=== PATIENT | female | born 1950 | race Hispanic/Latino ===

== ENCOUNTER 2021-07-26 10:44 | Emergency (ER) | payer MEDICARE, OTHER ==
[~2021-07-26] VITALS: Ht 160 cm; Wt 67.1 kg
[2021-07-26 10:46] VITALS: BP 129/72
[2021-07-26 13:15] VITALS: BP 121/65
== END 2021-07-26 13:16 | disposition home or self-care (01) ==
LOC: EDH 10:44
DX: S92.332A Displaced fracture of third metatarsal bone, left foot, initial encounter for closed fracture (principal); E11.9 Type 2 diabetes mellitus without complications; E78.00 Pure hypercholesterolemia, unspecified; I10 Essential (primary) hypertension; W23.0XXA Caught, crushed, jammed, or pinched between moving objects, initial encounter; Y93.89 Activity, other specified; Y92.89 Other specified places as the place of occurrence of the external cause; Y99.8 Other external cause status
CPT/HCPCS: 73630

== ENCOUNTER → 2021-11-10 | Outpatient (CLI) | payer OTHER ==
[~2021-11-10] MED LIST: ACET-2247 PO; CALC-1009 PO; CLOP75TA32 PO; INSU100I15 SQ; INSU100V37 SQ; LISI10TA24 PO; METF-444 PO; OMEP20CA12 PO; OXYB10TA30 PO; PRAV40TA3 PO
== END | disposition home or self-care (01) ==
LOC: SHCH 13:59
PROVIDERS: ATTEND Internal Medicine Cardiovascular Disease
DX: I73.9 Peripheral vascular disease, unspecified (principal); I83.93 Asymptomatic varicose veins of bilateral lower extremities; E11.59 Type 2 diabetes mellitus with other circulatory complications; R53.83 Other fatigue; R60.0 Localized edema
CPT/HCPCS: 93925; 93970

== ENCOUNTER 2021-12-28 06:45 | Observation (INO) | payer OTHER ==
[2021-12-23 14:31] LABS: BASOPHILS % (AUTO) 0.5 % (0.0-5.0); EOSINOPHILS % (AUTO) 1.2 % (0.0-8.0); HEMATOCRIT 35.4 % (36-48); LYMPHOCYTES % (AUTO) 24.3 % (21.0-51.0); MEAN CORPUSCULAR HEMOGLOBIN 26.7 pg (27.0-33.0); MEAN CORPUSCULAR HGB CONC 31.9 g/dL (32.0-36.0); MEAN CORPUSCULAR VOLUME 83.5 fL (79-99); MONOCYTES % (AUTO) 6.5 % (3.0-13.0); NEUTROPHILS % (AUTO) 67.1 % (40.0-77.0); PLATELET COUNT (AUTO) 345 K/uL (130-400); RED BLOOD CELL COUNT(AUTO) 4.24 MIL/uL (4.00-5.50); RED CELL DISTRIBUTION WIDTH 13.6 % (11.0-15.5); WHITE BLOOD COUNT (AUTO) 8.4 K/uL (4.8-10.8)
[2021-12-23 14:42] LABS: CREATININE 0.6 mg/dL (0.5-1.5); POTASSIUM 3.9 mmol/L (3.5-5.1)
[2021-12-23 14:45] LABS: PROTHROMBIN TIME 10.9 SEC (9.6-11.6)
[2021-12-23 14:46] LABS: PARTIAL THROMBOPLASTIN TIME 25.9 SEC (26.3-35.5)
[2021-12-27 11:54] VITALS: BP 159/78
[2021-12-28] VITALS (24 sets, daily range): BP systolic 115–193; BP diastolic 56–86
[~2021-12-28] VITALS: Ht 160 cm; Wt 64.1 kg
[~2021-12-28 06:45] MED LIST changes: -ACET-2247 PO; +CEFAZOLIN SODIUM 1 GM VIAL IVP ONE
[2021-12-28] MEDS ORDERED: 0.9%NACL 1000ML 1,000 ML IV ONE (07:46)
[2021-12-28] MEDS ORDERED: CEFAZOLIN SODIUM 1 GM VIAL ONE (07:46)
[2021-12-28] MEDS ORDERED: LACTATED RINGERS 1000ML 1,000 ML IV SCH (08:00)
[2021-12-28] MEDS ORDERED: SUCCINYLCHOLINE CHLORIDE 20 MG/ML 10 ML VIAL ONE (08:43)
[2021-12-28] MEDS ORDERED: LIDOCAINE PF 100MG/5ML (2%) SYRINGE 5ML ONE (08:43)
[2021-12-28] MEDS ORDERED: FENTANYL CITRATE PF 50 MCG/1 ML 2ML VIAL ONE (08:44)
[2021-12-28] MEDS ORDERED: ROCURONIUM 10MG/1ML SYR 10 MG/ML ML ONE ×2 (08:44→11:18)
[2021-12-28] MEDS ORDERED: PROPOFOL 10 MG/ML 20ML VIAL IV ONE (08:44)
[2021-12-28] MEDS ORDERED: ROPIVACAINE 0.5% 5MG/ML 30ML IJ ONE (08:48)
[2021-12-28] MEDS ORDERED: MIDAZOLAM HCL 1 MG/ML 2ML VIAL ONE (09:37)
[2021-12-28] MEDS ORDERED: 0.9%NACL 10ML VIAL ONE (10:08)
[2021-12-28] MEDS ORDERED: PHENYLEPHRINE HCL 10 MG/ML 1ML VIAL IV ONE (10:08)
[2021-12-28] MEDS ORDERED: TRANEXAMIC ACID 1000MG/10ML ONE (10:20)
[2021-12-28] MEDS: 0.9%NACL 1000ML 1,000 ML IV SCH ×2 (10:30→22:49)
[2021-12-28] MEDS ORDERED: ONDANSETRON 4MG INJ IVP PRN (10:30)
[2021-12-28] MEDS: ACETAMINOPHEN 500 MG TABLET PO SCH ×2 (10:30→17:56)
[2021-12-28] MEDS ORDERED: MORPHINE 4 MG SYG IVP PRN (10:30)
[2021-12-28] MEDS ORDERED: HYDROCODONE/ACETAMINOPHEN 5/325 MG TAB PO PRN (10:30)
[2021-12-28] MEDS ORDERED: HYDROCODONE/ACETAMINOPHEN 10/325 MG TAB PO PRN (10:30)
[2021-12-28] MEDS ORDERED: EPHEDRINE SULFATE 50 MG/ML AMPULE ONE (11:16)
[2021-12-28] MEDS: INSULIN HUMULIN R 100 UNIT/ML 3ML SQ SCH ×3 (11:30→22:00)
[2021-12-28] MEDS ORDERED: GLYCOPYRROLATE 1 MG/5 ML SYRINGE ONE (11:58)
[2021-12-28] MEDS ORDERED: NEOSTIGMINE 5MG/5ML SYR IV ONE (11:58)
[2021-12-28] MEDS ORDERED: KETOROLAC 30MG VIAL (30MG/ML) ONE (11:59)
[2021-12-28] MEDS: TRAMADOL HCL 50 MG TABLET PO SCH ×2 (12:00→17:56)
[2021-12-28] MEDS ORDERED: ESMOLOL HCL 10 MG/ML 10 ML VIAL ONE (12:01)
[2021-12-28] MEDS: INSULIN LISPRO 100 UNIT/ML 3ML SQ SCH (12:32)
[2021-12-28] MEDS: CEFAZOLIN SODIUM 1 GM VIAL IVP SCH ×2 (15:46→22:49)
[2021-12-28] MEDS ORDERED: OXYBUTYNIN 5 MG TAB.SR.24H PO SCH (21:00)
[2021-12-28] MEDS: METFORMIN HCL 500 MG TABLET PO SCH (21:47)
[2021-12-28] MEDS: FAMOTIDINE 20MG TAB PO SCH (21:47)
[2021-12-28] MEDS: ASPIRIN 81 MG EC TAB PO SCH (21:47)
[2021-12-29] MEDS: TRAMADOL HCL 50 MG TABLET PO SCH ×3 (01:06→13:43)
[2021-12-29] MEDS: ACETAMINOPHEN 500 MG TABLET PO SCH ×2 (03:51→13:43)
[2021-12-29 04:31] VITALS: BP 144/83
[2021-12-29] MEDS: INSULIN HUMULIN R 100 UNIT/ML 3ML SQ SCH ×2 (05:43→11:30)
[2021-12-29 05:56] LABS: HEMATOCRIT 31.8 % (36-48); MEAN CORPUSCULAR HEMOGLOBIN 26.1 pg (27.0-33.0); MEAN CORPUSCULAR HGB CONC 31.1 g/dL (32.0-36.0); MEAN CORPUSCULAR VOLUME 83.7 fL (79-99); RED BLOOD CELL COUNT(AUTO) 3.8 MIL/uL (4.00-5.50); RED CELL DISTRIBUTION WIDTH 13.6 % (11.0-15.5); WHITE BLOOD COUNT (AUTO) 10.8 K/uL (4.8-10.8)
[2021-12-29 06:13] LABS: CREATININE 0.4 mg/dL (0.5-1.5); POTASSIUM 3.5 mmol/L (3.5-5.1)
[2021-12-29] MEDS: 0.9%NACL 1000ML 1,000 ML IV SCH (06:30)
[2021-12-29 07:58] VITALS: BP 138/69
[2021-12-29] MEDS: INSULIN LISPRO 100 UNIT/ML 3ML SQ SCH (08:27)
[2021-12-29] MEDS: ASPIRIN 81 MG EC TAB PO SCH (08:28)
[2021-12-29] MEDS: METFORMIN HCL 500 MG TABLET PO SCH (08:28)
[2021-12-29] MEDS: FAMOTIDINE 20MG TAB PO SCH (08:28)
[2021-12-29] MEDS ORDERED: INSULIN DEGLUDEC 64 UNIT SQ SCH (09:00)
[2021-12-29] MEDS ORDERED: LISINOPRIL 10 MG TABLET PO SCH (09:00)
[2021-12-29] MEDS ORDERED: POLYETHYLENE GLYCOL 3350 17 GM POWD.PACK PO SCH (09:00)
[2021-12-29 11:12] VITALS: BP 138/72
[2021-12-29 16:02] VITALS: BP 133/71
[2021-12-31] MEDS ORDERED: BISACODYL 10 MG SUPP.RECT RC PRN (10:30)
== END 2021-12-29 18:05 | disposition home or self-care (01) ==
LOC: DAH 06:45 → DAHIP 06:46 → 3AH 06:47
PROVIDERS: ADMIT Orthopaedic Surgery; ATTEND Orthopaedic Surgery
DX: S42.241A 4-part fracture of surgical neck of right humerus, initial encounter for closed fracture (principal); M25.511 Pain in right shoulder; I10 Essential (primary) hypertension; E11.9 Type 2 diabetes mellitus without complications; E78.00 Pure hypercholesterolemia, unspecified; Z79.84 Long term (current) use of oral hypoglycemic drugs; Z85.3 Personal history of malignant neoplasm of breast; Z79.899 Other long term (current) drug therapy; Z98.890 Other specified postprocedural states; W01.0XXA Fall on same level from slipping, tripping and stumbling without subsequent striking against object, initial encounter; Y93.89 Activity, other specified; Y92.89 Other specified places as the place of occurrence of the external cause; Y99.8 Other external cause status
CPT/HCPCS: 23472; 36415 ×2; 64415; 73030 ×2; 76942; 80048 ×2; 82948 ×7; 85025; 85027; 85610; 85730; 87635; 93005; 96372 ×2; 96374; 96375; 96376; 97039 ×2; 97116 ×2; 97161; 97530 ×2; A4215; A4221; A4222; A4223; A4565; A4600; A4649 ×4; A4663; A6212; A6260; C1776; C9803; G0378 ×27; J0330; J0690 ×3; J1815 ×3; J1885; J2001; J2250; J2270; J2370; J2405; J2704; J2710; J2795; J3010; J3490 ×4; J7030 ×3

== ENCOUNTER 2024-11-12 14:27 | Emergency (ER) | payer OTHER ==
[~2024-11-12] VITALS: Ht 162.6 cm; Wt 54.4 kg
[~2024-11-12 14:27] MED LIST changes: -CEFAZOLIN SODIUM 1 GM VIAL IVP ONE
[2024-11-12 15:03] LABS: BASOPHILS # (AUTO) 0.04 K/uL (0.00-0.20); BASOPHILS % (AUTO) 0.4 % (0.0-5.0); EOSINOPHILS # (AUTO) 0.03 K/uL (0.00-0.70); EOSINOPHILS % (AUTO) 0.3 % (0.0-8.0); HEMATOCRIT 38.2 % (36-48); IMMATURE GRANULOCYTE ABSOLUTE 0.05 K/uL (0-1); LYMPHOCYTES # (AUTO) 1.9 K/uL (1.0-4.8); LYMPHOCYTES % (AUTO) 17.3 % (21.0-51.0); MEAN CORPUSCULAR HEMOGLOBIN 26.2 pg (27.0-33.0); MEAN CORPUSCULAR HGB CONC 31.7 g/dL (32.0-36.0); MEAN CORPUSCULAR VOLUME 82.9 fL (79-99); MONOCYTES # (AUTO) 0.8 K/uL (0.1-1.0); MONOCYTES % (AUTO) 6.9 % (3.0-13.0); NEUTROPHILS # (AUTO) 8.1 K/uL (1.8-7.7); NEUTROPHILS % (AUTO) 74.6 % (40.0-77.0); PLATELET COUNT (AUTO) 317 K/uL (130-400); RED BLOOD CELL COUNT(AUTO) 4.61 MIL/uL (4.00-5.50); RED CELL DISTRIBUTION WIDTH 14.3 % (11.0-15.5); WHITE BLOOD COUNT (AUTO) 10.8 K/uL (4.8-10.8)
[2024-11-12 15:17] LABS: CREATININE 0.6 mg/dL (0.5-1.0); POTASSIUM 3.2 mmol/L (3.5-5.1)
[2024-11-12 15:24] LABS: B-TYPE NATRIURETIC PEPTIDE 29 pg/mL (0-100)
--- NOTE | 2024-11-12 15:45 | HMCIMG ---
CHEST 1VW HISTORY: Chest pain COMPARISON: None FINDINGS: A frontal projection of the chest was obtained. Prominent interstitial markings are seen with possible superimposed infiltrates. Right shoulder replacement changes are seen. The heart is borderline enlarged. Degenerative changes are seen. No evidence of aortic calcification is seen. IMPRESSION: 1. Prominent interstitial markings are seen with possible superimposed infiltrates.
--- NOTE | 2024-11-12 17:19 | ERN ---
General Chief Complaint: Mechanical Fall Stated Complaint: FALL YESTERDAY, CHEST AND BACK PAIN Time Seen by MD: 14:54 Time Seen by Midlevel: 14:54 Source: patient History of Present Illness Initial Comments 74-year-old female presents to the ED for evaluation post fall onset 1 day ago. Patient reports chest and back pain, but denies any LOC, head injury or any other associated symptoms at this time. Allergies: Coded Allergies: No Known Allergies (Unverified Allergy, Unknown, 07/26/21) Home Meds Reported Medications Lisinopril (Lisinopril) 10 Mg Tablet, 10 MG PO DAILY, TAB 12/27/21 Oxybutynin Chloride (Oxybutynin Chloride ER) 10 Mg Tab.er.24, 10 MG PO DAILY 12/27/21 Calcium Carb & Cit/Vitamin D3 (Calcium + D3 ER Tablet) 1 Each Tablet.er, 2 EACH PO DAILY, TAB 12/27/21 Clopidogrel Bisulfate (Clopidogrel) 75 Mg Tablet, 75 MG PO DAILY, TAB 12/27/21 Omeprazole (Omeprazole) 20 Mg Capsule.dr, 20 MG PO DAILY, CAP 12/27/21 Pravastatin Sodium (Pravastatin Sodium) 40 Mg Tablet, 40 MG PO HS, TAB 12/27/21 Metformin HCl (Metformin HCl) 500 Mg Tablet, 1000 MG PO BID, TAB 12/27/21 Insulin Lispro (Humalog) 100 Unit/1 Ml Insuln.pen, 6 UNITS SQ DAILY, SYRINGE 12/27/21 Insulin Degludec (Tresiba) 100 Unit/1 Ml Vial, 64 UNIT SQ DAILY, VIAL 12/27/21 Past Medical History Past Medical History: Diabetes-Type II Medical History Other: BREAT CANCER Past Surgical History: Other Surgical History Other: RIGHT LEG ROS Dictation Constitutional: Positive for fall Negative for fever,chills, and weight loss Eyes: Negative for injury, pain,redness, and discharge ENT: Negative for injury,pain or swelling Cardiovascular: Positive for its history negative for palpitations, and edema Respiratory: Negative for shortness of breath, cough, and wheezing, Abdomen/GI: Negative for abdominal pain, nausea, vomiting, diarrhea, and constipation Back: Positive for back pain : Negative for injury, bleeding and discharge MS/Extremity: Negative for injury and deformity Skin: Negative for rash, and discoloration Neuro: Negative for weakness, numbness, tingling, and seizure Psych: Negative for suicide ideation, homicidal ideation, and hallucinations Physical Exam Physical Exam Dictation General: awake, alert, NAD Head/Face: Normocephalic, atraumatic Eyes: PERRL, EOMI, vision at baseline ENT: oral cavity clear, TMs clear, no signs of infection Neck: Trachea midline, supple, no nuchal rigidity Cardiovascular: RRR, normal S1/S2, No MRGs, no JVD Respiratory: CTAB, no respiratory distress, No rales or wheezes Abdomen: Soft, non-tender, non-distended, normal bowel sounds, no guarding or rebound. Skin: Warm, dry, normal turgor, no rash MS/Extremity: Pulses equal, no cyanosis, neurovascular intact, FROM Neuro: COAx4, GCS 15, strength 5/5, CN 2-12 intact, normal cerebellar exam, normal gait, Psych: Normal behavior, mood, and affect normal Results Laboratory and Microbiology Lab and Micro Result Laboratory Tests Test 11/12/24 14:48 White Blood Count 10.8 K/uL (4.8-10.8) Red Blood Count 4.61 MIL/uL (4.00-5.50) Hemoglobin 12.1 g/dL (12.0-16.0) Hematocrit 38.2 % (36-48) Mean Corpuscular Volume 82.9 fL (79-99) Mean Corpuscular Hemoglobin 26.2 pg (27.0-33.0) L Mean Corpuscular Hemoglobin Concent 31.7 g/dL (32.0-36.0) L Red Cell Distribution Width 14.3 % (11.0-15.5) Platelet Count 317 K/uL (130-400) Mean Platelet Volume 11.2 fL (7.5-10.5) H Immature Granulocyte % (Auto) 0.5 % (0-1) Neutrophils (%) (Auto) 74.6 % (40.0-77.0) Lymphocytes (%) (Auto) 17.3 % (21.0-51.0) L Monocytes (%) (Auto) 6.9 % (3.0-13.0) Eosinophils (%) (Auto) 0.3 % (0.0-8.0) Basophils (%) (Auto) 0.4 % (0.0-5.0) Neutrophils # (Auto) 8.1 K/uL (1.8-7.7) H Lymphocytes # (Auto) 1.9 K/uL (1.0-4.8) Monocytes # (Auto) 0.8 K/uL (0.1-1.0) Eosinophils # (Auto) 0.03 K/uL (0.00-0.70) Basophils # (Auto) 0.04 K/uL (0.00-0.20) Absolute Immature Granulocyte (auto 0.05 K/uL (0-1) Nucleated Red Blood Cells 0.0 % (0.0-0.19) Sodium Level 140 mmol/L (136-145) Potassium Level 3.2 mmol/L (3.5-5.1) L Chloride Level 101 mmol/L (101-111) Carbon Dioxide Level 32 mmol/L (21-32) Blood Urea Nitrogen 11 mg/dL (7-18) Creatinine 0.6 mg/dL (0.5-1.0) Glomerular Filtration Rate Calc 93 mL/min (>90) Random Glucose 208 mg/dL (70-105) H Total Calcium 9.4 mg/dL (8.5-10.1) Total Creatine Kinase 228 U/L (21-232) B-Type Natriuretic Peptide 29 pg/mL (0-100) Labs Reviewed?: Yes MDM MDM: Differential diagnosis: Fall, chest pain, back pain Previous outside records reviewed: Old ER visits. Need for hospitalization: Patient does not meet criteria for hospitalization. Need for emergency major/minor surgery: No Patient's prior external medical records from other ER visits were reviewed by me as indicated. Prior testing and results from previous visits were reviewed. Prior tests were taken into account with medical decision making and resource utilization, independent historian/historians were used to obtain complete medical history. I independently interpreted the test that were performed, results were reviewed by me and considered findings on radiology if ordered. Medical management and examination interpretation discussions were had by me with other qualified healthcare professionals as indicated for the patient's care. ED Course Orders Procedure Category Date Status Time Vital Signs Per CPOE 11/12/24 Transmitted Routine 14:32 B-Type Natriuretic LAB 11/12/24 Complete Peptide 14:32 Chest 1vw RAD 11/12/24 Resulted 14:32 12 Lead Ekg Tracing- EKG 11/12/24 Logged Technical 14:32 Oxygen By Nc/Pulse Ox CPOE 11/12/24 Transmitted 14:32 Maintain Iv CPOE 11/12/24 Transmitted 14:32 Iv Insertion CPOE 11/12/24 Transmitted 14:32 Cardiac Monitoring CPOE 11/12/24 Transmitted 14:32 Pulse Oximetry With CPOE 11/12/24 Transmitted Vs And Prn 14:32 Cbc With Differential LAB 11/12/24 Complete 14:32 Activity: Br W/Brp CPOE 11/12/24 Transmitted With Assist 14:32 Creatine Kinase, Total LAB 11/12/24 Complete 14:32 Urinalysis Profile LAB 11/12/24 Logged 14:32 Troponin Poc Order LAB 11/12/24 Complete Only 14:32 Bedside Troponin-I LAB.ER 11/12/24 In Process (Poc) 14:32 Basic Metabolic Panel LAB 11/12/24 Complete 14:32 Ct Chest W/O Contrast CT 11/12/24 Resulted 17:04 Vital Signs Date Time Temp Pulse Resp B/P (MAP) Pulse Ox O2 Delivery O2 Flow Rate FiO2 11/12/24 14:27 98.8 88 20 189/107 98 Room Air [address] [address] IMAGING REPORT Signed PATIENT: KERWIN MORRISSEY MR#: [id number] : 1950 SEX: F AGE: 74 LOCATION: [facility] ORDER 06 STATUS: REG ER REPORT#: [id number] SERVICE 03 REASON: pain over thoracic vertebraes/ribs s/p fall ORDERING PHYSICIAN: POOJA CHAMBERS PROCEDURE: CHEST WO - CT CHEST W/O CONTRAST CT NONCONTRAST CHEST Comparison Study: none History: pain over thoracic vertebraes/ribs s/p fall Technique: Helical CT of the chest without IV contrast at 5 mm collimation. Coronal and sagittal reformations also done. CT Dose Index (CTDI): 2.38 mGy Dose Length Product (DLP): 94.8 total mGy-cm Findings: The airway is intact. The trachea and major bronchi are unremarkable. The chest exam shows no pulmonary nodules or masses. No significant pulmonary parenchymal abnormalities are noted. No pulmonary infiltrates or mass lesions are seen. No pleural effusions are identified. There is no pneumothorax. There is no evidence of pneumomediastinum. The nonenhanced exam of the [place] and mediastinum is unremarkable. No evidence of hilar enlargement is seen. The aorta shows no aneurysmal dilatation or significant atheromatous calcification. No significant brachiocephalic vascular abnormalities are seen. The heart is unremarkable. It is not enlarged. No significant coronary arterial calcifications are seen. There is no pericardial effusion. The rib cage appears unremarkable. The soft tissues of the chest wall are unremarkable. The dorsal spine shows no significant abnormalities. Moderate to large hiatal hernia. IMPRESSION: NORMAL CT OF THE CHEST WITHOUT CONTRAST. This study was performed using dose reduction techniques to include automated exposure control and/or adjustment of the mA and/or kV according to patient size. DICTATED BY: JOAQUIN FRANCOIS MD DATE: 11/12/241733 ELECTRONICALLY SIGNED BY: JOAQUIN FRANCOIS MD DATE: 11/12/241736 [place] [id number] IMAGING REPORT Signed PATIENT: KERWIN MORRISSEY MR#: [id number] : 1950 SEX: F AGE: 74 LOCATION: [facility] ORDER 32 STATUS: [facility] REPORT#: [id number] SERVICE 143 REASON: CHEST PAIN ORDERING PHYSICIAN: MONICA CARTAGENA MD PROCEDURE: CXR1VW - CHEST 1VW CHEST 1VW HISTORY: Chest pain COMPARISON: None FINDINGS: A frontal projection of the chest was obtained. Prominent interstitial markings are seen with possible superimposed infiltrates. Right shoulder replacement changes are seen. The heart is borderline enlarged. Degenerative changes are seen. No evidence of aortic calcification is seen. IMPRESSION: 1. Prominent interstitial markings are seen with possible superimposed infiltrates. DICTATED BY: ZEV JOHNSON MD DATE: 11/12/241542 ELECTRONICALLY SIGNED BY: ZEV JOHNSON MD DATE: 11/12/241544 DX & DISP Disposition: Discharge Departure Impression: Primary Impression: Chest wall contusion Additional Impression: Muscle strain of upper back Condition: Stable Additional Instructions: Your chest x-ray and CT scan of the chest are negative for any acute fracture or injury. Your blood work today is stable. You will need to follow up with your primary care doctor in 2-3 days for repeat evaluation. You may take Tylenol and Motrin for pain. Referrals: FILIPE SUERO MD (PCP) I have reviewed, & agreed with my scribe's, documentation. (Entered by Harvey Henson, acting as a scribe for TYE Chambers) I have reviewed the case, and I agree with, Diagnosis and Plan I performed the substantive portion of the visit. I have reviewed and pers onally made and approve the management plan that is documented in the note by myself or the JOE. I acknowledge for responsibility for the patient's management plan. I personally scribed for POOJA CHAMBERS ([facility]) on 11/12/24 at 17:19. Electronically submitted by Harvey Henson ([email or web address]). POOJA CHAMBERS Nov 12, 2024 17:19
--- NOTE | 2024-11-12 17:37 | HMCIMG ---
CT NONCONTRAST CHEST Comparison Study: none History: pain over thoracic vertebraes/ribs s/p fall Technique: Helical CT of the chest without IV contrast at 5 mm collimation. Coronal and sagittal reformations also done. CT Dose Index (CTDI): 2.38 mGy Dose Length Product (DLP): 94.8 total mGy-cm Findings: The airway is intact. The trachea and major bronchi are unremarkable. The chest exam shows no pulmonary nodules or masses. No significant pulmonary parenchymal abnormalities are noted. No pulmonary infiltrates or mass lesions are seen. No pleural effusions are identified. There is no pneumothorax. There is no evidence of pneumomediastinum. The nonenhanced exam of the [place] and mediastinum is unremarkable. No evidence of hilar enlargement is seen. The aorta shows no aneurysmal dilatation or significant atheromatous calcification. No significant brachiocephalic vascular abnormalities are seen. The heart is unremarkable. It is not enlarged. No significant coronary arterial calcifications are seen. There is no pericardial effusion. The rib cage appears unremarkable. The soft tissues of the chest wall are unremarkable. The dorsal spine shows no significant abnormalities. Moderate to large hiatal hernia. IMPRESSION: NORMAL CT OF THE CHEST WITHOUT CONTRAST. This study was performed using dose reduction techniques to include automated exposure control and/or adjustment of the mA and/or kV according to patient size.
--- NOTE | 2024-11-12 17:55 | NUR ---
ASSUMED CARE AT THIS TIME. PT MOVED INTO INTERNAL WAITING AREA FOR ASSESSMENT AND DISCHARGE INSTRUCTIONS.
[2024-11-12 17:56] VITALS: BP 144/87; PULSE 85; RESP 20; TEMP 96.6; O2SAT 97
--- NOTE | 2024-11-13 08:22 | EKG ---
[facility] Test Date: 2024-11-12 Test Time: 14:25:14 Pat Name: KERWIN MORRISSEY Department: [facility] Room: Gender: F Environmental Education Specialist: [id number] : 1950 Requested By: MONICA CARTAGENA Order Number: [id number] Reading MD: Corby Allen Measurements Intervals [place] Rate: 86 P: 88 HI: 151 QRS: 79 QRSD: 82 T: 83 QT: 386 QTc: 463 Interpretive Statements Sinus rhythm Consider left ventricular hypertrophy ST elevation, consider inferior injury Compared to ECG 12/23/2021 15:22:21 ST (T wave) deviation now present Myocardial infarct finding now present Electronically Signed On 11-13-2024 17:02:08 STAFF TOXICOLOGIST by Corby Allen Please click the below link to view image of tracing.
== END 2024-11-12 18:00 | disposition home or self-care (01) ==
LOC: EDH 14:27
DX: S29.012A Strain of muscle and tendon of back wall of thorax, initial encounter (principal); S20.219A Contusion of unspecified front wall of thorax, initial encounter; E11.9 Type 2 diabetes mellitus without complications; Z79.02 Long term (current) use of antithrombotics/antiplatelets; Z79.4 Long term (current) use of insulin; Z79.84 Long term (current) use of oral hypoglycemic drugs; Z79.899 Other long term (current) drug therapy; W18.39XA Other fall on same level, initial encounter; Y93.89 Activity, other specified; Y92.89 Other specified places as the place of occurrence of the external cause; Y99.8 Other external cause status
CPT/HCPCS: 36415; 71045; 71250; 80048; 82550; 83880; 84484; 85025; 93005; 99285

== ENCOUNTER 2024-11-19 05:27 | Emergency (ER) | payer OTHER ==
[~2024-11-19] VITALS: Ht 162.6 cm; Wt 53.5 kg
[2024-11-19] MEDS: diazePAM 2 MG TAB PO ONE (06:41)
[2024-11-19] MEDS: LIDOCAINE 5% TOPICAL PATCH TP ONE (06:42)
[2024-11-19] MEDS: morPHINE 2 MG SYG IM ONE (06:42)
--- NOTE | 2024-11-19 06:43 | ERN ---
ED Note History of Present Illness Stated Complaint: BACK PAIN Chief Complaint: Back Pain or Injury Time Seen by MD: 05:33 Dictation: This 74-year-old female presents in the emergency department by EMS complaining of pain in the upper back since a fall a couple of weeks ago. The patient was seen here November 12 after the fall and had a CT scan of the chest which was read as normal. At that time she had some blood work which showed mild hypokalemia. A chest x-ray was normal. She was discharged home and advised to take Tylenol which she has been doing without relief. She describes the pain as constant. It is exacerbated by movements in interfering with her ability to sleep. The patient denies any distal weakness, numbness or tingling. She has had no ENT symptoms nausea, vomiting or diarrhea, constipation or or GI symptoms. There has been no fever or cough and no shortness of breath. She describes the pain as in the upper back located in the whole of the back radiating from [id number] in the area of the scapula and trapezius. The patient has a history of breast cancer cared for in the remote past by , she has not followed up in a long time for this problem. She has had surgery of the right leg and has a history of diabetes. The patient does not smoke, drink use recreational drugs. She lives alone Allergies: Coded Allergies: No Known Allergies (Unverified Allergy, Unknown, 07/26/21) Home Meds Reported Medications Lisinopril (Lisinopril) 10 Mg Tablet, 10 MG PO DAILY, TAB 12/27/21 Oxybutynin Chloride (Oxybutynin Chloride ER) 10 Mg Tab.er.24, 10 MG PO DAILY 12/27/21 Calcium Carb & Cit/Vitamin D3 (Calcium + D3 ER Tablet) 1 Each Tablet.er, 2 EACH PO DAILY, TAB 12/27/21 Clopidogrel Bisulfate (Clopidogrel) 75 Mg Tablet, 75 MG PO DAILY, TAB 12/27/21 Omeprazole (Omeprazole) 20 Mg Capsule.dr, 20 MG PO DAILY, CAP 12/27/21 Pravastatin Sodium (Pravastatin Sodium) 40 Mg Tablet, 40 MG PO HS, TAB 12/27/21 Metformin HCl (Metformin HCl) 500 Mg Tablet, 1000 MG PO BID, TAB 12/27/21 Insulin Lispro (Humalog) 100 Unit/1 Ml Insuln.pen, 6 UNITS SQ DAILY, SYRINGE 12/27/21 Insulin Degludec (Tresiba) 100 Unit/1 Ml Vial, 64 UNIT SQ DAILY, VIAL 12/27/21 Past Medical History Past Medical History: Diabetes-Type II Additional Past Medical Hx: BREAT CANCER Surgical History: Other Surgical History Other: RIGHT LEG History: Not Applicable RN Note Reviewed/Agreed w/PFSH: Yes Review of System Dictation All pertinent systems reviewed, negative except as documented in the HPI The ROS is obtained from patient GENERAL/CONSTITUTIONAL: Negative except as documented in HPI. ENT: Negative except as documented in HPI. CARDIOVASCULAR: Negative except as documented in HPI. RESPIRATORY: Negative except as documented in HPI. GASTROINTESTINAL: Negative except as documented in HPI. GENITOURINARY: Negative except as documented in HPI. MUSCULOSKELETAL: Negative except as documented in HPI. SKIN: Negative except as documented in HPI. NEUROLOGIC: Negative except as documented in HPI. Initial Vital Sign VS Vital Signs Date Time Temp Pulse Resp B/P (MAP) Pulse Ox O2 Delivery O2 Flow Rate FiO2 11/19/24 05:31 98.4 80 16 181/77 99 Room Air 0 11/19/24 06:15 21 Physical Exam Dictation VITAL SIGNS: note is made of triage vital signs CONSTITUTIONAL: This is a nontoxic patient who is awake, alert, and appropriately interactive. She is noted to be very uncomfortable when she tries to sit up or turn from [id number]. HEAD: Normocephalic, Atraumatic. EYES: Periorbital areas with no swelling, redness, or edema. Lids and lashes are normal. Conjunctival injection is absent. Sclera anicteric. Pupils equal, round, reactive to light. ENT: No nasal discharge noted. Posterior pharynx is without exudate, redness, swelling, masses, or evidence of obstruction. Uvula midline. Mucous membranes moist. NECK: Trachea midline, no masses palpated, and no cervical lymphadenopathy. No swelling. Supple, full range of motion without nuchal rigidity. No vertebral point tenderness. No meningismus. CHEST/AXILLA: Normal chest wall appearance and motion. No tenderness. No crepitus. CV: Normal rate, regular rhythm. No murmur. No edema. RESPIRATORY:Respiratory rate is normal. Bilateral equal breath sounds with good airflow. Normal breath sounds are noted. No rales, rhonchi or wheezes noted. No increased work of breathing, no retractions. ABDOMEN: Inspection normal. No distention is appreciated. Bowel sounds are normal. No mass or organomegaly is appreciated. There is no tenderness. No rebound. No rigidity. No voluntary or involuntary guarding. BACK: Inspection is normal. Upper back midline tenderness is appreciated. The patient appears uncomfortable when moving. : No CVA tenderness or bladder tenderness. SKIN: Warm, dry, with normal turgor. Capillary refill less than 3 seconds. Normal color.No rash. No cellulitis or abscess. No evidence of acute injury. MS/Extremity: There is no calf tenderness. Baseline range of motion is noted in all 4 extremities. There are no deformities. NEURO: Awake and alert, lucid. Facies symmetric and speech is clear. Motor strength 5/5 in all extremities. Sensory grossly intact. PSYCH: Patient is appropriately attentive and cooperative without evidence of hallucination. Results (Laboratory/Radiology) Laboratory/Radiology Laboratory Tests Test 11/19/24 06:32 White Blood Count 8.6 K/uL (4.8-10.8) Red Blood Count 4.43 MIL/uL (4.00-5.50) Hemoglobin 11.5 g/dL (12.0-16.0) L Hematocrit 36.6 % (36-48) Mean Corpuscular Volume 82.6 fL (79-99) Mean Corpuscular Hemoglobin 26.0 pg (27.0-33.0) L Mean Corpuscular Hemoglobin Concent 31.4 g/dL (32.0-36.0) L Red Cell Distribution Width 14.8 % (11.0-15.5) Platelet Count 316 K/uL (130-400) Mean Platelet Volume 10.6 fL (7.5-10.5) H Immature Granulocyte % (Auto) 0.3 % (0-1) Neutrophils (%) (Auto) 61.9 % (40.0-77.0) Lymphocytes (%) (Auto) 28.8 % (21.0-51.0) Monocytes (%) (Auto) 7.5 % (3.0-13.0) Eosinophils (%) (Auto) 0.9 % (0.0-8.0) Basophils (%) (Auto) 0.6 % (0.0-5.0) Neutrophils # (Auto) 5.3 K/uL (1.8-7.7) Lymphocytes # (Auto) 2.5 K/uL (1.0-4.8) Monocytes # (Auto) 0.6 K/uL (0.1-1.0) Eosinophils # (Auto) 0.08 K/uL (0.00-0.70) Basophils # (Auto) 0.05 K/uL (0.00-0.20) Absolute Immature Granulocyte (auto 0.03 K/uL (0-1) Nucleated Red Blood Cells 0.0 % (0.0-0.19) Erythrocyte Sedimentation Rate 20 MM/HR (0-30) Sodium Level 141 mmol/L (136-145) Potassium Level 3.6 mmol/L (3.5-5.1) Chloride Level 102 mmol/L (101-111) Carbon Dioxide Level 35 mmol/L (21-32) H Blood Urea Nitrogen 10 mg/dL (7-18) Creatinine 0.4 mg/dL (0.5-1.0) L Glomerular Filtration Rate Calc 103 mL/min (>90) Random Glucose 146 mg/dL (70-105) H Total Calcium 9.1 mg/dL (8.5-10.1) C-Reactive Protein, Quantitative 9.00 mg/L (0.5-3.0) H Labs Reviewed?: Yes EKG Comment: Time reviewed: 6:50 a.m. EKG number; 1 Rate and rhythm: Sinus rhythm at 75 beats per minute [place]:normal Morphology: Left ventricular hypertrophy NV interval: normal QT interval: normal ST/Twaves: normal Impression: normal sinus rhythm without STEMI or ectopy Comparison EKG: none EKG INTERPRETATION by Dr. Sia Khanna ED Course ED Course Orders Procedure Category Date Status Time Diazepam 2 Mg Tab PHA 11/19/24 Complete (Valium 2 Mg Tab) 06:30 Morphine 2mg Syg PHA 11/19/24 Complete (Morphine 2mg Syg) 06:30 Lidocaine (Lidoderm PHA 11/19/24 Complete Patch 5%) 06:30 12 Lead Ekg Tracing- EKG 11/19/24 Complete Technical 06:19 Cbc With Differential LAB 11/19/24 Complete 06:19 Basic Metabolic Panel LAB 11/19/24 Complete 06:19 Crp Quantitative LAB 11/19/24 Complete 06:19 Erythrocyte LAB 11/19/24 Complete Sedimentation Rate 06:19 Current Medications Medications (Trade) Dose Ordered Sig/Jessica Route PRN Reason Start Time Stop Time Status Last Admin Dose Admin Diazepam (VALium 2 mg Tab) 2 mg ONCE ONCE PO 11/19/24 06:30 11/19/24 06:38 DC 11/19/24 06:41 Lidocaine (Lidoderm Patch 5%) 1 patch ONCE ONCE TP 11/19/24 06:30 11/19/24 06:38 DC 11/19/24 06:42 Morphine Sulfate (morPHINE 2MG SYG) 2 mg ONCE ONCE IM 11/19/24 06:30 11/19/24 06:38 DC 11/19/24 06:42 Vital Signs Date Time Temp Pulse Resp B/P (MAP) Pulse Ox O2 Delivery O2 Flow Rate FiO2 11/19/24 06:15 98.4 82 18 157/87 99 Room Air* 0 21 11/19/24 05:31 98.4 80 16 181/77 99 Room Air 0 Medical Decision Making MDM INITIAL IMPRESSION Initial history and physical concerning for bony injury versus acute exacerbation of arthritic disease Contributing medical problems: Previous history of breast cancer raises the possibility of malignant spinal disease or bony disease I have reviewed the triage nursing notes and vital signs. The patient is afebrile with acceptable oxygen saturation, heart rate and blood pressure. Initial plan: I will be reviewing her previous studies and repeating some lab works and she was hypokalemic on last visit DATA REVIEW I have reviewed additional NN, repeat VS, and monitoring where indicated. Heart rate, blood pressure, and O2 saturation are acceptable. [place] diagnostic results: CBC is notable for mild anemia. Chemistries show a glucose of 146. Calcium is 9.1. CRP is nine but an ESR is 20 Other independent historian: none Review of external data: The patient's CT of the chest was read as unremarkable including bony structures. However on my review there was an upper thoracic vertebral body, possibly T3 with compression findings I will be confirming this with Radiology over-read during the patient's stay Call was placed to the on-call radiologist for today at 7:35 a.m.. At 8:25 a.m. we continue to await his call back I was able to reach the on-call radiologist approximately 9:05 a.m.. He reviewed the film and acknowledged the presence of the compression fracture but felt that it had no characteristics of metastatic disease and no evidence of significant compression to the cord or other ominous finding. ED COURSE Interventions: The patient initially received something for muscle relaxation, Valium and some pain medication morphine but states that now the pain has moved over more to the right flank area. Reassessment: She continues to complain of pain but appears well and nontoxic without evidence of malignant or infectious disease. Plan is to treat with a dose of steroids and nonsteroidals here and prescribe a small amount of Tylenol codeine to be used at home until she can see her PCP this week DISPOSITION Final diagnostic impression: Back pain without evidence of neurologic compromise, malignant finding on recent CT, or signs of infection I discussed my findings, clinical impression and treatment recommendations with the patient. I have reviewed the social factors contributing to the patient's presentation and disposition planning. My final plan for disposition was made based upon clinical findings, response to treatment and discussion with the patient regarding management options. I consulted with the radiologist regarding a finding on the CT scan done on the 12 of November Hospitalization is not indicated due to low risk of short term progression, complication, morbidity or mortality related to the current diagnosis At the time of discharge, the vital signs are within acceptable limits. Repeat examination: Alert and comfortable the patient is able to move around more freely and is interactive Repeat exam does not show any new ominous findings Patient has been able to take oral liquids. The discharge treatment plan includes pain medication and close follow up with the PCP I reviewed the use of the pain medication and its side effects Incidental findings discussed: I discussed the finding on the CT scan with her Questions were invited and answered in layman's terms. I have emphasized my follow-up recommendations and reviewed ED return precautions. I have answered any questions in layman's terms. The patient understands that they will have to arrange for out-patient follow-up for recheck of today's condition. The patient is stable and appropriate for discharge from the ED. This dictation was prepared using e-Tag voice recognition software. Occasional voice recognition errors may occur. When identified, these errors have been corrected. While every attempt is made to correct errors during dictation, errors may still exist. DX & DISP Disposition: Discharge Decision to Admit Date: Nov 19, 2024 Decision to Admit Time: 09:18 Departure Impression: Primary Impression: Thoracic back pain Additional Impression: Subacute compression Fracture of the upper thoracic spine Condition: Stable Scripts Acetaminophen with Codeine (Acetaminophen-Cod #3 Tablet) 300 Mg-30 Mg Tablet 1 TAB PO Q6H PRN for PAIN LEVEL 2 TO 5, #20 TAB 0 Refills Prov: SIA KHANNA MD 11/19/24 Additional Instructions: Use the Tylenol codeine one tablet every 6 hours as needed for severe pain. You may combine it with one regular strength Tylenol. It is sedating. Do not mix with alcohol or other sedating drugs. Do not drive or operate heavy machinery for 6 hours after taking this medication. Use ugup-bgt-oohaxhz creams such as icy hot or Yrn-Pisano for discomfort. Follow up with your family physician in the next 2-3 days. Return to the emergency department for fever or difficulty breathing. For immediate assistance at home dial 911 Referrals: DAMARIS PIZARRO MD (PCP) Time of Disposition: 09:48 SIA KHANNA MD Nov 19, 2024 06:43
[2024-11-19 06:46] LABS: BASOPHILS # (AUTO) 0.05 K/uL (0.00-0.20); BASOPHILS % (AUTO) 0.6 % (0.0-5.0); EOSINOPHILS # (AUTO) 0.08 K/uL (0.00-0.70); EOSINOPHILS % (AUTO) 0.9 % (0.0-8.0); HEMATOCRIT 36.6 % (36-48); IMMATURE GRANULOCYTE ABSOLUTE 0.03 K/uL (0-1); LYMPHOCYTES # (AUTO) 2.5 K/uL (1.0-4.8); LYMPHOCYTES % (AUTO) 28.8 % (21.0-51.0); MEAN CORPUSCULAR HGB CONC 31.4 g/dL (32.0-36.0); MEAN CORPUSCULAR VOLUME 82.6 fL (79-99); MONOCYTES # (AUTO) 0.6 K/uL (0.1-1.0); MONOCYTES % (AUTO) 7.5 % (3.0-13.0); NEUTROPHILS # (AUTO) 5.3 K/uL (1.8-7.7); NEUTROPHILS % (AUTO) 61.9 % (40.0-77.0); PLATELET COUNT (AUTO) 316 K/uL (130-400); RED BLOOD CELL COUNT(AUTO) 4.43 MIL/uL (4.00-5.50); RED CELL DISTRIBUTION WIDTH 14.8 % (11.0-15.5); WHITE BLOOD COUNT (AUTO) 8.6 K/uL (4.8-10.8)
--- NOTE | 2024-11-19 06:48 | EKG ---
[facility] Test Date: 2024-11-19 Test Time: 06:45:58 Pat Name: KERWIN MORRISSEY Department: ED[facility] Room: Gender: F Radiology Specialist: [id number] : 1950 Requested By: SIA KHANNA Order Number: [id number] Reading MD: bA Nam Measurements Intervals [place] Rate: 75 P: 37 AK: 153 QRS: 32 QRSD: 88 T: 57 QT: 388 QTc: 435 Interpretive Statements Sinus rhythm Consider left ventricular hypertrophy Compared to ECG 11/12/2024 14:25:14 ST (T wave) deviation no longer present Myocardial infarct finding no longer present Electronically Signed On 11-19-2024 17:25:49 [employer] by Ab Nam Please click the below link to view image of tracing.
[2024-11-19 06:56] LABS: CREATININE 0.4 mg/dL (0.5-1.0); POTASSIUM 3.6 mmol/L (3.5-5.1)
--- NOTE | 2024-11-19 07:00 | NUR ---
REPORT RECEIVED FROM JOJO CARTER
--- NOTE | 2024-11-19 07:20 | NUR ---
ASSESSMENT: PT AWAKE AND ALERT. WHEN ASKED HOW SHE WAS DOING, SHE STATED THAT SHE STILL HAD SOEM BACK PAIN. I DID INFORM PT THAT THE ED MD WOULD HAVE THE RADIOLOGIST TAKE ANOTHER LOOK AT THE CT SCAN SHE HAD DONE LAST WEEK WHEN SHE INITIALLY HAD HER FALL D/T AN ABNORMAL FINDING BY THE ED MD. PT OTHERWISE DOES NOT APPEART TO BE IN ANY ACUTE DISTRESS AT THIS TIME. PT IS ABLE TO MOVE ALL HER EXTREMITIES AND DENIES DECREASED SENSATION. +CMS DISTALLY. HER DISCOMFORT IS UP HIGH IN HER BACK.
[2024-11-19 08:01] LABS: ERYTHROCYTE SEDIMENTATION RATE 20 MM/HR (0-30)
--- NOTE | 2024-11-19 08:59 | NUR ---
PENDING DISPOSITION BY ED MD
--- NOTE | 2024-11-19 09:09 | NUR ---
ED MADE AWARE OF PT THOUGHTS ON HER DISPOSITION
[2024-11-19] MEDS ORDERED: ACET-2079 PO (09:21)
[2024-11-19] MEDS: dexaMETHasone SOD PHOSPHATE 4 MG/ML 1ML VIAL IM ONE (09:27)
[2024-11-19] MEDS: ketOROlac 30MG VIAL (30MG/ML) IM ONE (09:27)
[2024-11-19 09:34] VITALS: BP 177/84; PULSE 69; RESP 17; TEMP 97.9; O2SAT 100
== END 2024-11-19 10:00 | disposition home or self-care (01) ==
LOC: EDH 05:27
DX: M54.6 Pain in thoracic spine (principal); M48.54XA Collapsed vertebra, not elsewhere classified, thoracic region, initial encounter for fracture; E11.9 Type 2 diabetes mellitus without complications; Z79.02 Long term (current) use of antithrombotics/antiplatelets; Z79.4 Long term (current) use of insulin; Z79.84 Long term (current) use of oral hypoglycemic drugs; Z79.899 Other long term (current) drug therapy
CPT/HCPCS: 99284; 80048; 85025; 85651; 86140; 36415; 96372 ×3; 93005; J1100; J2270; J1885

== ENCOUNTER 2024-11-30 21:24 | Emergency (ER) | payer MEDICARE, OTHER ==
[~2024-11-30] VITALS: Ht 162.6 cm; Wt 53.5 kg
[~2024-11-30 21:24] MED LIST changes: +ACET-2079 PO
[2024-11-30 21:25] VITALS: O2SAT 97
[2024-11-30 21:26] VITALS: BP 184/81; PULSE 91; RESP 16; TEMP 99
--- NOTE | 2024-11-30 22:01 | HMCIMG ---
RIGHT WRIST RADIOGRAPHS - 3 VIEWS INDICATION: Pain COMPARISON: None FINDINGS: AP, lateral, and oblique views. No evidence for acute fracture or subluxation. Scaphoid bone is intact. Ulnar variance is within normal limits. Carpal alignment is well maintained. Arterial wall calcific plaque. IMPRESSION: No evidence for fracture or dislocation.
--- NOTE | 2024-11-30 22:13 | ERN ---
General Chief Complaint: Wrist Pain/Injury Stated Complaint: R WRIST PAIN Time Seen by MD: 21:26 Time Seen by Midlevel: 21:26 Source: patient, EMS History of Present Illness Initial Comments Patient is a 74-year-old female being brought in by EMS following a mechanical ground level fall that occurred prior to arrival. Patient states she accidentally fell and landed with her right hand out stress. She reports pain to her right wrist but denies any other injury at this time. Denies loss of consciousness or head injury. Denies being on any blood thinners. Patient has no other concerns on arrival. Allergies: Coded Allergies: No Known Allergies (Unverified Allergy, Unknown, 07/26/21) Home Meds Active Scripts Acetaminophen with Codeine (Acetaminophen-Cod #3 Tablet) 300 Mg-30 Mg Tablet, 1 TAB PO Q6H PRN for PAIN LEVEL 2 TO 5, #20 TAB 0 Refills Prov:SIA KHANNA MD 11/19/24 Reported Medications Lisinopril (Lisinopril) 10 Mg Tablet, 10 MG PO DAILY, TAB 12/27/21 Oxybutynin Chloride (Oxybutynin Chloride ER) 10 Mg Tab.er.24, 10 MG PO DAILY 12/27/21 Calcium Carb & Cit/Vitamin D3 (Calcium + D3 ER Tablet) 1 Each Tablet.er, 2 EACH PO DAILY, TAB 12/27/21 Clopidogrel Bisulfate (Clopidogrel) 75 Mg Tablet, 75 MG PO DAILY, TAB 12/27/21 Omeprazole (Omeprazole) 20 Mg Capsule.dr, 20 MG PO DAILY, CAP 12/27/21 Pravastatin Sodium (Pravastatin Sodium) 40 Mg Tablet, 40 MG PO HS, TAB 12/27/21 Metformin HCl (Metformin HCl) 500 Mg Tablet, 1000 MG PO BID, TAB 12/27/21 Insulin Lispro (Humalog) 100 Unit/1 Ml Insuln.pen, 6 UNITS SQ DAILY, SYRINGE 12/27/21 Insulin Degludec (Tresiba) 100 Unit/1 Ml Vial, 64 UNIT SQ DAILY, VIAL 12/27/21 Past Medical History Past Medical History: Diabetes-Type II Medical History Other: BREAST CANCER Past Surgical History: Other Surgical History Other: RIGHT LEG Female( History) History: Not Applicable ROS Dictation CONSTITUTIONAL: Negative except for HPI HEAD/FACE: Negative except for HPI EENT: Negative except for HPI RESPIRATORY: Negative except for HPI GASTROINTESTINAL/ABDOMINAL: Negative except for HPI GENITOURINARY: Negative except for HPI MUSCULOSKELETAL: Negative except for HPI INTEGUMENTARY: Negative except for HPI NEUROLOGICAL/PSYCH: Negative except for HPI HEMATOLOGIC/LYMPHATIC: Negative except for HPI All Systems Negative, Except as noted above. 13 point review of systems assessed and all negative except for above. Physical Exam Physical Exam Dictation PHYSICAL EXAM: GENERAL: alert,, awake oriented x 3 HEENT: EOMI, Sclera non icteric, moist mucosa NECK: Supple, no JVD, trachea midline LUNGS: Clear breath sounds bilaterally. No wheezes HEART: Regular rate and rhythm. Normal S1 and S2, without murmurs ABD: Abdomen soft, nontender. Bowel sounds present EXT: Tenderness over the distal ulnar aspect of the right wrist, no swelling, radial pulses intact, full range motion of all five digits of the right hand, sensation intact, normal capillary refill NEURO: Alert and oriented to person, follows commands MDM MDM: Differential diagnosis: Fracture, contusion, dislocation There are no social concerns with this patient. Prescription drug management Prescriptions will include: Tylenol or Motrin Medical management and examination interpretation discussions were had by me with other qualified healthcare professionals as indicated for the patient's care. ED Course Orders Procedure Category Date Status Time Wrist Comp 3+Vws Rt RAD 11/30/24 Resulted 21:27 Vital Signs Date Time Temp Pulse Resp B/P (MAP) Pulse Ox O2 Delivery O2 Flow Rate FiO2 11/30/24 21:26 99.0 91 16 184/81 97 Room Air 0 11/30/24 21:25 99.0 91 16 184/81 97 Room Air* [address] [address] IMAGING REPORT Signed PATIENT: KERWIN MORRISSEY MR#: [id number] : 1950 SEX: F AGE: 74 LOCATION: [facility] ORDER 29 STATUS: REG ER REPORT#: [id number] SERVICE 26 REASON: FALL ORDERING PHYSICIAN: POOJA CARNEY PROCEDURE: WRST 3V RT - WRIST COMP 3+VWS RT RIGHT WRIST RADIOGRAPHS - 3 VIEWS INDICATION: Pain COMPARISON: None FINDINGS: AP, lateral, and oblique views. No evidence for acute fracture or subluxation. Scaphoid bone is intact. Ulnar variance is within normal limits. Carpal alignment is well maintained. Arterial wall calcific plaque. IMPRESSION: No evidence for fracture or dislocation. DICTATED BY: ANATOLY RUBY MD DATE: 11/30/242155 ELECTRONICALLY SIGNED BY: ANATOLY RUBY MD DATE: 11/30/242200 DX & DISP Disposition: Discharge Departure Impression: Primary Impression: Contusion of right wrist Additional Impression: Fall Condition: Stable Additional Instructions: YOUR RIGHT WRIST X-RAY DOES NOT SHOW ANY EVIDENCE OF A FRACTURE OR DISLOCATION. YOU MAY TAKE TYLENOL AND MOTRIN FOR PAIN. FOLLOW UP WITH YOUR DOCTOR IN 2-3 DAYS FOR REPEAT EVALUATION. Referrals: DAMARIS PIZARRO MD (PCP) Time of Disposition: 22:13 I have reviewed the case, and I agree with, Diagnosis and Plan I PERFORMED THE SUBSTANTIVE PORTION OF THE VISIT. I HAVE REVIEWED AND PE RSONALLY MADE AND APPROVE THE MANAGEMENT PLAN THAT IS DOCUMENTED IN THE NOTE BY MYSELF OR THE JOE. I ACKNOWLEDGE FOR RESPONSIBILITY FOR THE PATIENT'S MANAGEMENT PLAN. POOJA CARNEY Nov 30, 2024 22:13
== END 2024-11-30 22:14 | disposition home or self-care (01) ==
LOC: EDH 21:24
DX: S60.211A Contusion of right wrist, initial encounter (principal); E11.9 Type 2 diabetes mellitus without complications; Z79.02 Long term (current) use of antithrombotics/antiplatelets; Z79.4 Long term (current) use of insulin; Z79.84 Long term (current) use of oral hypoglycemic drugs; Z79.899 Other long term (current) drug therapy; Z98.890 Other specified postprocedural states; W18.39XA Other fall on same level, initial encounter; Y93.89 Activity, other specified; Y92.89 Other specified places as the place of occurrence of the external cause; Y99.8 Other external cause status
CPT/HCPCS: 73110; 99283

== ENCOUNTER 2024-12-15 16:49 | Emergency (ER) | payer MEDICARE ==
[~2024-12-15] VITALS: Ht 157.5 cm; Wt 61.2 kg
[~2024-12-15 16:49] MED LIST changes: +CEFD300C3 PO; +LIDO-112 TP
--- NOTE | 2024-12-15 17:35 | HMCIMG ---
Exam: NONCONTRAST CT BRAIN REASON: fall/ hematoma. COMPARISON: None. TECHNIQUE: Images are obtained from vertex to the skull base. The exam was performed without IV contrast. FINDINGS: There are generous ventricles and sulci. There is decreased attenuation in the deep central white matter. These findings are consistent with atrophy. There are no acute appearing focal parenchymal lesions. There is no evidence of mass, intracranial hemorrhage or acute stroke. Posterior fossa and brainstem structures appear unremarkable. There are no abnormal fluid collections. There is a scalp contusion in the right frontal region. There is no evidence of underlying fracture. IMPRESSION: 1. Atrophy, no acute intracranial finding. 2. Right frontal scalp contusion without evidence of fracture. CT was performed with one or more following dose reduction techniques: automated exposure control, adjustment of the mA and kv according to patient's size, or use of a iterative reconstruction technique.
--- NOTE | 2024-12-15 18:32 | ERN ---
ED Note History of Present Illness Stated Complaint: FACIAL INJURY POST TRIP/FALL Chief Complaint: Head, Face, Neck Trauma Time Seen by MD: 16:54 Time Seen by Midlevel: 17:00 Dictation: 74-year-old female with a history of cholesterol, hypertension, diabetes coming in with complaints of a trip and fall hitting her head on the concrete. Patient denies any LOC and denies any blood thinners. Allergies: Coded Allergies: No Known Allergies (Unverified Allergy, Unknown, 07/26/21) Home Meds Active Scripts Lidocaine (Pain Relief Patch) 4 % Adh..patch, 1 EACH TP DAILY for 10 Days, #10 A DH.PATCH 2 Refills Prov:LENKA CLARK MD 12/11/24 Cefdinir (Cefdinir) 300 Mg Capsule, 1 CAP PO BID for 5 Days, #10 CAP 0 Refills Prov:LENKA CLARK MD 12/11/24 Acetaminophen with Codeine (Acetaminophen-Cod #3 Tablet) 300 Mg-30 Mg Tablet, 1 TAB PO Q6H PRN for PAIN LEVEL 2 TO 5, #20 TAB 0 Refills Prov:SIA KHANNA MD 11/19/24 Reported Medications Lisinopril (Lisinopril) 10 Mg Tablet, 10 MG PO DAILY, TAB 12/27/21 Oxybutynin Chloride (Oxybutynin Chloride ER) 10 Mg Tab.er.24, 10 MG PO DAILY 12/27/21 Calcium Carb & Cit/Vitamin D3 (Calcium + D3 ER Tablet) 1 Each Tablet.er, 2 EACH PO DAILY, TAB 12/27/21 Clopidogrel Bisulfate (Clopidogrel) 75 Mg Tablet, 75 MG PO DAILY, TAB 12/27/21 Omeprazole (Omeprazole) 20 Mg Capsule.dr, 20 MG PO DAILY, CAP 12/27/21 Pravastatin Sodium (Pravastatin Sodium) 40 Mg Tablet, 40 MG PO HS, TAB 12/27/21 Metformin HCl (Metformin HCl) 500 Mg Tablet, 1000 MG PO BID, TAB 12/27/21 Insulin Lispro (Humalog) 100 Unit/1 Ml Insuln.pen, 6 UNITS SQ DAILY, SYRINGE 12/27/21 Insulin Degludec (Tresiba) 100 Unit/1 Ml Vial, 64 UNIT SQ DAILY, VIAL 12/27/21 Past Medical History Past Medical History: Diabetes-Type II, Hypertension, Other Additional Past Medical Hx: FALLS, PENDING NH PLACEMENT 12.16.2024 Surgical History: Unknown Surgical History Other: RIGHT LEG Family History: Negative Social History: Negative History: Not Applicable Review of System Dictation Constitutional: Negative for fever,chills, and weight loss Eyes: Negative for injury, pain,redness, and discharge ENT: Negative for injury,pain or swelling Cardiovascular: Negative for chest pain, palpitations, and edema Respiratory: Negative for shortness of breath, cough, and wheezing, Abdomen/GI: Negative for abdominal pain, nausea, vomiting, diarrhea, and constipation Back: Negative for injury and pain : Negative for injury, bleeding and discharge MS/Extremity: Negative for injury and deformity Skin: Negative for rash, and discoloration Neuro: Negative for headache, weakness, numbness, tingling, and seizure Psych: Negative for suicide ideation, homicidal ideation, and hallucinations Review of Systems: was completed Initial Vital Sign VS Vital Signs Date Time Temp Pulse Resp B/P (MAP) Pulse Ox O2 Delivery O2 Flow Rate FiO2 12/15/24 16:52 98.1 93 16 167/93 96 Room Air 0 12/15/24 17:19 21 Physical Exam Dictation General: awake, alert, NAD Head/Face: Normocephalic, atraumatic Eyes: PERRL, EOMI, vision at baseline ENT: oral cavity clear, TMs clear, no signs of infection Neck: Trachea midline, supple, no nuchal rigidity Cardiovascular: RRR, normal S1/S2, No MRGs, no JVD Respiratory: CTAB, no respiratory distress, No rales or wheezes Abdomen: Soft, non-tender, non-distended, normal bowel sounds, no guarding or rebound. Skin: Warm, dry, normal turgor, no rash MS/Extremity: Pulses equal, no cyanosis, neurovascular intact, FROM Neuro: COAx4, GCS 15, strength 5/5, CN 2-12 intact, normal cerebellar exam, normal gait, Psych: Normal behavior, mood, and affect normal Results (Laboratory/Radiology) CT Scan Comment: [address] [place] [id number] IMAGING REPORT Signed PATIENT: KERWIN MORRISSEY MR#: [id number] : 1950 SEX: F AGE: 74 LOCATION: [facility] ORDER 58 STATUS: REG ER REPORT#: [id number] SERVICE 58 REASON: fall/ hematoma ORDERING PHYSICIAN: MARYBETH BEE NP PROCEDURE: HEAD WO - CT HEAD/BRAIN W/O CONTRAST Exam: NONCONTRAST CT BRAIN REASON: fall/ hematoma. COMPARISON: None. TECHNIQUE: Images are obtained from vertex to the skull base. The exam was performed without IV contrast. FINDINGS: There are generous ventricles and sulci. There is decreased attenuation in the deep central white matter. These findings are consistent with atrophy. There are no acute appearing focal parenchymal lesions. There is no evidence of mass, intracranial hemorrhage or acute stroke. Posterior fossa and brainstem structures appear unremarkable. There are no abnormal fluid collections. There is a scalp contusion in the right frontal region. There is no evidence of underlying fracture. IMPRESSION: 1. Atrophy, no acute intracranial finding. 2. Right frontal scalp contusion without evidence of fracture. CT was performed with one or more following dose reduction techniques: automated exposure control, adjustment of the mA and kv according to patient's size, or use of a iterative reconstruction technique. DICTATED BY: FLORIDALMA GUERRA MD DATE: 12/15/241731 ELECTRONICALLY SIGNED BY: FLORIDALMA GUERRA MD DATE: 12/15/241734 ED Course ED Course Orders Procedure Category Date Status Time Ct Head/Brain W/O CT 12/15/24 Resulted Contrast 16:59 Vital Signs Date Time Temp Pulse Resp B/P (MAP) Pulse Ox O2 Delivery O2 Flow Rate FiO2 12/15/24 17:19 98.1 93 16 167/93 96 Room Air* 0 21 12/15/24 16:52 98.1 93 16 167/93 96 Room Air 0 Medical Decision Making MDM MDM: 74-year-old female with a history of cholesterol, hypertension, diabetes coming in with complaints of a trip and fall hitting her head on the concrete. Patient denies any LOC and denies any blood thinners. As per family member at bedside patient has been having altered mental status for the last couple of months, they think it is Alzheimer's but there has not been diagnosed. Patient has an appointment tomorrow at two for placement at a long term. CT scan of the head shows no acute findings. Family will take patient home. Discussed with family symptoms to follow up back in the ER like altered mentation, nausea, vomiting and severe headache. Differential diagnosis: ICH, right scalp hematoma, Rationale: Tests considered and ordered secondary to shared decision making include: Previous outside records reviewed: Old ER visits. Risk of complication and/or morbidity or mortality of patient management: None Medications-Per medication reconciliation Need for hospitalization: Patient does not meet criteria for hospitalization. Need for emergency major/minor surgery: No There are no social concerns with this patient. Prescription drug management Prescriptions will include symptomatic care Patient's prior external medical records from other ER visits were reviewed by me as indicated. Prior testing and results from previous visits were reviewed. Prior tests were taken into account with medical decision making and resource utilization, independent historian/historians were used to obtain complete medical history. I independently interpreted the test that were performed, results were reviewed by me and considered findings on radiology if ordered. Medical management and examination interpretation discussions were had by me with other qualified healthcare professionals as indicated for the patient's care. DX & DISP Disposition: Discharge Departure Impression: Primary Impression: Fall Additional Impression: Hematoma of scalp Condition: Stable Additional Instructions: Please keep your appointment for tomorrow to find placement and long term, report to the ER if the patient develops any severe headaches, nausea, vomiting. Follow up with her PCP as scheduled on . Referrals: DAMARIS PIZARRO MD (PCP) Time of Disposition: 19:05 I have reviewed the case, and I agree with, Diagnosis and Plan MARYBETH BEE NP Dec 15, 2024 18:32
[2024-12-15 19:14] VITALS: BP 142/78; PULSE 88; RESP 16; TEMP 98.1; O2SAT 96
== END 2024-12-15 19:16 | disposition home or self-care (01) ==
LOC: EDH 16:49
DX: S00.03XA Contusion of scalp, initial encounter (principal); E11.9 Type 2 diabetes mellitus without complications; I10 Essential (primary) hypertension; Z79.02 Long term (current) use of antithrombotics/antiplatelets; Z79.4 Long term (current) use of insulin; Z79.84 Long term (current) use of oral hypoglycemic drugs; Z79.899 Other long term (current) drug therapy; W01.0XXA Fall on same level from slipping, tripping and stumbling without subsequent striking against object, initial encounter; Y93.89 Activity, other specified; Y92.89 Other specified places as the place of occurrence of the external cause; Y99.8 Other external cause status
CPT/HCPCS: 70450; 99284

== ENCOUNTER 2024-12-16 12:21 | Inpatient (IN) | payer MEDICARE ==
[~2024-12-16] VITALS: Ht 162.6 cm; Wt 54.0 kg
[2024-12-16 13:34] LABS: APPEARANCE,URINE CLEAR (CLEAR); BILIRUBIN,URINE NEGATIVE (NEGATIVE); COLOR,URINE YELLOW (YELLOW); GLUCOSE, URINE (UA) 200 mg/dL (NEGATIVE); KETONES,URINE 20 mg/dL (NEGATIVE); LEUKOCYTE ESTERASE ,URINE NEGATIVE Leu/uL (NEGATIVE); NITRATE,URINE NEGATIVE (NEGATIVE); OCCULT BLOOD,URINE NEGATIVE (NEGATIVE); PH,URINE 6.5 (5.0-8.0); PROTEIN,URINE 30 mg/dL (NEGATIVE)
[2024-12-16 13:44] LABS: ADD UA MICROSCOPIC YES
[2024-12-16 13:49] LABS: MUCUS,URINE RARE LPF (None Seen); RBC,URINE 0-1 /HPF (0-1); SQUAMOUS EPITHELIAL CELL,UR RARE /HPF (0-2); WBC,URINE 0-1 /HPF (0-1)
[2024-12-16 14:00] LABS: BASOPHILS # (AUTO) 0.04 K/uL (0.00-0.20); BASOPHILS % (AUTO) 0.3 % (0.0-5.0); EOSINOPHILS # (AUTO) 0.01 K/uL (0.00-0.70); EOSINOPHILS % (AUTO) 0.1 % (0.0-8.0); HEMATOCRIT 38.6 % (36-48); IMMATURE GRANULOCYTE ABSOLUTE 0.08 K/uL (0-1); LYMPHOCYTES # (AUTO) 1.7 K/uL (1.0-4.8); LYMPHOCYTES % (AUTO) 11.1 % (21.0-51.0); MEAN CORPUSCULAR HEMOGLOBIN 25.9 pg (27.0-33.0); MEAN CORPUSCULAR HGB CONC 31.3 g/dL (32.0-36.0); MEAN CORPUSCULAR VOLUME 82.5 fL (79-99); MONOCYTES # (AUTO) 1.2 K/uL (0.1-1.0); MONOCYTES % (AUTO) 7.7 % (3.0-13.0); NEUTROPHILS # (AUTO) 12.3 K/uL (1.8-7.7); NEUTROPHILS % (AUTO) 80.3 % (40.0-77.0); PLATELET COUNT (AUTO) 338 K/uL (130-400); RED BLOOD CELL COUNT(AUTO) 4.68 MIL/uL (4.00-5.50); RED CELL DISTRIBUTION WIDTH 14.9 % (11.0-15.5); WHITE BLOOD COUNT (AUTO) 15.3 K/uL (4.8-10.8)
--- NOTE | 2024-12-16 14:02 | HMCIMG ---
CT HEAD/BRAIN W/O CONTRAST HISTORY: Status post fall COMPARISON: None TECHNIQUE: Multiple sequential axial images of the head were obtained from the base of the skull through vertex. Patient was not given contrast through intravenous route. FINDINGS: The ventricles and extraventricular CSF spaces are dilated consistent with cerebral atrophy. Nonspecific white matter changes seen. Right frontal scalp soft tissue swelling/hematoma is seen. There is no midline shift, mass effect or herniation. No acute intracranial bleed is seen. Visualized portion of the paranasal sinuses are grossly within normal limits. There is atherosclerosis. IMPRESSION: 1. No acute intracranial bleed is seen. 2. Atrophy with white matter changes. CT was performed with one or more following dose reduction techniques: automated exposure control, adjustment of the mA and kv according to patient's size, or use of a iterative reconstruction technique.
[2024-12-16 14:13] LABS: CREATININE 0.5 mg/dL (0.5-1.0); POTASSIUM 3.4 mmol/L (3.5-5.1)
--- NOTE | 2024-12-16 14:40 | HMCIMG ---
CHEST 1VW HISTORY: Dizziness COMPARISON: 12/26/2024 FINDINGS: A frontal projection of the chest was obtained. No acute pulmonary infiltrates is seen. The heart is borderline enlarged. Postop changes are seen of right shoulder. No evidence of aortic calcification is seen. Degenerative changes are seen. IMPRESSION: 1. No acute pulmonary infiltrate is seen.
--- NOTE | 2024-12-16 15:04 | NUR ---
TROP 107 ERMD MADE AWARE
--- NOTE | 2024-12-16 15:14 | EKG ---
[facility] Test Date: 2024-12-16 Test Time: 12:45:55 Pat Name: KERWIN MORRISSEY Department: ED Room: 421 Gender: F [employer]: [id number] : 1950 Requested By: MARYBETH BEE Order Number: [id number] Reading MD: Ab Nam Measurements Intervals [place] Rate: 77 P: 52 ID: [id number] QRS: 55 QRSD: 92 T: 58 QT: 421 QTc: 477 Interpretive Statements Sinus rhythm Borderline ST elevation, anterior leads Compared to ECG 12/09/2024 04:46:27 ST (T wave) deviation now present Ventricular premature complex(es) no longer present Electronically Signed On 12-17-2024 17:06:52 DIRECTOR BUILDING by Ab Nam Please click the below link to view image of tracing.
--- NOTE | 2024-12-16 15:32 | HMCIMG ---
CT CERVICAL SPINE W/O CONTRAST HISTORY: Status post fall COMPARISON: None TECHNIQUE: Multiple sequential axial images of the cervical spine were obtained including post processing sagittal and coronal reconstruction images. Patient was not given contrast through intravenous route. FINDINGS: There are degenerative changes with cervical spine spondylosis. There is atherosclerosis. There is straightening of normal lordotic cervical curvature which may be related to muscle spasm or positioning. There is no loss of vertebral height. Evaluation for disc and cord pathology is limited with CT study. No evidence of fracture or dislocation is seen. IMPRESSION: 1. No fracture is seen. DJD. CT was performed with one or more following dose reduction techniques: automated exposure control, adjustment of the mA and kv according to patient's size, or use of a iterative reconstruction technique.
--- NOTE | 2024-12-16 15:33 | HMCIMG ---
CT MAXILLOFACIAL W/O CONTRAST HISTORY: Status post fall COMPARISON: None TECHNIQUE: Multiple sequential high-resolution axial images of the paranasal sinuses were obtained. Postprocessing sagittal and coronal reconstruction images were also obtained. Patient was not given contrast through intravenous route. FINDINGS: Nasal septum is grossly midline. There is no evidence of mucoperiosteal thickening involving the paranasal sinuses. The infundibula are patent bilaterally. No acute displaced fracture is seen. There is no evidence of air-fluid level in the paranasal sinuses. Parapharyngeal fat planes are preserved bilaterally. With dilatation is noted. IMPRESSION: 1. No acute displaced fracture is seen. CT was performed with one or more following dose reduction techniques: automated exposure control, adjustment of the mA and kv according to patient's size, or use of a iterative reconstruction technique.
--- NOTE | 2024-12-16 16:10 | HMCIMG ---
PELVIS 1-2VWS HISTORY: Status post fall COMPARISON: None TECHNIQUE: Frontal projection of the pelvis was obtained. FINDINGS: Bilateral hip joint space is seen. There is no acute displaced fracture or dislocation. Degenerative changes are seen. IMPRESSION: 1. Findings as described above.
--- NOTE | 2024-12-16 16:29 | ERN ---
ED Note History of Present Illness Stated Complaint: MECHANICAL FALL,MULTIPLE COMPLAINTS Chief Complaint: Mechanical Fall Time Seen by MD: 12:28 Time Seen by Midlevel: 12:33 Dictation: 74-year-old female brought in by family member for fall, patient is lives by herself in his morning when they went to go check on her she was on the ground. Patient was also seen yesterday for another fall. According to family members as patient has had multiple falls throughout the last couple of weeks. They are concerned because the patient lives by herself. According to the family member patient was supposed to have an appointment today to see if she qualified for penitentiary but states she found her on the ground decided to bring her in for re-evaluation. Allergies: Coded Allergies: No Known Allergies (Unverified Allergy, Unknown, 07/26/21) Home Meds Active Scripts Levofloxacin (Levaquin 750Mg Tabs) 750 Mg Tablet, 750 MG PO Q24H, #10 TAB Prov:NAKUL CHENG [employer] 12/21/24 Hydralazine HCl (Apresoline) 25 Mg Tab, 25 MG PO BID, #60 TAB Prov:NAKUL CHENG [employer] 12/21/24 Reported Medications Lisinopril (Lisinopril) 10 Mg Tablet, 10 MG PO DAILY, TAB 12/27/21 Oxybutynin Chloride (Oxybutynin Chloride ER) 10 Mg Tab.er.24, 10 MG PO DAILY 12/27/21 Calcium Carb & Cit/Vitamin D3 (Calcium + D3 ER Tablet) 1 Each Tablet.er, 2 EACH PO DAILY, TAB 12/27/21 Clopidogrel Bisulfate (Clopidogrel) 75 Mg Tablet, 75 MG PO DAILY, TAB 12/27/21 Omeprazole (Omeprazole) 20 Mg Capsule.dr, 20 MG PO DAILY, CAP 12/27/21 Pravastatin Sodium (Pravastatin Sodium) 40 Mg Tablet, 40 MG PO HS, TAB 12/27/21 Metformin HCl (Metformin HCl) 500 Mg Tablet, 1000 MG PO BID, TAB 12/27/21 Insulin Lispro (Humalog) 100 Unit/1 Ml Insuln.pen, 6 UNITS SQ DAILY, SYRINGE 12/27/21 Insulin Degludec (Tresiba) 100 Unit/1 Ml Vial, 64 UNIT SQ DAILY, VIAL 12/27/21 Discontinued Scripts Lidocaine (Pain Relief Patch) 4 % Adh..patch, 1 EACH TP DAILY for 10 Days, #10 ADH.PATCH 2 Refills Prov:LENKA CLARK MD 12/11/24 Cefdinir (Cefdinir) 300 Mg Capsule, 1 CAP PO BID for 5 Days, #10 CAP 0 Refills Prov:LENKA CLARK MD 12/11/24 Acetaminophen with Codeine (Acetaminophen-Cod #3 Tablet) 300 Mg-30 Mg Tablet, 1 TAB PO Q6H PRN for PAIN LEVEL 2 TO 5, #20 TAB 0 Refills Prov:SIA KHANNA MD 11/19/24 Past Medical History Past Medical History: Cancer, Hypertension Additional Past Medical Hx: FALLS, PENDING NH PLACEMENT 12.16.2024 Surgical History: Cholecystectomy, Other Surgical History Other: R MASECTOMY, SPINAL SURGERY Family History: Negative Social History: Negative History: Not Applicable Review of System Dictation Constitutional: Negative for fever,chills, and weight loss Eyes: Negative for injury, pain,redness, and discharge ENT: Negative for injury,pain or swelling Cardiovascular: Negative for chest pain, palpitations, and edema Respiratory: Negative for shortness of breath, cough, and wheezing, Abdomen/GI: Negative for abdominal pain, nausea, vomiting, diarrhea, and constipation Back: Negative for injury and pain : Negative for injury, bleeding and discharge MS/Extremity: Negative for injury and deformity Skin: Negative for rash, and discoloration Neuro: Positive for headache, no weakness, no numbness, no tingling, and no seizure Psych: Negative for suicide ideation, homicidal ideation, and hallucinations Review of Systems: was completed Initial Vital Sign VS Vital Signs Date Time Temp Pulse Resp B/P (MAP) Pulse Ox O2 Delivery O2 Flow Rate FiO2 12/16/24 12:32 98.1 74 16 146/68 99 Room Air 0 12/16/24 12:52 21 Physical Exam Dictation General: awake, alert, NAD Head/Face: Normocephalic, patient has hematoma to the right scalp, bruising noted extending from her right upper lid to her right upper forehead Eyes: PERRL, EOMI, vision at baseline ENT: oral cavity clear, TMs clear, no signs of infection Neck: Trachea midline, supple, no nuchal rigidity Cardiovascular: RRR, normal S1/S2, No MRGs, no JVD Respiratory: CTAB, no respiratory distress, No rales or wheezes Abdomen: Soft, non-tender, non-distended, normal bowel sounds, no guarding or rebound. Skin: Warm, dry, normal turgor, no rash MS/Extremity: Pulses equal, no cyanosis, neurovascular intact, FROM Neuro: COAx4, GCS 15, strength 5/5, CN 2-12 intact, normal cerebellar exam, normal gait, Psych: Normal behavior, mood, and affect normal Results (Laboratory/Radiology) Laboratory/Radiology Laboratory Tests Test 12/19/24 16:36 12/19/24 19:23 12/20/24 05:03 12/20/24 06:14 Whole Blood Glucose 217 MG/DL (70-110) H 193 MG/DL (70-110) H 117 MG/DL (70-110) H Bedside Glucose Comment Notified Nurse White Blood Count 7.9 K/uL (4.8-10.8) Red Blood Count 4.01 MIL/uL (4.00-5.50) Hemoglobin 10.3 g/dL (12.0-16.0) L Hematocrit 33.7 % (36-48) L Mean Corpuscular Volume 84.0 fL (79-99) Mean Corpuscular Hemoglobin 25.7 pg (27.0-33.0) L Mean Corpuscular Hemoglobin Concent 30.6 g/dL (32.0-36.0) L Red Cell Distribution Width 15.1 % (11.0-15.5) Platelet Count 324 K/uL (130-400) Mean Platelet Volume 11.0 fL (7.5-10.5) H Immature Granulocyte % (Auto) 0.4 % (0-1) Neutrophils (%) (Auto) 63.7 % (40.0-77.0) Lymphocytes (%) (Auto) 28.0 % (21.0-51.0) Monocytes (%) (Auto) 6.0 % (3.0-13.0) Eosinophils (%) (Auto) 1.3 % (0.0-8.0) Basophils (%) (Auto) 0.6 % (0.0-5.0) Neutrophils # (Auto) 5.0 K/uL (1.8-7.7) Lymphocytes # (Auto) 2.2 K/uL (1.0-4.8) Monocytes # (Auto) 0.5 K/uL (0.1-1.0) Eosinophils # (Auto) 0.10 K/uL (0.00-0.70) Basophils # (Auto) 0.05 K/uL (0.00-0.20) Absolute Immature Granulocyte (auto 0.03 K/uL (0-1) Nucleated Red Blood Cells 0.0 % (0.0-0.19) Sodium Level 142 mmol/L (136-145) Potassium Level 4.2 mmol/L (3.5-5.1) Chloride Level 106 mmol/L (101-111) Carbon Dioxide Level 29 mmol/L (21-32) Blood Urea Nitrogen 8 mg/dL (7-18) Creatinine 0.4 mg/dL (0.5-1.0) L Glomerular Filtration Rate Calc 103 mL/min (>90) Random Glucose 118 mg/dL (70-105) H Total Calcium 8.5 mg/dL (8.5-10.1) Magnesium Level 1.80 mg/dL (1.80-2.40) Total Bilirubin 0.3 mg/dL (0.2-1.0) Aspartate Amino Transf (AST/SGOT) 39 U/L (10-37) H Alanine Aminotransferase (ALT/SGPT) 31 U/L (12-78) Alkaline Phosphatase 180 U/L (50-136) H Total Creatine Kinase 463 U/L (21-232) #*H Total Protein 5.9 g/dL (6.0-8.3) L Albumin 2.6 g/dL (3.5-5.0) L Test 12/20/24 11:08 12/20/24 15:12 12/20/24 19:27 12/21/24 06:35 Whole Blood Glucose 168 MG/DL (70-110) H 207 MG/DL (70-110) H 75 MG/DL (70-110) # 100 MG/DL (70-110) Bedside Glucose Comment Notified Nurse Notified Nurse Test 12/21/24 11:20 12/21/24 15:21 Whole Blood Glucose 166 MG/DL (70-110) #H 103 MG/DL (70-110) Labs Reviewed?: Yes X-RAY Comment: [facility] [id number] [id number] IMAGING REPORT Signed PATIENT: KERWIN MORRISSEY MR#: [id number] : 1950 SEX: F AGE: 74 LOCATION: [facility] ORDER 1432 STATUS: REG ER HOSPITAL REPORT#: [id number] SERVICE 1431 REASON: fall ORDERING PHYSICIAN: MARYBETH BEE NP PROCEDURE: PELVIS - PELVIS 1-2VWS PELVIS 1-2VWS HISTORY: Status post fall COMPARISON: None TECHNIQUE: Frontal projection of the pelvis was obtained. FINDINGS: Bilateral hip joint space is seen. There is no acute displaced fracture or dislocation. Degenerative changes are seen. IMPRESSION: 1. Findings as described above. DICTATED BY: ZEV JOHNSON MD DATE: 12/16/24 1606 ELECTRONICALLY SIGNED BY: ZEV JOHNSON MD DATE: 12/16/[address] [id number] IMAGING REPORT Signed PATIENT: KERWIN MORRISSEY MR#: [id number] : 1950 SEX: F AGE: 74 LOCATION: ED ORDER 1240 STATUS: REG ER HOSPITAL REPORT#: [id number] SERVICE 1239 REASON: dizzines ORDERING PHYSICIAN: MARYBETH BEE NP PROCEDURE: CXR1VW - CHEST 1VW CHEST 1VW HISTORY: Dizziness COMPARISON: 12/26/2024 FINDINGS: A frontal projection of the chest was obtained. No acute pulmonary infiltrates is seen. The heart is borderline enlarged. Postop changes are seen of right shoulder. No evidence of aortic calcification is seen. Degenerative changes are seen. IMPRESSION: 1. No acute pulmonary infiltrate is seen. DICTATED BY: ZEV JOHNSON MD DATE: 12/16/24 1425 ELECTRONICALLY SIGNED BY: ZEV JOHNSON MD DATE: 12/16/[address] Scan Comment: [address] [id number] IMAGING REPORT Signed PATIENT: KERWIN MORRISSEY MR#: [id number] : 1950 SEX: F AGE: 74 LOCATION: [facility] ORDER 31 STATUS: REG ER REPORT#: [id number] SERVICE 143 REASON: fall, hematoma ORDERING PHYSICIAN: MARYBETH BEE NP PROCEDURE: MAXFACI WO - CT MAXILLOFACIAL W/O CONTRAST CT MAXILLOFACIAL W/O CONTRAST HISTORY: Status post fall COMPARISON: None TECHNIQUE: Multiple sequential high-resolution axial images of the paranasal sinuses were obtained. Postprocessing sagittal and coronal reconstruction images were also obtained. Patient was not given contrast through intravenous route. FINDINGS: Nasal septum is grossly midline. There is no evidence of mucoperiosteal thickening involving the paranasal sinuses. The infundibula are patent bilaterally. No acute displaced fracture is seen. There is no evidence of air-fluid level in the paranasal sinuses. Parapharyngeal fat planes are preserved bilaterally. With dilatation is noted. IMPRESSION: 1. No acute displaced fracture is seen. CT was performed with one or more following dose reduction techniques: automated exposure control, adjustment of the mA and kv according to patient's size, or use of a iterative reconstruction technique. DICTATED BY: ZEV JOHNSON MD DATE: 12/16/241529 ELECTRONICALLY SIGNED BY: ZEV JOHNSON MD DATE: 12/16/[address] [address] IMAGING REPORT Signed PATIENT: KERWIN MORRISSEY MR#: [id number] : 1950 SEX: F AGE: 74 LOCATION: ED ORDER 31 STATUS: REG ER [facility] REPORT#: [id number] SERVICE 30 REASON: fall, hematoma ORDERING PHYSICIAN: MARYBETH BEE NP PROCEDURE: C SPIN WO - CT CERVICAL SPINE W/O CONTRAST CT CERVICAL SPINE W/O CONTRAST HISTORY: Status post fall COMPARISON: None TECHNIQUE: Multiple sequential axial images of the cervical spine were obtained including post processing sagittal and coronal reconstruction images. Patient was not given contrast through intravenous route. FINDINGS: There are degenerative changes with cervical spine spondylosis. There is atherosclerosis. There is straightening of normal lordotic cervical curvature which may be related to muscle spasm or positioning. There is no loss of vertebral height. Evaluation for disc and cord pathology is limited with CT study. No evidence of fracture or dislocation is seen. IMPRESSION: 1. No fracture is seen. DJD. CT was performed with one or more following dose reduction techniques: automated exposure control, adjustment of the mA and kv according to patient's size, or use of a iterative reconstruction technique. DICTATED BY: ZEV JOHNSON MD DATE: 12/16/24 1514 ELECTRONICALLY SIGNED BY: ZEV JOHNSON MD DATE: 12/16/[address] [address] IMAGING REPORT Signed PATIENT: KERWIN MORRISSEY MR#: [id number] : 1950 SEX: F AGE: 74 LOCATION: [facility] ORDER 1240 STATUS: REG REPORT#: [id number] SERVICE 1239 REASON: fall/dizziness ORDERING PHYSICIAN: MARYBETH BEE NP PROCEDURE: HEAD WO - CT HEAD/BRAIN W/O CONTRAST CT HEAD/BRAIN W/O CONTRAST HISTORY: Status post fall COMPARISON: None TECHNIQUE: Multiple sequential axial images of the head were obtained from the base of the skull through vertex. Patient was not given contrast through intravenous route. FINDINGS: The ventricles and extraventricular CSF spaces are dilated consistent with cerebral atrophy. Nonspecific white matter changes seen. Right frontal scalp soft tissue swelling/hematoma is seen. There is no midline shift, mass effect or herniation. No acute intracranial bleed is seen. Visualized portion of the paranasal sinuses are grossly within normal limits. There is atherosclerosis. IMPRESSION: 1. No acute intracranial bleed is seen. 2. Atrophy with white matter changes. CT was performed with one or more following dose reduction techniques: automated exposure control, adjustment of the mA and kv according to patient's size, or use of a iterative reconstruction technique. DICTATED BY: ZEV JOHNSON MD DATE: 12/16/24 1357 ELECTRONICALLY SIGNED BY: ZEV JOHNSON MD DATE: 12/16/24 1402 ED Course ED Course Orders Procedure Category Date Status Time Case Management CM 12/19/24 Transmitted Evaluation 13:42 Cbc With Differential LAB 12/20/24 Complete 04:00 Comprehensive LAB 12/20/24 Complete Metabolic Panel 04:00 *Nursing CPOE 12/19/24 Transmitted Communication: 14:48 Hydralazine 25mg Tab PHA 12/19/24 Complete ([id number] Tab 21:00 Creatine Kinase, Total LAB 12/20/24 Complete 04:00 Melatonin (Melatonin) PHA 12/20/24 Complete 00:00 Melatonin (Melatonin) PHA 12/19/24 Complete 23:50 Magnesium LAB 12/20/24 Complete 04:00 Linagliptin PHA 12/20/24 Complete (Tradjenta) 09:00 Levofloxacin 750 PHA 12/20/24 Complete Mg/D5w 150 Ml 09:00 Levofloxacin 750mg PHA 12/20/24 Complete Tab (Levaquin 750mg T 09:00 *General Dc DS 12/20/24 Transmitted Instructions 12:19 *General Dc DS 12/21/24 Transmitted Instructions 15:36 Vital Signs Date Time Temp Pulse Resp B/P (MAP) Pulse Ox O2 Delivery O2 Flow Rate FiO2 12/21/24 16:00 98.1 88 19 134/74 97 Room Air 12/21/24 12:10 99 Room Air* 0 12/21/24 12:00 99.5 100 19 109/58 97 Room Air 12/21/24 08:00 98.2 74 19 146/67 97 Room Air 12/21/24 04:06 98.1 82 18 143/73 97 Room Air 12/20/24 20:28 97.9 88 17 133/70 98 Room Air 12/20/24 19:57 97.9 88 17 133/70 98 Room Air 12/20/24 15:31 98.2 103 20 123/63 99 Room Air 12/20/24 11:04 97.9 85 18 132/76 97 Room Air 12/20/24 08:00 99 Room Air* 0 12/20/24 07:27 98.1 75 18 136/86 98 Room Air 12/20/24 03:21 98.1 72 17 134/68 99 Room Air 12/19/24 20:00 99 Room Air* 0 21 12/19/24 19:44 98.8 85 18 128/63 98 Room Air 12/19/24 15:41 98.6 80 15 139/65 99 Room Air 0.0 12/19/24 13:23 99 Room Air* 0 21 Medical Decision Making MDM MDM: 74-year-old female brought in by family member for fall, patient is lives by herself in his morning when they went to go check on her she was on the ground. Patient was also seen yesterday for another fall. According to family members as patient has had multiple falls throughout the last couple of weeks. They are concerned because the patient lives by herself. According to the family member patient was supposed to have an appointment today to see if she qualified for penitentiary but states she found her on the ground decided to bring her in for re-evaluation.CBC shows leukocytosis of 15, no anemia, no thrombocytopenia. Chemistry shows mild hyponatremia at 1:35 a.m., no kidney injury, mild hyperglycemia at 151. CK is 4233, fluids initiated in the ER, troponin is 107, EKGs did not show any ST elevations or dysrhythmias. Patient was not complaining of any chest pain or chest discomfort. Repeated the CT scan of the head and added a C-spine of the cervical spine, maxillofacial and a pelvic x-ray which are all negative. Patient will be admitted for rhabdomyolysis, elevated troponin, dehydration, and have a case management for placement possibly. Spoke to Dr. Elsa talavera to admit patient. Differential diagnosis: ICH, C-spine injury, maxillofacial injury, dehydration, UTI Rationale: Tests considered and ordered secondary to shared decision making include: labs, ECG and radiology Previous outside records reviewed: Old ER visits. Risk of complication and/or morbidity or mortality of patient management: None Medications-Per medication reconciliation Need for hospitalization: Patient does meet criteria for hospitalization. Need for emergency major/minor surgery: No There are no social concerns with this patient. Prescription drug management Prescriptions will include symptomatic care Patient's prior external medical records from other ER visits were reviewed by me as indicated. Prior testing and results from previous visits were reviewed. Prior tests were taken into account with medical decision making and resource utilization, independent historian/historians were used to obtain complete medical history. I independently interpreted the test that were performed, results were reviewed by me and considered findings on radiology if ordered. Medical management and examination interpretation discussions were had by me with other qualified healthcare professionals as indicated for the patient's care. DX & DISP Disposition: Inpatient Decision to Admit Date: Dec 16, 2024 Decision to Admit Time: 16:25 Departure Impression: Primary Impression: Rhabdomyolysis Additional Impressions: Elevated troponin I level, Frequent falls, Dehydration Condition: Stable Scripts Levofloxacin (Levaquin 750Mg Tabs) 750 Mg Tablet 750 MG PO Q24H, #10 TAB Prov: NAKUL CHENG [employer] 12/21/24 Hydralazine HCl (Apresoline) 25 Mg Tab 25 MG PO BID, #60 TAB Prov: NAKUL CHENG [employer] 12/21/24 Referrals: DAMARIS PIZARRO MD (PCP) I have reviewed the case, and I agree with, Diagnosis and Plan I performed the substantive portion of the visit. I have reviewed and personally made and approve the management plan that is documented in the notes by myself or the JOE. I acknowledge full responsibility for the patient's management plan. MARYBETH BEE NP Dec 16, 2024 16:28 MONICA CARTAGENA MD Dec 22, 2024 13:03
[2024-12-16] MEDS ORDERED: PoTASSium chloRIDE 20MEQ ER 20 MEQ ERTAB PO PRN (16:30)
[2024-12-16] MEDS: cefTRIAXone 1G VIAL IVPB SCH (16:49)
[2024-12-16] MEDS: 0.9%NACL 1000ML 1,000 ML IV SCH (16:50)
[2024-12-16] MEDS: 0.9%NACL 1000ML 1,000 ML IV STA (16:50)
--- NOTE | 2024-12-16 17:04 | HP ---
[facility] HISTORY [facility] PHYSICAL Date of Service: Dec 16, 2024 Time of Service: 16:46 HISTORY OF PRESENT ILLNESS: 74-year-old female with past medical history of diabetes mellitus type history of breast cancer , history of PVD, hypertension, hyperlipidemia who presented to the hospital secondary to fall at home. Patient lives by herself and states today while walking outside she she tripped on her fall and fell on her knees. Patient had presented to the ED yesterday for similar complaints. Patient's history is obtained from patient and from her daughter. Patient at the time tripped and fell and hit her head on the concrete. She came to the ED and underwent a CT head which showed no evidence of intracranial bleed. She was noted to have right frontal scalp contusion without evidence of fracture patient was discharged home for outpatient set up for assisted placement. Patient again fell today which was unwitnessed. She tripped on her foot and fell on her knees. She denied losing any consciousness, chest pain, palpitations, fever, chills, abdominal pain, nausea, denied any dysuria, changes in her bowel movement. She was noted to have bruising on the right orbital area. She states she has not been eating well at home. She has a history of breast cancer and sees oncologist and Angelito. She is unable to recall his name. She does not use walker or cane for ambulation. Daughter was concerned since patient has been living alone and was trying to get outpatient follow up with her assisted for rehab. Secondary to recurrent fall she thereafter came to the hospital further evaluation. Additionally daughter states since last year patient has lost around 60 lb. Patient has noticed decreased appetite. She denies any melena, hematochezia, hematemesis On chart review patient was recently and was discharged on 12/11/2024. During hospitalization patient was ruled out for ACS. Patient for her diabetes has only been taking metformin. On her discharge summary she was noted to be on Tresiba 64 units, Humalog 6 units. Per patient she has not been taking insulin for more than a month. Her A1c during hospitalization was noted to be 7.8. She is currently only taking metformin. Labs in the ED were notable for white count of 15.3, hemoglobin was 12.1, platelet count was 338 K, sodium was 135, potassium was 3.4, creatinine was 0.5 Her troponin was 107, total CK was 4233 Patient is temperature on presentation was 98.1, heart rate was 74, blood pressure was 146/88, patient was saturating 99% on room air The patient underwent a CT head which was negative, cervical CT showed no fracture, CT maxillofacial showed no displaced fracture, patient underwent bilateral pelvis x-ray which was negative REVIEW OF SYSTEMS CONSTITUTIONAL: Denies fevers, chills, or night sweats. Positive for weight loss, loss of appetite NEUROLOGICAL: Denies headache, amaurosis fugax, motor weakness, sensory deficit, vertigo/spinning sensation, gait abnormalities, or tremors. ENT: No hearing loss, otalgia, otorrhea, rhinitis, rhinorrhea, hoarseness, or sore throat. CARDIOVASCULAR: Denies any exertional angina, dyspnea on exertion, orthopnea, paroxysmal nocturnal dyspnea, palpitations, life-threatening arrhythmias, claudication. PULMONARY: Denies any shortness of breath, cough, phlegm/sputum, hemoptysis, pleuritic chest pain. GASTROINTESTINAL: Denies any type of dysphagia to either liquids or solids. Denies nausea, vomiting, pyrosis, early satiety, abdominal pain, diarrhea, constipation, or changes in stool consistency or caliber. Denies coffee-ground emesis, hematemesis, hematochezia, or melanotic stools. GENITOURINARY: Denies frequency, urgency, nocturia, hematuria or incontinence (Storage/Irritative symptoms.) Low urinary stream, straining to void, urinary intermittency or hesitancy, splitting of the voiding stream, terminal dribbling. ENDOCRINOLOGIC: Denies polyuria, polydipsia, polyphagia or heat/cold intolerances. HEMATOLOGIC: Denies thrombophilia/previous clots, or coagulopathy/bleeding disorders. ONCOLOGIC: Denies personal history of malignancy. DERMATOLOGIC: Denies rashes or pruritus. PSYCHIATRIC: Denies any suicidal or homicidal ideation. Denies hallucinations. Musculoskeletal: positive for pain in knees bilaterally PAST MEDICAL HISTORY: Diabetes mellitus type 2, history breast cancer, history of PVD, hypertension, hyperlipidemia PAST SURGICAL HISTORY: History of peripheral intervention, right shoulder surgery, spine surgery, cataract surgery, tooth extraction PAST SOCIAL HISTORY: Currently denied any smoking, alcohol, drug use FAMILY HISTORY: Denied any pertinent family history Coded Allergies: No Known Allergies (Unverified Allergy, Unknown, 07/26/21) PHYSICAL EXAM GENERAL APPEARANCE: The patient is awake, alert, and oriented, in no acute cardiopulmonary distress. Patient appears very debilitated NEUROLOGICAL: Cranial nerves II-XII grossly intact. Motor is 5/5 in bilateral upper and lower extremities proximal to distal. No sensory deficits. HEENT: Face is symmetric. Pupils are equal and reactive. Extraocular movements are intact. He has bruising noted in the right orbital area of the face NECK: Supple. No JVD. No thyromegaly. No submental, submandibular, pre- /postauricular, occipital or supraclavicular lymphadenopathy. CHEST: Normal chest expansion. No Telemetry. LUNGS: Absence of any rales, rhonchi or any wheezing. CARDIOVASCULAR: Regular. S1 and S2 normal. No appreciable rubs, murmurs or gallops. ABDOMEN: Soft, nontender, and nondistended. There is no rebound, voluntary guarding, or rigidity. : Deferred. No Choi. EXTREMITIES: Non-edematous and not cyanotic. No clubbing. Good capillary refill. She has bruising noted in the knees bilateral SKIN: No skin breakdown. Vital Sign (Last 24 Hours) 12/16/24 12:52 Temp 98.1 Pulse 74 Resp 16 B/P (MAP) 146/68 Pulse Ox 99 O2 Delivery Room Air* O2 Flow Rate 0 FiO2 21 LABS: Laboratory: Test 12/16/24 13:49 12/16/24 13:19 Range/Units White Blood Count 15.3 H 4.8-10.8 K/uL Red Blood Count 4.68 4.00-5.50 MIL/uL Hemoglobin 12.1 12.0-16.0 g/dL Hematocrit 38.6 36-48 % Mean Corpuscular Volume 82.5 79-99 fL Mean Corpuscular Hemoglobin 25.9 L 27.0-33.0 pg Mean Corpuscular Hemoglobin Concent 31.3 L 32.0-36.0 g/dL Red Cell Distribution Width 14.9 11.0-15.5 % Platelet Count 338 130-400 K/uL Mean Platelet Volume 10.9 H 7.5-10.5 fL Immature Granulocyte % (Auto) 0.5 0-1 % Neutrophils (%) (Auto) 80.3 H 40.0-77.0 % Lymphocytes (%) (Auto) 11.1 L 21.0-51.0 % Monocytes (%) (Auto) 7.7 3.0-13.0 % Eosinophils (%) (Auto) 0.1 0.0-8.0 % Basophils (%) (Auto) 0.3 0.0-5.0 % Neutrophils # (Auto) 12.3 H 1.8-7.7 K/uL Lymphocytes # (Auto) 1.7 1.0-4.8 K/uL Monocytes # (Auto) 1.2 H 0.1-1.0 K/uL Eosinophils # (Auto) 0.01 0.00-0.70 K/uL Basophils # (Auto) 0.04 0.00-0.20 K/uL Absolute Immature Granulocyte (auto 0.08 0-1 K/uL Nucleated Red Blood Cells 0.0 0.0-0.19 % Sodium Level 135 L 136-145 mmol/L Potassium Level 3.4 L 3.5-5.1 mmol/L Chloride Level 95 L 101-111 mmol/L Carbon Dioxide Level 32 21-32 mmol/L Blood Urea Nitrogen 12 7-18 mg/dL Creatinine 0.5 0.5-1.0 mg/dL Glomerular Filtration Rate Calc 97 >90 mL/min Random Glucose 151 H 70-105 mg/dL Total Calcium 9.7 8.5-10.1 mg/dL Total Creatine Kinase 4233 #*H 21-232 U/L Troponin I High Sensitivity 107 *H 4-50 ng/L Urine Color YELLOW YELLOW Urine Appearance CLEAR CLEAR Urine pH 6.5 5.0-8.0 Urine Specific Premium 1.025 1.001-1.031 Urine Protein 30 H NEGATIVE mg/dL Urine Glucose (UA) 200 H NEGATIVE mg/dL Urine Ketones 20 H NEGATIVE mg/dL Urine Occult Blood NEGATIVE NEGATIVE Urine Nitrate NEGATIVE NEGATIVE Urine Bilirubin NEGATIVE NEGATIVE mg/dL Urine Urobilinogen 2.0 H 0.2-1.0 mg/dL Urine Leukocyte Esterase NEGATIVE NEGATIVE Lynnette/uL Urine RBC 0-1 0-1 /HPF Urine WBC 0-1 0-1 /HPF Urine Squamous Epithelial Cells RARE 0-2 /HPF Urine Bacteria None None Seen /HPF Current Medications Medications (Trade) Dose Ordered Sig/Jessica Route PRN Reason Start Time Stop Time Status Last Admin Dose Admin Acetaminophen (TYLenol 500MG TAB) 500 mg Q6H PRN PO MILD PAIN (1-3) 12/16/24 17:00 01/15/25 16:59 Ceftriaxone Sodium (ROCEphine 1G INJ) 1 gm Q24H IVPB 12/16/24 16:30 12/26/24 16:29 Famotidine (Pepcid 20mg Vial) 20 mg BID IV 12/16/24 21:00 01/15/25 20:59 Magnesium Sulfate 50 ml @ 0 mls/hr PROTOCOL PRN IV hypomagnesemia 12/16/24 16:30 01/15/25 16:29 Potassium Chloride 100 ml @ 100 mls/hr AD PRN IV POTASSIUM PROTOCOL 12/16/24 16:30 01/15/25 16:29 Potassium Chloride (K-Dur/Klor-Con 20meq) 20 meq AD PRN PO POTASSIUM PROTOCOL 12/16/24 16:30 01/15/25 16:29 Potassium Chloride (KCl 10% Elixir 20meq/15ml) 20 meq AD PRN PO POTASSIUM PROTOCOL 12/16/24 16:30 01/15/25 16:29 Sodium Chloride 1,000 ml @ 125 mls/hr Q8H IV 12/16/24 16:30 01/15/25 16:29 Sodium Chloride 1,000 ml @ 1,000 mls/hr Q1H STAT IV 12/16/24 15:31 12/16/24 16:30 DC DIAGNOSTICS / RADIOLOGY: [ ] ASSESSMENT: Mechanical fall POA Rhabdomyolysis POA Dehydration Debility Right facial orbital ecchymosis secondary to fall Mild troponin elevation likely in setting of rhabdomyolysis History of diabetes mellitus type 2 Unintentional weight loss Breast cancer Hypertension Hyperlipidemia History of PVD Hypokalemia PLAN: - patient to be admitted to medical-surgical unit with telemetry -in reference to rhabdomyolysis. The patient will be started on NS at 125 cc an hour. We will titrate up fluids based on patient's volume status. Additionally check for COVID and flu. We will request PT evaluation for consideration of rehab -in reference to leukocytosis. This is in setting of dehydration and rhabdomyolysis. We will obtain a blood culture. We will also start patient on Rocephin empirically. Stop antibiotics if cultures remain negative -in reference to troponin elevation. Patient currently denies any chest pain. We will trend troponins q.6 hours. Also obtain an echocardiogram. -check TSH, A1c, procalcitonin, CRP -obtain home medications which will be reconciled once available. Patient is not on insulin at home. We will request patient's home medications to be accurately reconciled. We will check her A1c to assess medication requirement. We closely monitor need for insulin to reduce risk of hypoglycemia since patient has not been eating very well at home and has had associated weight loss -further orders per hospitalization course. Advanced Care Planning Which of the following were discussed: Hospice care: Yes __ No _x_ Therapeutic options: Yes __ No __ Advance directives: Yes __ No __ Other discussions: Discussed with who?: Pt is full code (Patient, family or surrogates) Voluntary nature of this service was explained to the patient? Yes _x_ No __ Amount of time spent: 25 minutes AUDREY Hassan MD, MD Dec 16, 2024 17:03
[2024-12-16 17:14] LABS: HEMOGLOBIN A1C 7.7 % (4.0-6.0)
--- NOTE | 2024-12-16 17:58 | HMCIMG ---
CT ABDOMEN/PELVIS W/O CONTRAST HISTORY: Abdominal pain COMPARISON: 08/29/2012 TECHNIQUE: Multiple sequential axial images of the abdomen and pelvis were obtained from the dome of the diaphragm through symphysis pubis. Patient was not given contrast through intravenous route. Oral contrast was not given. FINDINGS: No pleural effusion is seen bilaterally. There is no evidence of parenchymal disease or pulmonary nodule of the visualized lower lungs. Degenerative changes of the thoracolumbar spine are present. The heart is not enlarged. Moderate size hiatal hernia is seen. Post cholecystectomy changes are seen. The liver, spleen, adrenal glands and pancreas are unremarkable. There is no evidence of hydronephrosis bilaterally. No evidence of renal stone is seen. Fecal material is seen in the colon. There are normal size retroperitoneal and mesenteric lymph nodes. No ascites is seen. Atherosclerotic changes are present. Uterus is enlarged suggestive of fibroid uterus. There is diverticulosis. Pelvic sidewalls are symmetric bilaterally. Bladder is well distended without wall thickening. IMPRESSION: 1. Diverticulosis. Large amount of fecal material is seen in the colon. CT was performed with one or more following dose reduction techniques: automated exposure control, adjustment of the mA and kv according to patient's size, or use of a iterative reconstruction technique.
[2024-12-16 18:11] LABS: INR 1.02 (0.85-1.15); PROTHROMBIN TIME 11.4 SEC (9.6-11.6)
[2024-12-16 18:13] LABS: PARTIAL THROMBOPLASTIN TIME 28.5 SEC (26.3-35.5)
--- NOTE | 2024-12-16 19:14 | HMCIMG ---
KNEE 2VW BILATERAL REASON: Fall, knee bruising, assess for fracture . COMPARISON: None TECHNIQUE: 4 images of bilateral knees were obtained. FINDINGS: Degenerative changes are seen. There is no acute displaced fracture or dislocation. IMPRESSION: Findings as described above.
[2024-12-16 19:38] LABS: THYROID STIMULATING HORMONE 0.53 uIU/mL (0.36-3.74)
[2024-12-16 20:00] VITALS: BP 143/68; PULSE 85; RESP 16; TEMP 98.5
[2024-12-16 20:05] LABS: INFLUENZA TYPE A Negative For Type A (NEGATIVE); INFLUENZA TYPE B Negative For Type B (NEGATIVE); SARS-CoV-2, RNA, NAAT NEGATIVE SARS CoV-2 (NEGATIVE)
[2024-12-16] MEDS: INSULIN humuLIN R 100 UNIT/ML 3ML SQ SCH (20:25)
[2024-12-16] MEDS: FAMOTIDINE 20MG VIAL IV SCH (20:25)
[2024-12-16 21:00] VITALS: O2SAT 100
--- NOTE | 2024-12-16 21:46 | NUR ---
Report given to nurse Dominguez.
[2024-12-16 22:15] VITALS: BP 151/74; PULSE 79; RESP 18; TEMP 98.7
[2024-12-16 23:00] VITALS: O2SAT 99
[2024-12-17] MEDS: acetaMINOPHEN 500 MG TABLET PO PRN (02:50)
[2024-12-17 04:06] VITALS: BP 119/58; PULSE 81; RESP 18; TEMP 98.6
[2024-12-17 05:21] LABS: BASOPHILS # (AUTO) 0.02 K/uL (0.00-0.20); BASOPHILS % (AUTO) 0.2 % (0.0-5.0); EOSINOPHILS # (AUTO) 0.01 K/uL (0.00-0.70); EOSINOPHILS % (AUTO) 0.1 % (0.0-8.0); IMMATURE GRANULOCYTE ABSOLUTE 0.04 K/uL (0-1); LYMPHOCYTES # (AUTO) 1.6 K/uL (1.0-4.8); LYMPHOCYTES % (AUTO) 14.6 % (21.0-51.0); MEAN CORPUSCULAR HGB CONC 31.8 g/dL (32.0-36.0); MEAN CORPUSCULAR VOLUME 81.7 fL (79-99); MONOCYTES # (AUTO) 0.9 K/uL (0.1-1.0); MONOCYTES % (AUTO) 7.6 % (3.0-13.0); NEUTROPHILS # (AUTO) 8.7 K/uL (1.8-7.7); NEUTROPHILS % (AUTO) 77.1 % (40.0-77.0); PLATELET COUNT (AUTO) 324 K/uL (130-400); RED BLOOD CELL COUNT(AUTO) 4.04 MIL/uL (4.00-5.50); RED CELL DISTRIBUTION WIDTH 14.9 % (11.0-15.5); WHITE BLOOD COUNT (AUTO) 11.2 K/uL (4.8-10.8)
[2024-12-17 05:27] LABS: CREATININE 0.6 mg/dL (0.5-1.0); POTASSIUM 3.3 mmol/L (3.5-5.1)
[2024-12-17 05:30] LABS: ALBUMIN 2.9 g/dL (3.5-5.0); BILIRUBIN,TOTAL 0.6 mg/dL (0.2-1.0); TOTAL PROTEIN, SERUM 6.6 g/dL (6.0-8.3)
[2024-12-17 07:31] VITALS: BP 121/62; PULSE 75; RESP 18
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
[2024-12-17] MEDS ORDERED: oxyBUTYnin 5 MG TAB.SR.24H PO SCH (09:00)
[2024-12-17] MEDS: (Calcium Carb & Cit/Vitamin D3 (Calcium + D3 ER Tablet) PO SCH (09:00)
[2024-12-17] MEDS ORDERED: INSULIN GLARgine 100 UNITS/ML 10 ML VIAL SQ SCH (09:00)
[2024-12-17] MEDS ORDERED: INSULIN LISpro 100 UNIT/ML 3ML SQ SCH (09:00)
--- NOTE | 2024-12-17 10:34 | PN ---
[facility] PROGRESS NOTE Date of Service: Dec 17, 2024 Time of Service: 10:[address] Logan SUBJECTIVE: [ 12/16/24 74-year-old female with past medical history of diabetes mellitus type history of breast cancer , history of PVD, hypertension, hyperlipidemia who presented to the hospital secondary to fall at home. Patient lives by herself and states today while walking outside she she tripped on her fall and fell on her knees. Patient had presented to the ED yesterday for similar complaints. Patient's history is obtained from patient and from her daughter. Patient at the time tripped and fell and hit her head on the concrete. She came to the ED and underwent a CT head which showed no evidence of intracranial bleed. She was noted to have right frontal scalp contusion without evidence of fracture patient was discharged home for outpatient set up for mcc placement. Patient again fell today which was unwitnessed. She tripped on her foot and fell on her knees. She denied losing any consciousness, chest pain, palpitations, fever, chills, abdominal pain, nausea, denied any dysuria, changes in her bowel movement. She was noted to have bruising on the right orbital area. She states she has not been eating well at home. She has a history of breast cancer and sees oncologist and [facility]. She is unable to recall his name. She does not use walker or cane for ambulation. Daughter was concerned since patient has been living alone and was trying to get outpatient follow up with her mcc for rehab. Secondary to recurrent fall she thereafter came to the hospital further evaluation. Additionally daughter states since las t year patient has lost around 60 lb. Patient has noticed decreased appetite. She denies any melena, hematochezia, hematemesis On chart review patient was recently and was discharged on 12/11/2024. During hospitalization patient was ruled out for ACS. Patient for her diabetes has only been taking metformin. On her discharge summary she was noted to be on Tresiba 64 units, Humalog 6 units. Per patient she has not been taking insulin for more than a month. Her A1c during hospitalization was noted to be 7.8. She is currently only taking metformin. Labs in the ED were notable for white count of 15.3, hemoglobin was 12.1, platel et count was 338 K, sodium was 135, potassium was 3.4, creatinine was 0.5 Her troponin was 107, total CK was 4233 Patient is temperature on presentation was 98.1, heart rate was 74, blood pressure was 146/88, patient was saturating 99% on room air The patient underwent a CT head which was negative, cervical CT showed no fracture, CT maxillofacial showed no displaced fracture, patient underwent bilateral pelvis x-ray which was negative 12/17/24 patient was seen by nurse practitioner and physician during rounding in room 421 comfortably lying in bed. WBC is trending down today is 11.2. Patient continues to be on Rocephi meantime. CK dropped from 4233 to 2622. Patient continues to be on normal saline at 125 mL/hour troponin is trending down yesterday was88 today 67. Case management was consulted for sniff. 2D echo still pending. We will continue to monitor patient in the meantime. A.m. labs ] REVIEW OF SYSTEMS CONSTITUTIONAL: Denies fevers, chills, or night sweats. Positive for weight loss, loss of appetite NEUROLOGICAL: Denies headache, amaurosis fugax, motor weakness, sensory deficit, vertigo/spinning sensation, gait abnormalities, or tremors. ENT: No hearing loss, otalgia, otorrhea, rhinitis, rhinorrhea, hoarseness, or sore throat. CARDIOVASCULAR: Denies any exertional angina, dyspnea on exertion, orthopnea, paroxysmal nocturnal dyspnea, palpitations, life-threatening arrhythmias, claudication. PULMONARY: Denies any shortness of breath, cough, phlegm/sputum, hemoptysis, pleuritic chest pain. GASTROINTESTINAL: Denies any type of dysphagia to either liquids or solids. Denies nausea, vomiting, pyrosis, early satiety, abdominal pain, diarrhea, constipation, or changes in stool consistency or caliber. Denies coffee-ground emesis, hematemesis, hematochezia, or melanotic stools. GENITOURINARY: Denies frequency, urgency, nocturia, hematuria or incontinence (Storage/Irritative symptoms.) Low urinary stream, straining to void, urinary intermittency or hesitancy, splitting of the voiding stream, terminal dribbling. ENDOCRINOLOGIC: Denies polyuria, polydipsia, polyphagia or heat/cold intolerances. HEMATOLOGIC: Denies thrombophilia/previous clots, or coagulopathy/bleeding disorders. ONCOLOGIC: Denies personal history of malignancy. DERMATOLOGIC: Denies rashes or pruritus. PSYCHIATRIC: Denies any suicidal or homicidal ideation. Denies hallucinations. Musculoskeletal: positive for pain in knees bilaterally PHYSICAL EXAM GENERAL APPEARANCE: The patient is awake, alert, and oriented, in no acute cardiopulmonary distress. Patient appears very debilitated NEUROLOGICAL: Cranial nerves II-XII grossly intact. Motor is 5/5 in bilateral upper and lower extremities proximal to distal. No sensory deficits. HEENT: Face is symmetric. Pupils are equal and reactive. Extraocular movements are intact. He has bruising noted in the right orbital area of the face NECK: Supple. No JVD. No thyromegaly. No submental, submandibular, pre- /postauricular, occipital or supraclavicular lymphadenopathy. CHEST: Normal chest expansion. No Telemetry. LUNGS: Absence of any rales, rhonchi or any wheezing. CARDIOVASCULAR: Regular. S1 and S2 normal. No appreciable rubs, murmurs or gallops. ABDOMEN: Soft, nontender, and nondistended. There is no rebound, voluntary guarding, or rigidity. : Deferred. No Choi. EXTREMITIES: Non-edematous and not cyanotic. No clubbing. Good capillary refill. She has bruising noted in the knees bilateral SKIN: No skin breakdown. Vital Signs (last 8hr) Date Time Temp Pulse Resp B/P (MAP) Pulse Ox O2 Delivery O2 Flow Rate FiO2 12/17/24 07:31 75 18 121/62 98 Room Air 12/17/24 04:06 98.6 81 18 119/58 98 Room Air 21 LABS: Laboratory: Test 12/17/24 05:04 12/17/24 05:02 12/17/24 00:31 12/16/24 18:45 Range/Units White Blood Count 11.2 #H 4.8-10.8 K/uL Red Blood Count 4.04 4.00-5.50 MIL/uL Hemoglobin 10.5 L 12.0-16.0 g/dL Hematocrit 33.0 L 36-48 % Mean Corpuscular Volume 81.7 79-99 fL Mean Corpuscular Hemoglobin 26.0 L 27.0-33.0 pg Mean Corpuscular Hemoglobin Concent 31.8 L 32.0-36.0 g/dL Red Cell Distribution Width 14.9 11.0-15.5 % Platelet Count 324 130-400 K/uL Mean Platelet Volume 11.4 H 7.5-10.5 fL Immature Granulocyte % (Auto) 0.4 0-1 % Neutrophils (%) (Auto) 77.1 H 40.0-77.0 % Lymphocytes (%) (Auto) 14.6 L 21.0-51.0 % Monocytes (%) (Auto) 7.6 3.0-13.0 % Eosinophils (%) (Auto) 0.1 0.0-8.0 % Basophils (%) (Auto) 0.2 0.0-5.0 % Neutrophils # (Auto) 8.7 H 1.8-7.7 K/uL Lymphocytes # (Auto) 1.6 1.0-4.8 K/uL Monocytes # (Auto) 0.9 0.1-1.0 K/uL Eosinophils # (Auto) 0.01 0.00-0.70 K/uL Basophils # (Auto) 0.02 0.00-0.20 K/uL Absolute Immature Granulocyte (auto 0.04 0-1 K/uL Nucleated Red Blood Cells 0.0 0.0-0.19 % Sodium Level 135 L 136-145 mmol/L Potassium Level 3.3 L 3.5-5.1 mmol/L Chloride Level 99 L 101-111 mmol/L Carbon Dioxide Level 28 21-32 mmol/L Blood Urea Nitrogen 13 7-18 mg/dL Creatinine 0.6 0.5-1.0 mg/dL Glomerular Filtration Rate Calc 93 >90 mL/min Random Glucose 161 H 70-105 mg/dL Total Calcium 8.6 8.5-10.1 mg/dL Total Bilirubin 0.6 0.2-1.0 mg/dL Aspartate Amino Transf (AST/SGOT) 91 H 10-37 U/L Alanine Aminotransferase (ALT/SGPT) 31 12-78 U/L Alkaline Phosphatase 180 H 50-136 U/L Total Creatine Kinase 2622 #*H 21-232 U/L Total Protein 6.6 6.0-8.3 g/dL Albumin 2.9 L 3.5-5.0 g/dL Whole Blood Glucose 161 H 70-110 MG/DL Troponin I High Sensitivity 67 *H 4-50 ng/L Influenza Type A Antigen Negative For Type A NEGATIVE Influenza Type B Antigen Negative For Type B NEGATIVE SARS-CoV-2, RNA, NAAT NEGATIVE SARS CoV-2 NEGATIVE Test 12/16/24 17:50 12/16/24 13:49 12/16/24 13:19 Range/Units Prothrombin Time 11.4 9.6-11.6 SEC Prothromb Time International Ratio 1.02 0.85-1.15 Activated Partial Thromboplast Time 28.5 26.3-35.5 SEC Hemoglobin A1c 7.7 H 4.0-6.0 % Estimated Average Glucose (eAG) 174 H 70-126 mg/dL C-Reactive Protein, Quantitative 49.70 H 0.5-3.0 mg/L Procalcitonin 0.73 H 0.05-0.5 ng/mL Thyroid Stimulating Hormone (TSH) 0.53 0.36-3.74 uIU/mL Urine Color YELLOW YELLOW Urine Appearance CLEAR CLEAR Urine pH 6.5 5.0-8.0 Urine Specific [place] 1.025 1.001-1.031 Urine Protein 30 H NEGATIVE mg/dL Urine Glucose (UA) 200 H NEGATIVE mg/dL Urine Ketones 20 H NEGATIVE mg/dL Urine Occult Blood NEGATIVE NEGATIVE Urine Nitrate NEGATIVE NEGATIVE Urine Bilirubin NEGATIVE NEGATIVE mg/dL Urine Urobilinogen 2.0 H 0.2-1.0 mg/dL Urine Leukocyte Esterase NEGATIVE NEGATIVE Lynnette/uL Urine RBC 0-1 0-1 /HPF Urine WBC 0-1 0-1 /HPF Urine Squamous Epithelial Cells RARE 0-2 /HPF Urine Bacteria None None Seen /HPF Current Medications Medications (Trade) Dose Ordered Sig/Jessica Route PRN Reason Start Time Stop Time Status Last Admin Dose Admin Acetaminophen (TYLenol 500MG TAB) 500 mg Q6H PRN PO MILD PAIN (1-3) 12/16/24 17:00 01/15/25 16:59 12/17/24 02:50 500 MG Atorvastatin Calcium (LIPItor 10MG) 10 mg HS PO 12/17/24 21:00 12/17/24 07:54 DC Ceftriaxone Sodium (ROCEphine 1G INJ) 1 gm Q24H IVPB 12/16/24 16:30 12/26/24 16:29 12/16/24 16:49 1 GM Famotidine (Pepcid 20mg Vial) 20 mg BID IV 12/16/24 21:00 12/17/24 06:56 DC 12/16/24 20:25 20 MG Home Med (Home Medication) (Calcium Carb & Cit/ Vitamin... DAILY PO 12/17/24 09:00 01/16/25 08:59 Insulin Glargine (LANtus 100 UNITS/ML 10 ML VIAL) 64 units DAILY SQ 12/17/24 09:00 12/17/24 07:47 DC Insulin Human Lispro (HumaLOG LISpro 100 UNIT/ML 3ML) 6 unit DAILY SQ 12/17/24 09:00 12/17/24 07:47 DC Insulin Human Regular (humuLIN R 100 UNIT/ML 3ML) INSULIN SLIDING SCAL... ACHS SQ 12/16/24 21:00 01/15/25 20:59 Lisinopril (Prinivil 10mg) 10 mg DAILY PO 12/17/24 09:00 01/16/25 08:59 Magnesium Sulfate 50 ml @ 0 mls/hr PROTOCOL PRN IV hypomagnesemia 12/16/24 16:30 01/15/25 16:29 Oxybutynin Chloride (ditROPAN XL) 10 mg DAILY PO 12/17/24 09:00 12/17/24 07:54 DC Pantoprazole Sodium (PROTonix 40MG TAB) 40 mg DAILY PO 12/17/24 09:00 01/16/25 08:59 Potassium Chloride 100 ml @ 100 mls/hr AD PRN IV POTASSIUM PROTOCOL 12/16/24 16:30 01/15/25 16:29 Potassium Chloride (K-Dur/Klor-Con 20meq) 20 meq AD PRN PO POTASSIUM PROTOCOL 12/16/24 16:30 01/15/25 16:29 Potassium Chloride (KCl 10% Elixir 20meq/15ml) 20 meq AD PRN PO POTASSIUM PROTOCOL 12/16/24 16:30 01/15/25 16:29 Sodium Chloride 1,000 ml @ 125 mls/hr Q8H IV 12/16/24 16:30 01/15/25 16:29 12/16/24 16:50 125 MLS/HR Sodium Chloride 1,000 ml @ 1,000 mls/hr Q1H STAT IV 12/16/24 15:31 12/16/24 16:30 DC 12/16/24 16:50 1,000 MLS/HR DIAGNOSTICS / RADIOLOGY: [ ] ASSESSMENT: Mechanical fall POA Rhabdomyolysis POA Acute Dehydration Acute Debility due to above Right facial orbital ecchymosis secondary to fall Mild troponin elevation likely in setting of rhabdomyolysis History of diabetes mellitus type 2 Unintentional weight loss Breast cancer Hypertension Hyperlipidemia History of PVD Hypokalemia PLAN: - patient to be admitted to medical-surgical unit with telemetry -in reference to rhabdomyolysis. The patient will be started on NS at 125 cc an hour. We will titrate up fluids based on patient's volume status. We will request PT evaluation for consideration of rehab -in reference to leukocytosis. This is in setting of dehydration and rhabdomyolysis. We will obtain a blood culture. We will also start patient on Rocephin empirically. Stop antibiotics if cultures remain negative -in reference to troponin elevation. Patient currently denies any chest pain. We will trend troponins q.6 hours. Also obtain an echocardiogram. -check TSH, A1c, procalcitonin, CRP -obtain home medications which will be reconciled once available. Patient is not on insulin at home. We will request patient's home medications to be accurately reconciled. We will check her A1c to assess medication requirement. We closely monitor need for insulin to reduce risk of hypoglycemia since patient has not been eating very well at home and has had associated weight loss -further orders per hospitalization course. ATTESTATION BY PHYSICIAN I have seen and examined the patient. I reviewed the documentation, medical decision making, and treatment plan as noted by the mid-level provider above. I agree with the findings and plan of care. Shyanne Logan MD, [employer] Dec 17, 2024 10:34
[2024-12-17] MEDS: PoTASSium chloRIDE 20MEQ ER 20 MEQ ERTAB PO ONE ×2 (10:44→16:16)
[2024-12-17] MEDS: PANTOPrazole 40 MG TAB DR PO SCH (10:45)
[2024-12-17] MEDS: LISINOPRIL 10 MG TABLET PO SCH (10:45)
[2024-12-17 10:55] VITALS: BP 144/77; PULSE 78; RESP 18; TEMP 97.8
[2024-12-17 15:18] VITALS: BP 127/65; PULSE 83; RESP 18; TEMP 99.1
--- NOTE | 2024-12-17 16:54 | HMCSR ---
APPROVED REPORT EXAM: Two-dimensional and M-mode echocardiogram with Doppler and color Doppler. INDICATION ICD: troponin elevation 2D Dimensions RVDd3.7 cmLVOT diam1.9 (1.8-2.4cm)LVED Vol(simp.)55.2 mL LVES Vol(simp.)16.2 mL LVEF(%, simp.)71 % LA ESV INDEX (4CH)24.00 mL/m2 LA ESV INDEX (2CH)11.30 mL/m2 LA ESV INDEX (BP)19.30 mL/m2 M-Mode Dimensions EPSS0.8 cm LA (MM)3.9 (1.6-4.0cm) Ao Root(MM)3.0 (2.0-3.7cm) Aortic Valve AoV VTI0.2 mAo Mean GR4.0 mmHgLVOT VTI0.26 m PRIMITIVO (VMAX)3.0 cm2AVA (VTI) 3.0 cm2 Mitral Valve MV E Vmax61.6 cm/sDECEL Bxox316 ms MV A Vmax87.3 cm/sP 1/2 T70 ms E/A ratio0.7MVA (PHT)3.1 cm2 TDI E/E' Swgbzd36.6E/E' Lateral8.0 Medial E' Peak V5.80 cm/sLateral E' Peak V7.70 cm/s Left Ventricle Left ventricular cavity size is normal. There is normal LV segmental wall motion. Apical hypertrophy is present. LVEF is >70%. Stage I diastolic dysfunction. Right Ventricle The right ventricle is normal size. The right ventricular systolic function is normal. Atria The left atrium size is normal. The right atrium size is normal. Aortic Valve The aortic valve is mildly thickened but opens well No aortic regurgitation is present. There is no a ortic valvular stenosis. Mitral Valve Mitral valve leaflets open well. There is no mitral valve regurgitation noted. There is no mitral khurram ve stenosis. Tricuspid Valve The tricuspid valve leaflets appear normal. There is no tricuspid valve regurgitation noted. Pulmonic Valve Pulmonic valve is not well visualized. Great Vessels The aortic root is normal in size. The IVC was not visualized. Pericardium No pericardial effusion. Other Information Technically limited study due to AMS, pt uncooperative Conclusion LVEF is >70%. Stage I diastolic dysfunction. There is normal LV segmental wall motion. Apical hypertrophy is present. No pericardial effusion. The aortic root is normal in size.
[2024-12-17 19:18] VITALS: BP 110/51; PULSE 84; RESP 18; TEMP 98.9
[2024-12-17] MEDS ORDERED: atorVAStatin 10 MG TABLET PO SCH (21:00)
[2024-12-17 23:52] VITALS: BP 120/63; PULSE 82; RESP 18; TEMP 98.3
[2024-12-18] VITALS (7 sets, daily range): BP systolic 122–155; BP diastolic 60–81; PULSE 65–89; RESP 18–22; TEMP 97.6–98.8; O2SAT 100
[2024-12-18 05:57] LABS: BASOPHILS # (AUTO) 0.03 K/uL (0.00-0.20); BASOPHILS % (AUTO) 0.4 % (0.0-5.0); EOSINOPHILS # (AUTO) 0.03 K/uL (0.00-0.70); EOSINOPHILS % (AUTO) 0.4 % (0.0-8.0); HEMATOCRIT 26.2 % (36-48); IMMATURE GRANULOCYTE ABSOLUTE 0.04 K/uL (0-1); LYMPHOCYTES % (AUTO) 27.6 % (21.0-51.0); MEAN CORPUSCULAR HEMOGLOBIN 25.6 pg (27.0-33.0); MEAN CORPUSCULAR HGB CONC 30.9 g/dL (32.0-36.0); MEAN CORPUSCULAR VOLUME 82.6 fL (79-99); MONOCYTES # (AUTO) 0.6 K/uL (0.1-1.0); MONOCYTES % (AUTO) 8.8 % (3.0-13.0); NEUTROPHILS # (AUTO) 4.5 K/uL (1.8-7.7); NEUTROPHILS % (AUTO) 62.2 % (40.0-77.0); PLATELET COUNT (AUTO) 245 K/uL (130-400); RED BLOOD CELL COUNT(AUTO) 3.17 MIL/uL (4.00-5.50); RED CELL DISTRIBUTION WIDTH 15.1 % (11.0-15.5); WHITE BLOOD COUNT (AUTO) 7.3 K/uL (4.8-10.8)
[2024-12-18 06:32] LABS: ALBUMIN 2.1 g/dL (3.5-5.0); BILIRUBIN,TOTAL 0.3 mg/dL (0.2-1.0); CREATININE 0.3 mg/dL (0.5-1.0); MAGNESIUM 1.1 mg/dL (1.80-2.40); TOTAL PROTEIN, SERUM 4.7 g/dL (6.0-8.3)
--- NOTE | 2024-12-18 07:00 | NUR ---
MAGNESIUM 1.2. COVERED FOLLOWING MAGNESIUM PROTOCOL.
[2024-12-18] MEDS: PoTASSium chloRIDE 20MEQ ER 20 MEQ ERTAB PO ONE ×3 (07:19→21:48)
[2024-12-18] MEDS: MAGNESIUM 2GM PREMIX 50ML 50 ML IV PRN (07:21)
[2024-12-18] MEDS ORDERED: MAGNESIUM 4GM PREMIX 100ML IV SCH (07:30)
[2024-12-18] MEDS ORDERED: ENOXAPARIN SODIUM 30 MG/0.3 ML SQ SCH (09:00)
--- NOTE | 2024-12-18 09:00 | NUR ---
POTASSIUM 3.0. COVERED IT FOLLOWING POTASSIUM PROTOCOL ESTABLISHED IN PATIENTS E-MAR VIA IV AND ORAL. PATIENT TOLERATED COVERAGE WELL.
[2024-12-18] MEDS: PoTASSium chloRIDE 20MEQ/100ML 100 ML IV PRN (09:36)
--- NOTE | 2024-12-18 11:42 | CONS ---
CONSULT NOTE: endocrinology consult Date of Service: Dec 18, 2024 chief complaint: fall at home reason for consult: DM-2 management HISTORY OF PRESENT ILLNESS: 74-year-old female with past medical history of diabetes mellitus type history of breast cancer , history of PVD, hypertension, hyperlipidemia who presented to the hospital secondary to fall at home. Patient lives by herself and states today while walking outside she she tripped on her fall and fell on her knees. Patient had presented to the ED yesterday for similar complaints. Patient's history is obtained from patient and from her daughter. Patient at the time tripped and fell and hit her head on the concrete. She came to the ED and underwent a CT head which showed no evidence of intracranial bleed. She was noted to have right frontal scalp contusion without evidence of fracture patient was discharged home for outpatient set up for care home placement. Patient again fell which was unwitnessed. She tripped on her foot and fell on her knees. She was noted to have bruising on the right orbital area. She states she has not been eating well at home. She has a history of breast cancer and sees oncologist and Angelito. She is unable to recall his name. She does not use walker or cane for ambulation. Daughter was concerned since patient has been living alone and was trying to get outpatient follow up with her care home for rehab. Secondary to recurrent fall she thereafter came to the hospital further evaluation. patient has lost around 60 lb. Patient has noticed decre ased appetite. She denies any melena, hematochezia, hematemesis Patient for her diabetes has only been taking metformin. Per patient she has not been taking insulin for more than a month. Her A1c during hospitalization was noted to be 7.8. She is currently only taking metformin. Labs in the ED were notable for white count of 15.3, hemoglobin was 12.1, platelet count was 338 K, sodium was 135, potassium was 3.4, creatinine was 0.5 Her troponin was 107, total CK was 4233 Patient is temperature on presentation was 98.1, heart rate was 74, blood pressure was 146/88, patient was saturating 99% on room air The patient underwent a CT head which was negative, cervical CT showed no fracture, CT maxillofacial showed no displaced fracture, patient underwent b ilateral pelvis x-ray which was negative REVIEW OF SYSTEMS CONSTITUTIONAL: Denies fevers, chills, or night sweats. Positive for weight loss, loss of appetite NEUROLOGICAL: Denies headache, amaurosis fugax, motor weakness, sensory deficit, vertigo/spinning sensation, gait abnormalities, or tremors. ENT: No hearing loss, otalgia, otorrhea, rhinitis, rhinorrhea, hoarseness, or sore throat. CARDIOVASCULAR: Denies any exertional angina, dyspnea on exertion, orthopnea, paroxysmal nocturnal dyspnea, palpitations, life-threatening arrhythmias, claudication. PULMONARY: Denies any shortness of breath, cough, phlegm/sputum, hemoptysis, pleuritic chest pain. GASTROINTESTINAL: Denies any type of dysphagia to either liquids or solids. Denies nausea, vomiting, pyrosis, early satiety, abdominal pain, diarrhea, constipation, or changes in stool consistency or caliber. Denies coffee-ground emesis, hematemesis, hematochezia, or melanotic stools. ENDOCRINOLOGIC: Denies polyuria, polydipsia, polyphagia or heat/cold intolerances. HEMATOLOGIC: Denies thrombophilia/previous clots, or coagulopathy/bleeding disorders. ONCOLOGIC: Denies personal history of malignancy. DERMATOLOGIC: Denies rashes or pruritus. PSYCHIATRIC: Denies any suicidal or homicidal ideation. Denies hallucinations. Musculoskeletal: positive for pain in knees bilaterally PAST MEDICAL HISTORY: Diabetes mellitus type 2, history breast cancer, history of PVD, hypertension, hyperlipidemia PAST SURGICAL HISTORY: History of peripheral intervention, right shoulder surgery, spine surgery, cataract surgery, tooth extraction PAST SOCIAL HISTORY: Currently denied any smoking, alcohol, drug use FAMILY HISTORY: Denied any pertinent family history Coded Allergies: No Known Allergies (Unverified Allergy, Unknown, 07/26/21) PHYSICAL EXAM GENERAL APPEARANCE: The patient is awake, alert, and oriented, in no acute cardiopulmonary distress. Patient appears very debilitated NEUROLOGICAL: Cranial nerves II-XII grossly intact. Motor is 5/5 in bilateral upper and lower extremities proximal to distal. No sensory deficits. HEENT: Face is symmetric. Pupils are equal and reactive. Extraocular movements are intact. He has bruising noted in the right orbital area of the face NECK: Supple. No JVD. No thyromegaly. No submental, submandibular, pre-/postauricular, occipital or supraclavicular lymphadenopathy. CHEST: Normal chest expansion. No Telemetry. LUNGS: Absence of any rales, rhonchi or any wheezing. CARDIOVASCULAR: Regular. S1 and S2 normal. No appreciable rubs, murmurs or gallops. ABDOMEN: Soft, nontender, and nondistended. There is no rebound, voluntary guarding, or rigidity. : Deferred. No Choi. EXTREMITIES: Non-edematous and not cyanotic. No clubbing. Good capillary refill. She has bruising noted in the knees bilateral SKIN: No skin breakdown. ASSESSMENT: DM-2, HBA1C 7.7% off insulin for 1 month. off glipizide. she takes metformin. denies any hypoglycemia at home. Mechanical fall POA Rhabdomyolysis POA Dehydration - improved Debility Right facial orbital ecchymosis secondary to fall Mild troponin elevation likely in setting of rhabdomyolysis Unintentional weight loss Breast cancer Hypertension Hyperlipidemia History of PVD Hypokalemia PLAN: decrease ssi to low dose ssi monitor glucose qx6 hourly continue to hold insulin and glipizide at discharge. if hyperglycemia then will add tradjenta 5 mg daily at discharge or as outpatient. thanks for allowing me to participate in patient care and will continue to follow up. Vital Signs 12/17/24 12/18/24 20:50 08:00 Temp 97.5 Pulse 65 Resp 18 B/P (MAP) 131/65 Pulse Ox 100 O2 Delivery Room Air O2 Flow Rate 0 FiO2 21 Hematology Labs: Test 12/18/24 05:38 Range/Units White Blood Count 7.3 4.8-10.8 K/uL Red Blood Count 3.17 L 4.00-5.50 MIL/uL Hemoglobin 8.1 #L 12.0-16.0 g/dL Hematocrit 26.2 #L 36-48 % Mean Corpuscular Volume 82.6 79-99 fL Mean Corpuscular Hemoglobin 25.6 L 27.0-33.0 pg Mean Corpuscular Hemoglobin Concent 30.9 L 32.0-36.0 g/dL Red Cell Distribution Width 15.1 11.0-15.5 % Platelet Count 245 130-400 K/uL Mean Platelet Volume 11.3 H 7.5-10.5 fL Immature Granulocyte % (Auto) 0.6 0-1 % Neutrophils (%) (Auto) 62.2 40.0-77.0 % Lymphocytes (%) (Auto) 27.6 21.0-51.0 % Monocytes (%) (Auto) 8.8 3.0-13.0 % Eosinophils (%) (Auto) 0.4 0.0-8.0 % Basophils (%) (Auto) 0.4 0.0-5.0 % Neutrophils # (Auto) 4.5 1.8-7.7 K/uL Lymphocytes # (Auto) 2.0 1.0-4.8 K/uL Monocytes # (Auto) 0.6 0.1-1.0 K/uL Eosinophils # (Auto) 0.03 0.00-0.70 K/uL Basophils # (Auto) 0.03 0.00-0.20 K/uL Absolute Immature Granulocyte (auto 0.04 0-1 K/uL Nucleated Red Blood Cells 0.0 0.0-0.19 % Red Blood Cell Morphology See comments Chemistry Labs: Test 12/18/24 05:38 12/18/24 05:18 12/17/24 19:52 12/17/24 00:31 Range/Units Sodium Level 142 136-145 mmol/L Potassium Level 3.0 *L 3.5-5.1 mmol/L Chloride Level 111 101-111 mmol/L Carbon Dioxide Level 25 21-32 mmol/L Blood Urea Nitrogen 4 L 7-18 mg/dL Creatinine 0.3 L 0.5-1.0 mg/dL Glomerular Filtration Rate Calc 110 >90 mL/min Random Glucose 107 H 70-105 mg/dL Total Calcium 7.1 L 8.5-10.1 mg/dL Magnesium Level 1.10 L 1.80-2.40 mg/dL Total Bilirubin 0.3 0.2-1.0 mg/dL Aspartate Amino Transf (AST/SGOT) 54 H 10-37 U/L Alanine Aminotransferase (ALT/SGPT) 25 12-78 U/L Alkaline Phosphatase 131 50-136 U/L Total Creatine Kinase 1038 #*H 21-232 U/L Total Protein 4.7 L 6.0-8.3 g/dL Albumin 2.1 L 3.5-5.0 g/dL Whole Blood Glucose 120 H 70-110 MG/DL Bedside Glucose Comment Protocol Initiated Troponin I High Sensitivity 67 *H 4-50 ng/L Test 12/16/24 13:49 Range/Units Hemoglobin A1c 7.7 H 4.0-6.0 % Estimated Average Glucose (eAG) 174 H 70-126 mg/dL C-Reactive Protein, Quantitative 49.70 H 0.5-3.0 mg/L Procalcitonin 0.73 H 0.05-0.5 ng/mL Thyroid Stimulating Hormone (TSH) 0.53 0.36-3.74 uIU/mL Coagulation Labs: Test 12/16/24 17:50 Range/Units Prothrombin Time 11.4 9.6-11.6 SEC Prothromb Time International Ratio 1.02 0.85-1.15 Activated Partial Thromboplast Time 28.5 26.3-35.5 SEC Current Medications Medications (Trade) Dose Ordered Sig/Jessica Route Start Time Stop Time Status Last Admin Dose Admin Atorvastatin Calcium (LIPItor 10MG) 10 mg HS PO 12/17/24 21:00 12/17/24 07:54 DC Ceftriaxone Sodium (ROCEphine 1G INJ) 1 gm Q24H IVPB 12/16/24 16:30 12/26/24 16:29 12/17/24 16:16 1 GM Enoxaparin Sodium (Lovenox) 30 mg DAILY SQ 12/18/24 09:00 12/18/24 09:35 DC Famotidine (Pepcid 20mg Vial) 20 mg BID IV 12/16/24 21:00 12/17/24 06:56 DC 12/16/24 20:25 20 MG Home Med (Home Medication) (Calcium Carb & Cit/ Vitamin... DAILY PO 12/17/24 09:00 01/16/25 08:59 Insulin Glargine (LANtus 100 UNITS/ML 10 ML VIAL) 64 units DAILY SQ 12/17/24 09:00 12/17/24 07:47 DC Insulin Human Lispro (HumaLOG LISpro 100 UNIT/ML 3ML) 6 unit DAILY SQ 12/17/24 09:00 12/17/24 07:47 DC Insulin Human Regular (humuLIN R 100 UNIT/ML 3ML) INSULIN SLIDING SCAL... ACHS SQ 12/16/24 21:00 01/15/25 20:59 Lisinopril (Prinivil 10mg) 10 mg DAILY PO 12/17/24 09:00 01/16/25 08:59 12/18/24 09:35 10 MG Magnesium Sulfate (Magnesium 4gm Premix 100ml) 4 gm AD IV 12/18/24 07:30 12/18/24 07:12 DC Oxybutynin Chloride (ditROPAN XL) 10 mg DAILY PO 12/17/24 09:00 12/17/24 07:54 DC Pantoprazole Sodium (PROTonix 40MG TAB) 40 mg DAILY PO 12/17/24 09:00 01/16/25 08:59 12/18/24 09:35 40 MG Sodium Chloride 1,000 ml @ 125 mls/hr Q8H IV 12/16/24 16:30 01/15/25 16:29 12/18/24 09:34 125 MLS/HR Sodium Chloride 1,000 ml @ 1,000 mls/hr Q1H STAT IV 12/16/24 15:31 12/16/24 16:30 DC 12/16/24 16:50 1,000 MLS/HR CAMILLE JON MD Dec 18, 2024 11:42
--- NOTE | 2024-12-18 12:18 | PN ---
[facility] PROGRESS NOTE Date of Service: Dec 18, 2024 Time of Service: 12:[address] Logan SUBJECTIVE: [ 12/16/24 74-year-old female with past medical history of diabetes mellitus type history of breast cancer , history of PVD, hypertension, hyperlipidemia who presented to the hospital secondary to fall at home. Patient lives by herself and states today while walking outside she she tripped on her fall and fell on her knees. Patient had presented to the ED yesterday for similar complaints. Patient's history is obtained from patient and from her daughter. Patient at the time tripped and fell and hit her head on the concrete. She came to the ED and underwent a CT head which showed no evidence of intracranial bleed. She was noted to have right frontal scalp contusion without evidence of fracture patient was discharged home for outpatient set up for snf placement. Patient again fell today which was unwitnessed. She tripped on her foot and fell on her knees. She denied losing any consciousness, chest pain, palpitations, fever, chills, abdominal pain, nausea, denied any dysuria, changes in her bowel movement. She was noted to have bruising on the right orbital area. She states she has not been eating well at home. She has a history of breast cancer and sees oncologist and Hodges. She is unable to recall his name. She does not use walker or cane for ambulation. Daughter was concerned since patient has been living alone and was trying to get outpatient follow up with her snf for rehab. Secondary to recurrent fall she thereafter came to the hospital further evaluation. Additionally daughter states since las t year patient has lost around 60 lb. Patient has noticed decreased appetite. She denies any melena, hematochezia, hematemesis On chart review patient was recently and was discharged on 12/11/2024. During hospitalization patient was ruled out for ACS. Patient for her diabetes has only been taking metformin. On her discharge summary she was noted to be on Tresiba 64 units, Humalog 6 units. Per patient she has not been taking insulin for more than a month. Her A1c during hospitalization was noted to be 7.8. She is currently only taking metformin. Labs in the ED were notable for white count of 15.3, hemoglobin was 12.1, platel et count was 338 K, sodium was 135, potassium was 3.4, creatinine was 0.5 Her troponin was 107, total CK was 4233 Patient is temperature on presentation was 98.1, heart rate was 74, blood pressure was 146/88, patient was saturating 99% on room air The patient underwent a CT head which was negative, cervical CT showed no fracture, CT maxillofacial showed no displaced fracture, patient underwent bilateral pelvis x-ray which was negative 12/17/24 patient was seen by nurse practitioner and physician during rounding in room 421 comfortably lying in bed. WBC is trending down today is 11.2. Patient continues to be on Rocephi meantime. CK dropped from 4233 to 2622. Patient continues to be on normal saline at 125 mL/hour troponin is trending down yesterday was88 today 67. Case management was consulted for sniff. 2D echo still pending. We will continue to monitor patient in the meantime. A.m. labs 12/18/24 patient was seen by nurse practitioner and physician during rounding in room 421. WBC is trending down today is 7.3. Also hemoglobin dropped from 10.5 to 8.1 and hematocrit 33 dropped to 26.2. We will repeat CBC. Potassium today is 3.0 be replaced with total of 120 mEq of potassium. Magnesium 1.1 we will be replaced with 4 g of magnesium and 2 g in the afternoon. CK is trending down yesterday was 2622 today is 1038. We will continue the fluids 0.9 at 125 mL/hour. Anticipated discharge within 24 hours. We will continue to monitor patient. A.m. labs.] REVIEW OF SYSTEMS CONSTITUTIONAL: Denies fevers, chills, or night sweats. Positive for weight loss, loss of appetite NEUROLOGICAL: Denies headache, amaurosis fugax, motor weakness, sensory deficit, vertigo/spinning sensation, gait abnormalities, or tremors. ENT: No hearing loss, otalgia, otorrhea, rhinitis, rhinorrhea, hoarseness, or so re throat. CARDIOVASCULAR: Denies any exertional angina, dyspnea on exertion, orthopnea, paroxysmal nocturnal dyspnea, palpitations, life-threatening arrhythmias, claudication. PULMONARY: Denies any shortness of breath, cough, phlegm/sputum, hemoptysis, pleuritic chest pain. GASTROINTESTINAL: Denies any type of dysphagia to either liquids or solids. Denies nausea, vomiting, pyrosis, early satiety, abdominal pain, diarrhea, con stipation, or changes in stool consistency or caliber. Denies coffee-ground emesis, hematemesis, hematochezia, or melanotic stools. GENITOURINARY: Denies frequency, urgency, nocturia, hematuria or incontinence (Storage/Irritative symptoms.) Low urinary stream, straining to void, urinary intermittency or hesitancy, splitting of the voiding stream, terminal dribbling. ENDOCRINOLOGIC: Denies polyuria, polydipsia, polyphagia or heat/cold intolerances. HEMATOLOGIC: Denies thrombophilia/previous clots, or coagulopathy/bleeding disorders. ONCOLOGIC: Denies personal history of malignancy. DERMATOLOGIC: Denies rashes or pruritus. PSYCHIATRIC: Denies any suicidal or homicidal ideation. Denies hallucinations. Musculoskeletal: positive for pain in knees bilaterally PHYSICAL EXAM GENERAL APPEARANCE: The patient is awake, alert, and oriented, in no acute cardiopulmonary distress. Patient appears very debilitated NEUROLOGICAL: Cranial nerves II-XII grossly intact. Motor is 5/5 in bilateral upper and lower extremities proximal to distal. No sensory deficits. HEENT: Face is symmetric. Pupils are equal and reactive. Extraocular movements are intact. He has bruising noted in the right orbital area of the face NECK: Supple. No JVD. No thyromegaly. No submental, submandibular, pre- /postauricular, occipital or supraclavicular lymphadenopathy. CHEST: Normal chest expansion. No Telemetry. LUNGS: Absence of any rales, rhonchi or any wheezing. CARDIOVASCULAR: Regular. S1 and S2 normal. No appreciable rubs, murmurs or gallops. ABDOMEN: Soft, nontender, and nondistended. There is no rebound, voluntary guarding, or rigidity. : Deferred. No Choi. EXTREMITIES: Non-edematous and not cyanotic. No clubbing. Good capillary r efill. She has bruising noted in the knees bilateral SKIN: No skin breakdown. Vital Signs (last 8hr) Date Time Temp Pulse Resp B/P (MAP) Pulse Ox O2 Delivery O2 Flow Rate FiO2 12/18/24 08:00 97.5 65 18 131/65 100 Room Air 21 LABS: Laboratory: Test 12/18/24 05:38 12/18/24 05:18 12/17/24 19:52 12/17/24 00:31 Range/Units White Blood Count 7.3 4.8-10.8 K/uL Red Blood Count 3.17 L 4.00-5.50 MIL/uL Hemoglobin 8.1 #L 12.0-16.0 g/dL Hematocrit 26.2 #L 36-48 % Mean Corpuscular Volume 82.6 79-99 fL Mean Corpuscular Hemoglobin 25.6 L 27.0-33.0 pg Mean Corpuscular Hemoglobin Concent 30.9 L 32.0-36.0 g/dL Red Cell Distribution Width 15.1 11.0-15.5 % Platelet Count 245 130-400 K/uL Mean Platelet Volume 11.3 H 7.5-10.5 fL Immature Granulocyte % (Auto) 0.6 0-1 % Neutrophils (%) (Auto) 62.2 40.0-77.0 % Lymphocytes (%) (Auto) 27.6 21.0-51.0 % Monocytes (%) (Auto) 8.8 3.0-13.0 % Eosinophils (%) (Auto) 0.4 0.0-8.0 % Basophils (%) (Auto) 0.4 0.0-5.0 % Neutrophils # (Auto) 4.5 1.8-7.7 K/uL Lymphocytes # (Auto) 2.0 1.0-4.8 K/uL Monocytes # (Auto) 0.6 0.1-1.0 K/uL Eosinophils # (Auto) 0.03 0.00-0.70 K/uL Basophils # (Auto) 0.03 0.00-0.20 K/uL Absolute Immature Granulocyte (auto 0.04 0-1 K/uL Nucleated Red Blood Cells 0.0 0.0-0.19 % Red Blood Cell Morphology See comments Sodium Level 142 136-145 mmol/L Potassium Level 3.0 *L 3.5-5.1 mmol/L Chloride Level 111 101-111 mmol/L Carbon Dioxide Level 25 21-32 mmol/L Blood Urea Nitrogen 4 L 7-18 mg/dL Creatinine 0.3 L 0.5-1.0 mg/dL Glomerular Filtration Rate Calc 110 >90 mL/min Random Glucose 107 H 70-105 mg/dL Total Calcium 7.1 L 8.5-10.1 mg/dL Magnesium Level 1.10 L 1.80-2.40 mg/dL Total Bilirubin 0.3 0.2-1.0 mg/dL Aspartate Amino Transf (AST/SGOT) 54 H 10-37 U/L Alanine Aminotransferase (ALT/SGPT) 25 12-78 U/L Alkaline Phosphatase 131 50-136 U/L Total Creatine Kinase 1038 #*H 21-232 U/L Total Protein 4.7 L 6.0-8.3 g/dL Albumin 2.1 L 3.5-5.0 g/dL Whole Blood Glucose 120 H 70-110 MG/DL Bedside Glucose Comment Protocol Initiated Troponin I High Sensitivity 67 *H 4-50 ng/L Test 12/16/24 18:45 12/16/24 17:50 12/16/24 13:49 12/16/24 13:19 Range/Units Influenza Type A Antigen Negative For Type A NEGATIVE Influenza Type B Antigen Negative For Type B NEGATIVE SARS-CoV-2, RNA, NAAT NEGATIVE SARS CoV-2 NEGATIVE Prothrombin Time 11.4 9.6-11.6 SEC Prothromb Time International Ratio 1.02 0.85-1.15 Activated Partial Thromboplast Time 28.5 26.3-35.5 SEC Hemoglobin A1c 7.7 H 4.0-6.0 % Estimated Average Glucose (eAG) 174 H 70-126 mg/dL C-Reactive Protein, Quantitative 49.70 H 0.5-3.0 mg/L Procalcitonin 0.73 H 0.05-0.5 ng/mL Thyroid Stimulating Hormone (TSH) 0.53 0.36-3.74 uIU/mL Urine Color YELLOW YELLOW Urine Appearance CLEAR CLEAR Urine pH 6.5 5.0-8.0 Urine Specific [place] 1.025 1.001-1.031 Urine Protein 30 H NEGATIVE mg/dL Urine Glucose (UA) 200 H NEGATIVE mg/dL Urine Ketones 20 H NEGATIVE mg/dL Urine Occult Blood NEGATIVE NEGATIVE Urine Nitrate NEGATIVE NEGATIVE Urine Bilirubin NEGATIVE NEGATIVE mg/dL Urine Urobilinogen 2.0 H 0.2-1.0 mg/dL Urine Leukocyte Esterase NEGATIVE NEGATIVE Lynnette/uL Urine RBC 0-1 0-1 /HPF Urine WBC 0-1 0-1 /HPF Urine Squamous Epithelial Cells RARE 0-2 /HPF Urine Bacteria None None Seen /HPF Current Medications Medications (Trade) Dose Ordered Sig/Jessica Route PRN Reason Start Time Stop Time Status Last Admin Dose Admin Acetaminophen (TYLenol 500MG TAB) 500 mg Q6H PRN PO MILD PAIN (1-3) 12/16/24 17:00 01/15/25 16:59 12/17/24 02:50 500 MG Atorvastatin Calcium (LIPItor 10MG) 10 mg HS PO 12/17/24 21:00 12/17/24 07:54 DC Ceftriaxone Sodium (ROCEphine 1G INJ) 1 gm Q24H IVPB 12/16/24 16:30 12/26/24 16:29 12/17/24 16:16 1 GM Enoxaparin Sodium (Lovenox) 30 mg DAILY SQ 12/18/24 09:00 12/18/24 09:35 DC Famotidine (Pepcid 20mg Vial) 20 mg BID IV 12/16/24 21:00 12/17/24 06:56 DC 12/16/24 20:25 20 MG Home Med (Home Medication) (Calcium Carb & Cit/ Vitamin... DAILY PO 12/17/24 09:00 01/16/25 08:59 Insulin Glargine (LANtus 100 UNITS/ML 10 ML VIAL) 64 units DAILY SQ 12/17/24 09:00 12/17/24 07:47 DC Insulin Human Lispro (HumaLOG LISpro 100 UNIT/ML 3ML) 6 unit DAILY SQ 12/17/24 09:00 12/17/24 07:47 DC Insulin Human Regular (humuLIN R 100 UNIT/ML 3ML) INSULIN SLIDING SCAL... ACHS SQ 12/16/24 21:00 01/15/25 20:59 Lisinopril (Prinivil 10mg) 10 mg DAILY PO 12/17/24 09:00 01/16/25 08:59 12/18/24 09:35 10 MG Magnesium Sulfate 50 ml @ 0 mls/hr PROTOCOL PRN IV hypomagnesemia 12/16/24 16:30 01/15/25 16:29 12/18/24 07:21 25 MLS/HR Magnesium Sulfate (Magnesium 4gm Premix 100ml) 4 gm AD IV 12/18/24 07:30 12/18/24 07:12 DC Oxybutynin Chloride (ditROPAN XL) 10 mg DAILY PO 12/17/24 09:00 12/17/24 07:54 DC Pantoprazole Sodium (PROTonix 40MG TAB) 40 mg DAILY PO 12/17/24 09:00 01/16/25 08:59 12/18/24 09:35 40 MG Potassium Chloride 100 ml @ 100 mls/hr AD PRN IV POTASSIUM PROTOCOL 12/16/24 16:30 01/15/25 16:29 12/18/24 09:36 100 MLS/HR Potassium Chloride (K-Dur/Klor-Con 20meq) 20 meq AD PRN PO POTASSIUM PROTOCOL 12/16/24 16:30 01/15/25 16:29 Potassium Chloride (KCl 10% Elixir 20meq/15ml) 20 meq AD PRN PO POTASSIUM PROTOCOL 12/16/24 16:30 01/15/25 16:29 Sodium Chloride 1,000 ml @ 125 mls/hr Q8H IV 12/16/24 16:30 01/15/25 16:29 12/18/24 09:34 125 MLS/HR Sodium Chloride 1,000 ml @ 1,000 mls/hr Q1H STAT IV 12/16/24 15:31 12/16/24 16:30 DC 12/16/24 16:50 1,000 MLS/HR DIAGNOSTICS / RADIOLOGY: [ ] ASSESSMENT: Mechanical fall POA Rhabdomyolysis POA Acute Dehydration Acute Debility due to above Right facial orbital ecchymosis secondary to fall Mild troponin elevation likely in setting of rhabdomyolysis History of diabetes mellitus type 2 Unintentional weight loss Breast cancer Hypertension Hyperlipidemia History of PVD Hypokalemia Admit to: 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 Fall Precautions. Well lighted room through the day and minimize interruptions through the night to prevent acute delirium. PULMONARY: Supplemental 02 as needed BiPAP as necessary, for respiratory distress Titrate Fio2 to keep Spo2 > or = 90% DuoNebs and CPT as needed IS hourly while awake for pulmonary hygiene Out of bed to chair as tolerated VAP Bundle Maintain aspiration precautions at all times CARDIOVASCULAR: Follow hemodynamics. Vital signs per facility protocol GI & NUTRITION: Continue nutritional support Aspirations precautions Prokinetic agents and laxatives as needed KIDNEYS & ELECTROLYTES: Strict monitoring of intake and output Daily weights Avoid nephrotoxic agents Monitor electrolytes and replace as needed Goal urine output of 30mL/hr or 0.5mL/kg/hr Medications to be dosed according to renal function. Avoid contrast if possible ENDOCRINE: Maintain blood glucose between 100-180 at all times. Insulin sliding scale for blood glucose management Hypoglycemia and hyperglycemia protocol in place INFECTIOUS DISEASE: Trend temperature, WBC and procalcitonin level Follow cultures, deescalate antibiotics as soon as possible. Panculture if new onset fever HEMATOLOGY & COAGULATION: Monitor H&H. Keep Hgb > 7 Transfuse 1 unit of PRBC for Hgb < 7 Transfuse 1 pack of platelets of platelets < 20, 000 Watch for any signs and symptoms of bleeding SKIN: Pressure ulcer prevention per facility protocol Specialty mattress as needed Treatment plan discussed with patient and family at the bedside Medications to be reconciled once obtained by patient and/or family and available to be reconciled in computer p.r.n. 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 I reviewed the documentation, medical decision making, and treatment plan as noted by the mid-level provider above. I agree with the findings and plan of care. Shyanne Logan MD, [facility] [employer] Dec 18, 2024 12:18
[2024-12-18 13:29] LABS: BASOPHILS # (AUTO) 0.03 K/uL (0.00-0.20); BASOPHILS % (AUTO) 0.4 % (0.0-5.0); EOSINOPHILS # (AUTO) 0.02 K/uL (0.00-0.70); EOSINOPHILS % (AUTO) 0.2 % (0.0-8.0); HEMATOCRIT 31.3 % (36-48); IMMATURE GRANULOCYTE ABSOLUTE 0.04 K/uL (0-1); LYMPHOCYTES # (AUTO) 1.8 K/uL (1.0-4.8); LYMPHOCYTES % (AUTO) 21.8 % (21.0-51.0); MEAN CORPUSCULAR HEMOGLOBIN 26.1 pg (27.0-33.0); MEAN CORPUSCULAR HGB CONC 31.6 g/dL (32.0-36.0); MEAN CORPUSCULAR VOLUME 82.6 fL (79-99); MONOCYTES # (AUTO) 0.5 K/uL (0.1-1.0); MONOCYTES % (AUTO) 6.7 % (3.0-13.0); NEUTROPHILS # (AUTO) 5.7 K/uL (1.8-7.7); NEUTROPHILS % (AUTO) 70.4 % (40.0-77.0); PLATELET COUNT (AUTO) 283 K/uL (130-400); RED BLOOD CELL COUNT(AUTO) 3.79 MIL/uL (4.00-5.50); RED CELL DISTRIBUTION WIDTH 15.1 % (11.0-15.5); WHITE BLOOD COUNT (AUTO) 8.1 K/uL (4.8-10.8)
[2024-12-18 13:34] LABS: MAGNESIUM 1.7 mg/dL (1.80-2.40); POTASSIUM 4.5 mmol/L (3.5-5.1)
--- NOTE | 2024-12-18 14:40 | NUR ---
CALLED [facility] FOR HOSPITALIST, NOTIFY HER THAT PATIENT WAS AGITATED AND AGGRESSIVE TOWARDS STAFF. (VIEW ORDERS)
[2024-12-18] MEDS: LORazepam 2 MG/ML 1 ML VIAL IM ONE (14:49)
[2024-12-18] MEDS ORDERED: DEXTROSE 50%-WATER 50 ML DISP.SYRIN IV PRN (16:30)
[2024-12-18] MEDS ORDERED: GLUCAGON 1MG KIT 1 MG ML IM PRN (16:30)
--- NOTE | 2024-12-18 16:30 | NUR ---
BLOOD GLUCOSE 62. CALLED MRS. CHENG MORTGAGE LOAN PROCESSOR FOR HOSPITALIST TO NOTIFY HER. PLACED PATIENT ON HYPOGLYCEMIA PROTOCOL. GAVE PATIENT DEXTROSE 50% IVP. PATIENT WAS COMBATIVE; DID NOT GIVE ANYTHING ORAL DUE TO RISK FOR ASPIRATION DUE TO NOT ABLE TO FOLLOW INSTRUCTIONS. RE-CHECKED AT 1700, BLOOD GLUCOSE 112.
[2024-12-18] MEDS: DEXTROSE 50%-WATER 50 ML DISP.SYRIN IV ONE (16:40)
--- NOTE | 2024-12-18 18:16 | NUR ---
DC PLAN PATIENT LIVES WITH ALONE. DAUGHTER IN ROOM WITH ELVIA DUTTON. PATIENT HAS A WHEEL CHAIR, CANE. NO PROVIDER. RAFFAELE #1 DANI ANDRADE # [facility] THEN [facility]. PATIENT DID GIVE VERBAL CONSENT. WAS ABLE TO ANSWER QUESTIONS BUT TENDED TO WANDER IN CONVERSATION. NOT ABLE TO STAY ON TOPIC LONG. PER DAUGHTER SAID THINKS SHE MIGHT BE STARTING DEMENTIA. EXPLAINED THAT DX HAS TO COME FROM PCP NORMALLY SINCE THEY SEE PATIENT LONGER. SAID MOM CHANGES PCP ALL THE TIME BECAUSE SHE DOES NOT LIKE WHAT THEY TELL HER. WOULD LIKE FOR HER TO GO TO FACILITY FOR SHORT TERM AND LOOK AT [facility]. PATIENT ON 2:1 AND TRIES TO GET UP. EXPLAINED WOULD NEED TO BE OFF 2:1 BEFORE CAN SEND REFERRAL EVEN THEN MIGHT NOT TAKE PATIENT. GAVE LIST OF PRIVATE PAY PROVIDERS AND NUMBER TO [facility] SO THAT THEY COULD TALK TO [facility] TO SEE IF THERE ARE GOV ASSISTANCE PROGRAMS FOR DECLARING PATIENT INCOMPETENT. CALLED [facility] WITH [facility] SAID TO SEND REFERRAL ONCE PATIENT IS OFF 2:1 IF SENT NOW WILL BE REJECTED BY CNO. Addendum: 12/18/24 at 1828 by SHEY FALCON RN CM Amended: Links added.
[2024-12-18] MEDS: HALOPERIDOL INJ 5 MG/ML VIAL IM ONE (21:48)
[2024-12-19] VITALS (8 sets, daily range): BP systolic 126–178; BP diastolic 50–85; PULSE 72–85; RESP 15–18; TEMP 97.2–98.8; O2SAT 99
[2024-12-19 03:50] LABS: BASOPHILS # (AUTO) 0.04 K/uL (0.00-0.20); BASOPHILS % (AUTO) 0.4 % (0.0-5.0); EOSINOPHILS # (AUTO) 0.06 K/uL (0.00-0.70); EOSINOPHILS % (AUTO) 0.6 % (0.0-8.0); HEMATOCRIT 35.6 % (36-48); IMMATURE GRANULOCYTE ABSOLUTE 0.04 K/uL (0-1); LYMPHOCYTES # (AUTO) 2.7 K/uL (1.0-4.8); LYMPHOCYTES % (AUTO) 25.4 % (21.0-51.0); MEAN CORPUSCULAR HEMOGLOBIN 25.7 pg (27.0-33.0); MEAN CORPUSCULAR HGB CONC 31.5 g/dL (32.0-36.0); MEAN CORPUSCULAR VOLUME 81.7 fL (79-99); MONOCYTES # (AUTO) 0.9 K/uL (0.1-1.0); MONOCYTES % (AUTO) 8.8 % (3.0-13.0); NEUTROPHILS # (AUTO) 6.9 K/uL (1.8-7.7); NEUTROPHILS % (AUTO) 64.4 % (40.0-77.0); PLATELET COUNT (AUTO) 328 K/uL (130-400); RED BLOOD CELL COUNT(AUTO) 4.36 MIL/uL (4.00-5.50); RED CELL DISTRIBUTION WIDTH 14.7 % (11.0-15.5); WHITE BLOOD COUNT (AUTO) 10.7 K/uL (4.8-10.8)
[2024-12-19 04:50] LABS: ALBUMIN 2.9 g/dL (3.5-5.0); BILIRUBIN,TOTAL 0.3 mg/dL (0.2-1.0); CREATININE 0.4 mg/dL (0.5-1.0); MAGNESIUM 1.5 mg/dL (1.80-2.40); POTASSIUM 3.8 mmol/L (3.5-5.1); TOTAL PROTEIN, SERUM 6.6 g/dL (6.0-8.3)
--- NOTE | 2024-12-19 07:30 | NUR ---
The patient is received this morning on 2:1. The patient is sleeping and continues to have moments of confusion. She denies pain and has been in a sinus rhythm. IV fluids are infusing by a 20g peripheral IV to the left AC. The line is patent and flushing well. She is on room air. Side rails ar up x2 and the bed is in a low position with the call ortega in reach.
[2024-12-19] MEDS ORDERED: hydrALAZine 20MG/ML VIAL IV PRN (09:30)
--- NOTE | 2024-12-19 12:01 | NUR ---
Glucometer reading 254 mg/dl. The patient remains combative and will not cooperate with insulin administration. She is also not eating her meal at the bedside.
[2024-12-19] MEDS: MAGNESIUM 2GM PREMIX 50ML 50 ML IV SCH (12:59)
--- NOTE | 2024-12-19 14:54 | PN ---
[facility] PROGRESS NOTE Date of Service: Dec 19, 2024 Time of Service: 14:[address] Logan SUBJECTIVE: [ 12/16/24 74-year-old female with past medical history of diabetes mellitus type history of breast cancer , history of PVD, hypertension, hyperlipidemia who presented to the hospital secondary to fall at home. Patient lives by herself and states today while walking outside she she tripped on her fall and fell on her knees. Patient had presented to the ED yesterday for similar complaints. Patient's history is obtained from patient and from her daughter. Patient at the time tripped and fell and hit her head on the concrete. She came to the ED and underwent a CT head which showed no evidence of intracranial bleed. She was noted to have right frontal scalp contusion without evidence of fracture patient was discharged home for outpatient set up for fdc placement. Patient again fell today which was unwitnessed. She tripped on her foot and fell on her knees. She denied losing any consciousness, chest pain, palpitations, fever, chills, abdominal pain, nausea, denied any dysuria, changes in her bowel movement. She was noted to have bruising on the right orbital area. She states she has not been eating well at home. She has a history of breast cancer and sees oncologist and [place]. She is unable to recall his name. She does not use walker or cane for ambulation. Daughter was concerned since patient has been living alone and was trying to get outpatient follow up with her fdc for rehab. Secondary to recurrent fall she thereafter came to the hospital further evaluation. Additionally daughter states since las t year patient has lost around 60 lb. Patient has noticed decreased appetite. She denies any melena, hematochezia, hematemesis On chart review patient was recently and was discharged on 12/11/2024. During hospitalization patient was ruled out for ACS. Patient for her diabetes has only been taking metformin. On her discharge summary she was noted to be on Tresiba 64 units, Humalog 6 units. Per patient she has not been taking insulin for more than a month. Her A1c during hospitalization was noted to be 7.8. She is currently only taking metformin. Labs in the ED were notable for white count of 15.3, hemoglobin was 12.1, platel et count was 338 K, sodium was 135, potassium was 3.4, creatinine was 0.5 Her troponin was 107, total CK was 4233 Patient is temperature on presentation was 98.1, heart rate was 74, blood pressure was 146/88, patient was saturating 99% on room air The patient underwent a CT head which was negative, cervical CT showed no fracture, CT maxillofacial showed no displaced fracture, patient underwent bilateral pelvis x-ray which was negative 12/17/24 patient was seen by nurse practitioner and physician during rounding in room 421 comfortably lying in bed. WBC is trending down today is 11.2. Patient continues to be on Rocephi meantime. CK dropped from 4233 to 2622. Patient continues to be on normal saline at 125 mL/hour troponin is trending down yesterday was88 today 67. Case management was consulted for sniff. 2D echo still pending. We will continue to monitor patient in the meantime. A.m. labs 12/18/24 patient was seen by nurse practitioner and physician during rounding in room 421. WBC is trending down today is 7.3. Also hemoglobin dropped from 10.5 to 8.1 and hematocrit 33 dropped to 26.2. We will repeat CBC. Potassium today is 3.0 be replaced with total of 120 mEq of potassium. Magnesium 1.1 we will be replaced with 4 g of magnesium and 2 g in the afternoon. CK is trending down yesterday was 2622 today is 1038. We will continue the fluids 0.9 at 125 mL/hour. Anticipated discharge within 24 hours. We will continue to monitor patient. A.m. labs. 12/19/24 patient was seen by nurse practitioner and physician during rounding in room 421. One-to-one was discontinued. CK today is 1302. Patient will receive 400 cc bolus of normal saline. Patient will continue normal saline at 125 mL/hour in the meantime. Per piercing artist patient will be started on Tradjenta 5 mg daily at discharge. Patient is still having high blood pressures in the mornings and in the evening. We will add hydralazine 25 mg p.o. b.i.d. for now. Patient is pending [place] disposition once insurance approved. We will continue to monitor patient in the meantime. A.m. labs] REVIEW OF SYSTEMS CONSTITUTIONAL: Denies fevers, chills, or night sweats. Positive for weight loss, loss of appetite NEUROLOGICAL: Denies headache, amaurosis fugax, motor weakness, sensory deficit, vertigo/spinning sensation, gait abnormalities, or tremors. ENT: No hearing loss, otalgia, otorrhea, rhinitis, rhinorrhea, hoarseness, or sore throat. CARDIOVASCULAR: Denies any exertional angina, dyspnea on exertion, orthopnea, paroxysmal nocturnal dyspnea, palpitations, life-threatening arrhythmias, claudication. PULMONARY: Denies any shortness of breath, cough, phlegm/sputum, hemoptysis, pleuritic chest pain. GASTROINTESTINAL: Denies any type of dysphagia to either liquids or solids. Denies nausea, vomiting, pyrosis, early satiety, abdominal pain, diarrhea, constipation, or changes in stool consistency or caliber. Denies coffee-ground emesis, hematemesis, hematochezia, or melanotic stools. GENITOURINARY: Denies frequency, urgency, nocturia, hematuria or incontinence (Storage/Irritative symptoms.) Low urinary stream, straining to void, urinary intermittency or hesitancy, splitting of the voiding stream, terminal dribbling. ENDOCRINOLOGIC: Denies polyuria, polydipsia, polyphagia or heat/cold intolerances. HEMATOLOGIC: Denies thrombophilia/previous clots, or coagulopathy/bleeding disorders. ONCOLOGIC: Denies personal history of malignancy. DERMATOLOGIC: Denies rashes or pruritus. PSYCHIATRIC: Denies any suicidal or homicidal ideation. Denies hallucinations. Musculoskeletal: positive for pain in knees bilaterally PHYSICAL EXAM GENERAL APPEARANCE: The patient is awake, alert, and oriented, in no acute cardiopulmonary distress. Patient appears very debilitated NEUROLOGICAL: Cranial nerves II-XII grossly intact. Motor is 5/5 in bilateral upper and lower extremities proximal to distal. No sensory deficits. HEENT: Face is symmetric. Pupils are equal and reactive. Extraocular movements are intact. He has bruising noted in the right orbital area of the face NECK: Supple. No JVD. No thyromegaly. No submental, submandibular, pre- /postauricular, occipital or supraclavicular lymphadenopathy. CHEST: Normal chest expansion. No Telemetry. LUNGS: Absence of any rales, rhonchi or any wheezing. CARDIOVASCULAR: Regular. S1 and S2 normal. No appreciable rubs, murmurs or gallops. ABDOMEN: Soft, nontender, and nondistended. There is no rebound, voluntary guarding, or rigidity. : Deferred. No Choi. EXTREMITIES: Non-edematous and not cyanotic. No clubbing. Good capillary refill. She has bruising noted in the knees bilateral SKIN: No skin breakdown. Vital Signs (last 8hr) Date Time Temp Pulse Resp B/P (MAP) Pulse Ox O2 Delivery O2 Flow Rate FiO2 12/19/24 13:23 99 Room Air* 0 21 12/19/24 11:42 97.2 77 15 136/73 100 Room Air 0.0 12/19/24 07:43 97.2 78 15 178/85 97 Room Air 0.0 LABS: Laboratory: Test 12/19/24 11:39 12/19/24 03:26 12/18/24 05:38 12/17/24 19:52 Range/Units Whole Blood Glucose 254 H 70-110 MG/DL White Blood Count 10.7 # 4.8-10.8 K/uL Red Blood Count 4.36 4.00-5.50 MIL/uL Hemoglobin 11.2 L 12.0-16.0 g/dL Hematocrit 35.6 L 36-48 % Mean Corpuscular Volume 81.7 79-99 fL Mean Corpuscular Hemoglobin 25.7 L 27.0-33.0 pg Mean Corpuscular Hemoglobin Concent 31.5 L 32.0-36.0 g/dL Red Cell Distribution Width 14.7 11.0-15.5 % Platelet Count 328 130-400 K/uL Mean Platelet Volume 11.6 H 7.5-10.5 fL Immature Granulocyte % (Auto) 0.4 0-1 % Neutrophils (%) (Auto) 64.4 40.0-77.0 % Lymphocytes (%) (Auto) 25.4 21.0-51.0 % Monocytes (%) (Auto) 8.8 3.0-13.0 % Eosinophils (%) (Auto) 0.6 0.0-8.0 % Basophils (%) (Auto) 0.4 0.0-5.0 % Neutrophils # (Auto) 6.9 1.8-7.7 K/uL Lymphocytes # (Auto) 2.7 1.0-4.8 K/uL Monocytes # (Auto) 0.9 0.1-1.0 K/uL Eosinophils # (Auto) 0.06 0.00-0.70 K/uL Basophils # (Auto) 0.04 0.00-0.20 K/uL Absolute Immature Granulocyte (auto 0.04 0-1 K/uL Nucleated Red Blood Cells 0.0 0.0-0.19 % Sodium Level 141 136-145 mmol/L Potassium Level 3.8 3.5-5.1 mmol/L Chloride Level 105 101-111 mmol/L Carbon Dioxide Level 28 21-32 mmol/L Blood Urea Nitrogen 6 L 7-18 mg/dL Creatinine 0.4 L 0.5-1.0 mg/dL Glomerular Filtration Rate Calc 103 >90 mL/min Random Glucose 144 H 70-105 mg/dL Total Calcium 8.8 8.5-10.1 mg/dL Magnesium Level 1.50 L 1.80-2.40 mg/dL Total Bilirubin 0.3 0.2-1.0 mg/dL Aspartate Amino Transf (AST/SGOT) 70 H 10-37 U/L Alanine Aminotransferase (ALT/SGPT) 38 # 12-78 U/L Alkaline Phosphatase 195 #H 50-136 U/L Total Creatine Kinase 1302 #*H 21-232 U/L Total Protein 6.6 # 6.0-8.3 g/dL Albumin 2.9 #L 3.5-5.0 g/dL Red Blood Cell Morphology See comments Bedside Glucose Comment Protocol Initiated Current Medications Medications (Trade) Dose Ordered Sig/Jessica Route PRN Reason Start Time Stop Time Status Last Admin Dose Admin Acetaminophen (TYLenol 500MG TAB) 500 mg Q6H PRN PO MILD PAIN (1-3) 12/16/24 17:00 01/15/25 16:59 12/17/24 02:50 500 MG Atorvastatin Calcium (LIPItor 10MG) 10 mg HS PO 12/17/24 21:00 12/17/24 07:54 DC Ceftriaxone Sodium (ROCEphine 1G INJ) 1 gm Q24H IVPB 12/16/24 16:30 12/26/24 16:29 12/18/24 16:52 1 GM Dextrose (D50w) 50 ml AD PRN IV HYPOGLYCEMIA PROTOCOL 12/18/24 16:30 01/17/25 16:29 Enoxaparin Sodium (Lovenox) 30 mg DAILY SQ 12/18/24 09:00 12/18/24 09:35 DC Famotidine (Pepcid 20mg Vial) 20 mg BID IV 12/16/24 21:00 12/17/24 06:56 DC 12/16/24 20:25 20 MG Glucagon (Glucagon 1mg Kit) 1 mg AD PRN IM HYPOGLYCEMIA PROTOCOL 12/18/24 16:30 01/17/25 16:29 Home Med (Home Medication) (Calcium Carb & Cit/ Vitamin... DAILY PO 12/17/24 09:00 01/16/25 08:59 Hydralazine HCl (APRESOLine 20MG INJ) 10 mg Q6H PRN IV ADMINISTER FOR SBP > 150 12/19/24 09:30 01/18/25 09:29 Insulin Glargine (LANtus 100 UNITS/ML 10 ML VIAL) 64 units DAILY SQ 12/17/24 09:00 12/17/24 07:47 DC Insulin Human Lispro (HumaLOG LISpro 100 UNIT/ML 3ML) 6 unit DAILY SQ 12/17/24 09:00 12/17/24 07:47 DC Insulin Human Regular (humuLIN R 100 UNIT/ML 3ML) INSULIN SLIDING SCAL... ACHS SQ 12/16/24 21:00 01/15/25 20:59 12/18/24 12:48 2 UNIT Lisinopril (Prinivil 10mg) 10 mg DAILY PO 12/17/24 09:00 01/16/25 08:59 12/19/24 09:10 10 MG Magnesium Sulfate 50 ml @ 0 mls/hr PROTOCOL IV 12/19/24 12:00 01/18/25 11:59 12/19/24 12:59 0 MLS/HR Magnesium Sulfate 50 ml @ 0 mls/hr PROTOCOL PRN IV hypomagnesemia 12/16/24 16:30 12/19/24 11:47 DC 12/19/24 04:57 25 MLS/HR Magnesium Sulfate (Magnesium 4gm Premix 100ml) 4 gm AD IV 12/18/24 07:30 12/18/24 07:12 DC Oxybutynin Chloride (ditROPAN XL) 10 mg DAILY PO 12/17/24 09:00 12/17/24 07:54 DC Pantoprazole Sodium (PROTonix 40MG TAB) 40 mg DAILY PO 12/17/24 09:00 01/16/25 08:59 12/19/24 09:10 40 MG Potassium Chloride 100 ml @ 100 mls/hr AD PRN IV POTASSIUM PROTOCOL 12/16/24 16:30 01/15/25 16:29 12/18/24 09:36 100 MLS/HR Potassium Chloride (K-Dur/Klor-Con 20meq) 20 meq AD PRN PO POTASSIUM PROTOCOL 12/16/24 16:30 01/15/25 16:29 Potassium Chloride (KCl 10% Elixir 20meq/15ml) 20 meq AD PRN PO POTASSIUM PROTOCOL 12/16/24 16:30 01/15/25 16:29 Sodium Chloride 1,000 ml @ 125 mls/hr Q8H IV 12/16/24 16:30 01/15/25 16:29 12/19/24 08:45 125 MLS/HR Sodium Chloride 1,000 ml @ 1,000 mls/hr Q1H STAT IV 12/16/24 15:31 12/16/24 16:30 DC 12/16/24 16:50 1,000 MLS/HR DIAGNOSTICS / RADIOLOGY: [ ] ASSESSMENT: Mechanical fall POA Rhabdomyolysis POA Acute Dehydration Acute Debility due to above Right facial orbital ecchymosis secondary to fall Mild troponin elevation likely in setting of rhabdomyolysis History of diabetes mellitus type 2 Unintentional weight loss Breast cancer Uncontrolled Hypertension Hyperlipidemia History of PVD Hypokalemia Admit to: Consults: Medicine Man Antibiotics: Rocephin Tests: None NEURO: Minimize central acting medications as possible. Fall Precautions. Well lighted room through the day and minimize interruptions through the night to prevent acute delirium. PULMONARY: Supplemental 02 as needed BiPAP as necessary, for respiratory distress Titrate Fio2 to keep Spo2 > or = 90% DuoNebs and CPT as needed IS hourly while awake for pulmonary hygiene Out of bed to chair as tolerated VAP Bundle Maintain aspiration precautions at all times CARDIOVASCULAR: Follow hemodynamics. Vital signs per facility protocol GI & NUTRITION: Continue nutritional support Aspirations precautions Prokinetic agents and laxatives as needed KIDNEYS & ELECTROLYTES: Strict monitoring of intake and output Daily weights Avoid nephrotoxic agents Monitor electrolytes and replace as needed Goal urine output of 30mL/hr or 0.5mL/kg/hr Medications to be dosed according to renal function. Avoid contrast if possible ENDOCRINE: Maintain blood glucose between 100-180 at all times. Insulin sliding scale for blood glucose management Hypoglycemia and hyperglycemia protocol in place INFECTIOUS DISEASE: Trend temperature, WBC and procalcitonin level Follow cultures, deescalate antibiotics as soon as possible. Panculture if new onset fever HEMATOLOGY & COAGULATION: Monitor H&H. Keep Hgb > 7 Transfuse 1 unit of PRBC for Hgb < 7 Transfuse 1 pack of platelets of platelets < 20, 000 Watch for any signs and symptoms of bleeding SKIN: Pressure ulcer prevention per facility protocol Specialty mattress as needed Treatment plan discussed with patient and family at the bedside Medications to be reconciled once obtained by patient and/or family and available to be reconciled in computer p.r.n. medication for pain nausea and vomiting Questions were answered We will continue to monitor the patient closely Practice Management Consultant for disposition Rehab: PT/OT GI: PPI DVT: SCD's Code Status: Full Resuscitation Disposition: TBD Prognosis: Guarded ATTESTATION BY PHYSICIAN I have seen and examined the patient. I reviewed the documentation, medical decision making, and treatment plan as noted by the mid-level provider above. I agree with the findings and plan of care. Shyanne Logan MD, [facility] SPECIAL EVENTS COORDINATOR Dec 19, 2024 14:54
[2024-12-19] MEDS: PoTASSium chl 10% ELIXIR 20MEQ 20 MEQ/15 ML UDCUP PO PRN (20:50)
[2024-12-19] MEDS: hydrALAZine 25MG TABLET PO SCH (20:50)
--- NOTE | 2024-12-19 20:58 | PN ---
endocrinology progress note Date of Service: Dec 19, 2024 subjective: hyperglycemia is improving but glucose are mildly elevated. REVIEW OF SYSTEMS CONSTITUTIONAL: Denies fevers, chills, or night sweats. Positive for weight loss, loss of appetite NEUROLOGICAL: Denies headache, amaurosis fugax, motor weakness, sensory deficit, vertigo/spinning sensation, gait abnormalities, or tremors. ENT: No hearing loss, otalgia, otorrhea, rhinitis, rhinorrhea, hoarseness, or sore throat. CARDIOVASCULAR: Denies any exertional angina, dyspnea on exertion, orthopnea, paroxysmal nocturnal dyspnea, palpitations, life-threatening arrhythmias, claudication. PULMONARY: Denies any shortness of breath, cough, phlegm/sputum, hemoptysis, pleuritic chest pain. GASTROINTESTINAL: Denies any type of dysphagia to either liquids or solids. Denies nausea, vomiting, pyrosis, early satiety, abdominal pain, diarrhea, constipation, or changes in stool consistency or caliber. Denies coffee-ground emesis, hematemesis, hematochezia, or melanotic stools. ENDOCRINOLOGIC: Denies polyuria, polydipsia, polyphagia or heat/cold intolerances. HEMATOLOGIC: Denies thrombophilia/previous clots, or coagulopathy/bleeding disorders. ONCOLOGIC: Denies personal history of malignancy. DERMATOLOGIC: Denies rashes or pruritus. PSYCHIATRIC: Denies any suicidal or homicidal ideation. Denies hallucinations. Musculoskeletal: positive for pain in knees bilaterally PAST MEDICAL HISTORY: Diabetes mellitus type 2, history breast cancer, history of PVD, hypertension, hyperlipidemia PAST SURGICAL HISTORY: History of peripheral intervention, right shoulder surgery, spine surgery, cataract surgery, tooth extraction PAST SOCIAL HISTORY: Currently denied any smoking, alcohol, drug use FAMILY HISTORY: Denied any pertinent family history Coded Allergies: No Known Allergies (Unverified Allergy, Unknown, 07/26/21) ASSESSMENT: DM-2, HBA1C 7.7% off insulin for 1 month. off glipizide. she takes metformin. denies any hypoglycemia at home. Mechanical fall POA Rhabdomyolysis POA Dehydration - improved Debility Right facial orbital ecchymosis secondary to fall Mild troponin elevation likely in setting of rhabdomyolysis Unintentional weight loss Breast cancer Hypertension Hyperlipidemia History of PVD Hypokalemia PLAN: continue low dose ssi monitor glucose qx6 hourly continue to hold insulin and glipizide at discharge. if hyperglycemia then will add tradjenta 5 mg daily at discharge or as outpatient. Vitals/Labs Vital Signs Date Time Temp Pulse Resp B/P (MAP) Pulse Ox O2 Delivery O2 Flow Rate FiO2 12/19/24 19:44 98.8 85 18 128/63 98 Room Air 12/19/24 15:41 0.0 12/19/24 13:23 21 Laboratory Tests 12/19/24 03:26 Medications Current Medications Sodium Chloride 1,000 ml @ 1,000 mls/hr Q1H STAT IV Last administered on 12/16/24at 16:50; Start 12/16/24 at 15:31; Stop 12/16/24 at 16:30; Status DC Famotidine 20 mg BID IV Last administered on 12/16/24at 20:25; Start 12/16/24 at 21:00; Stop 12/17/24 at 06:56; Status DC Sodium Chloride 1,000 ml @ 125 mls/hr Q8H IV Last administered on 12/19/24at 16:03; Start 12/16/24 at 16:30; Stop 01/15/25 at 16:29 Ceftriaxone Sodium 1 gm Q24H IVPB Last administered on 12/19/24at 15:33; Start 12/16/24 at 16:30; Stop 12/26/24 at 16:29 Potassium Chloride 100 ml @ 100 mls/hr AD PRN IV Last administered on 12/18/24at 09:36; Start 12/16/24 at 16:30; Stop 01/15/25 at 16:29 Potassium Chloride 20 meq AD PRN PO; Start 12/16/24 at 16:30; Stop 01/15/25 at 16:29 Potassium Chloride 20 meq AD PRN PO; Start 12/16/24 at 16:30; Stop 01/15/25 at 16:29 Magnesium Sulfate 50 ml @ 0 mls/hr PROTOCOL PRN IV Last administered on 12/19/24at 04:57; Start 12/16/24 at 16:30; Stop 12/19/24 at 11:47; Status DC Acetaminophen 500 mg Q6H PRN PO Last administered on 12/19/24at 16:03; Start 12/16/24 at 17:00; Stop 01/15/25 at 16:59 Insulin Human Regular INSULIN SLIDING SCAL... ACHS SQ Last administered on 12/18/24at 12:48; Start 12/16/24 at 21:00; Stop 01/15/25 at 20:59 Lisinopril 10 mg DAILY PO Last administered on 12/19/24at 09:10; Start 12/17/24 at 09:00; Stop 01/16/25 at 08:59 Home Med (Calcium Carb & Cit/ Vitamin... DAILY PO; Start 12/17/24 at 09:00; Stop 01/16/25 at 08:59 Insulin Glargine 64 units DAILY SQ; Start 12/17/24 at 09:00; Stop 12/17/24 at 07:47; Status DC Insulin Human Lispro 6 unit DAILY SQ; Start 12/17/24 at 09:00; Stop 12/17/24 at 07:47; Status DC Pantoprazole Sodium 40 mg DAILY PO Last administered on 12/19/24at 09:10; Start 12/17/24 at 09:00; Stop 01/16/25 at 08:59 Oxybutynin Chloride 10 mg DAILY PO; Start 12/17/24 at 09:00; Stop 12/17/24 at 07:54; Status DC Atorvastatin Calcium 10 mg HS PO; Start 12/17/24 at 21:00; Stop 12/17/24 at 07:54; Status DC Potassium Chloride 40 meq ONCE ONCE PO Last administered on 12/17/24at 10:44; Start 12/17/24 at 07:00; Stop 12/17/24 at 07:01; Status DC Potassium Chloride 40 meq ONCE ONCE PO Last administered on 12/17/24at 16:16; Start 12/17/24 at 16:00; Stop 12/17/24 at 16:01; Status DC Enoxaparin Sodium 30 mg DAILY SQ; Start 12/18/24 at 09:00; Stop 12/18/24 at 09:35; Status DC Magnesium Sulfate 4 gm AD IV; Start 12/18/24 at 07:30; Stop 12/18/24 at 07:12; Status DC Potassium Chloride 40 meq ONCE ONCE PO Last administered on 12/18/24at 07:19; Start 12/18/24 at 07:30; Stop 12/18/24 at 07:31; Status DC Potassium Chloride 20 meq ONCE ONCE PO Last administered on 12/18/24at 12:45; Start 12/18/24 at 12:00; Stop 12/18/24 at 12:01; Status DC Potassium Chloride 40 meq ONCE ONCE PO Last administered on 12/18/24at 21:48; Start 12/18/24 at 21:00; Stop 12/18/24 at 21:01; Status DC Lorazepam 0.5 mg ONCE ONCE IM Last administered on 12/18/24at 14:49; Start 12/18/24 at 15:00; Stop 12/18/24 at 15:01; Status DC Dextrose 50 ml STK-MED ONCE IV Last administered on 12/18/24at 16:40; Start 12/18/24 at 16:31; Stop 12/18/24 at 16:33; Status DC Dextrose 50 ml AD PRN IV; Start 12/18/24 at 16:30; Stop 01/17/25 at 16:29 Glucagon 1 mg AD PRN IM; Start 12/18/24 at 16:30; Stop 01/17/25 at 16:29 Haloperidol Lactate 2.5 mg ONCE ONCE IM Last administered on 12/18/24at 21:48; Start 12/18/24 at 19:30; Stop 12/18/24 at 20:01; Status DC Hydralazine HCl 10 mg Q6H PRN IV; Start 12/19/24 at 09:30; Stop 01/18/25 at 09:29 Magnesium Sulfate 50 ml @ 0 mls/hr PROTOCOL IV Last administered on 12/19/24at 12:59; Start 12/19/24 at 12:00; Stop 01/18/25 at 11:59 Hydralazine HCl 25 mg BID PO; Start 12/19/24 at 21:00; Stop 01/18/25 at 20:59 CAMILLE JON MD Dec 19, 2024 20:58
[2024-12-20] VITALS (7 sets, daily range): BP systolic 123–136; BP diastolic 63–86; PULSE 72–103; RESP 17–20; TEMP 97.8–98.3; O2SAT 99
[2024-12-20] MEDS: MELATONIN 5 MG TABLET PO ONE (00:05)
[2024-12-20 06:25] LABS: BASOPHILS # (AUTO) 0.05 K/uL (0.00-0.20); BASOPHILS % (AUTO) 0.6 % (0.0-5.0); EOSINOPHILS % (AUTO) 1.3 % (0.0-8.0); HEMATOCRIT 33.7 % (36-48); IMMATURE GRANULOCYTE ABSOLUTE 0.03 K/uL (0-1); LYMPHOCYTES # (AUTO) 2.2 K/uL (1.0-4.8); MEAN CORPUSCULAR HEMOGLOBIN 25.7 pg (27.0-33.0); MEAN CORPUSCULAR HGB CONC 30.6 g/dL (32.0-36.0); MONOCYTES # (AUTO) 0.5 K/uL (0.1-1.0); NEUTROPHILS % (AUTO) 63.7 % (40.0-77.0); PLATELET COUNT (AUTO) 324 K/uL (130-400); RED BLOOD CELL COUNT(AUTO) 4.01 MIL/uL (4.00-5.50); RED CELL DISTRIBUTION WIDTH 15.1 % (11.0-15.5); WHITE BLOOD COUNT (AUTO) 7.9 K/uL (4.8-10.8)
[2024-12-20 06:52] LABS: ALBUMIN 2.6 g/dL (3.5-5.0); BILIRUBIN,TOTAL 0.3 mg/dL (0.2-1.0); CREATININE 0.4 mg/dL (0.5-1.0); MAGNESIUM 1.8 mg/dL (1.80-2.40); POTASSIUM 4.2 mmol/L (3.5-5.1); TOTAL PROTEIN, SERUM 5.9 g/dL (6.0-8.3)
[2024-12-20] MEDS ORDERED: levoFLOXacin 750 MG/D5W 150ML BAG IV SCH (09:00)
[2024-12-20] MEDS: levoFLOXacin 750 MG TABLET PO SCH (11:45)
[2024-12-20] MEDS: linAGLIPtin 5 MG TABLET PO ONE (11:45)
--- NOTE | 2024-12-20 12:22 | DS ---
Discharge Summary Hospital Course Summary: DATE OF ADMISSION:[12/16/2024] DATE OF DISCHARGE:[12/20/2024] DISPOSITION:[[facility]] CONDITION:[Medically stable] CONSULTANTS:[Clinical Biostatistician] FOLLOW UP APPOINTMENTS:[PCP 2 to 3 days. Clinical Biostatistician within one week] PROCEDURES:[None] IMAGING: report attached to summary MICROBIOLOGY: report attached to summary ACTIVITY:[One-person assist] HOME MEDICATIONS: see med recc NEW MEDICATIONS:[See med rec] EMERGENCY INSTRUCTIONS: The patient was instructed to present to the nearest Emergency departmentr or call 911 once their symptoms will return or worsen Schedule Maker(s): 74-year-old female with past medical history of diabetes mellitus type history of breast cancer , history of PVD, hypertension, hyperlipidemia who presented to the hospital secondary to fall at home. Patient lives by herself and states today while walking outside she she tripped on her fall and fell on her knees. Patient had presented to the ED yesterday for similar complaints. Patient's history is obtained from patient and from her daughter. Patient at the time tripped and fell and hit her head on the concrete. She came to the ED and underwent a CT head which showed no evidence of intracranial bleed. She was noted to have right frontal scalp contusion without evidence of fracture patient was discharged home for outpatient set up for fpc placement. Patient again fell today which was unwitnessed. She tripped on her foot and fell on her knees. She denied losing any consciousness, chest pain, palpitations, fever, chills, abdominal pain, nausea, denied any dysuria, changes in her bowel movement. She was noted to have bruising on the right orbital area. She states she has not been eating well at home. She has a history of breast cancer and sees oncologist and [facility]. She is unable to recall his name. She does not use walker or cane for ambulation. Daughter was concerned since patient has been living alone and was trying to get outpatient follow up with her fpc for rehab. Secondary to recurrent fall she thereafter came to the hospital further evaluation. Additionally daughter states since last year patient has lost around 60 lb. Patient has noticed decreased appetite. She denies any melena, hematochezia, hematemesis On chart review patient was recently and was discharged on 12/11/2024. During hospitalization patient was ruled out for ACS. Patient for her diabetes has only been taking metformin. On her discharge summary she was noted to be on Tresiba 64 units, Humalog 6 units. Per patient she has not been taking insulin for more than a month. Her A1c during hospitalization was noted to be 7.8. She is currently only taking metformin. Labs in the ED were notable for white count of 15.3, hemoglobin was 12.1, platelet count was 338 K, sodium was 135, potassium was 3.4, creatinine was 0.5 Her troponin was 107, total CK was 4233 Patient is temperature on presentation was 98.1, heart rate was 74, blood pressure was 146/88, patient was saturating 99% on room air The patient underwent a CT head which was negative, cervical CT showed no fracture, CT maxillofacial showed no displaced fracture, patient underwent bilateral pelvis x-ray which was negative Throughout the hospitalization patient's was evaluated by nipple machine operator and was started on new DM medications. On admission patient's CK was 4233 today is 463. Blood is growing Streptococcus hominis. Patient was placed on levofloxacin. Chest x-ray was negative. Head CT negative. Cervical spine CT negative. CT maxillofacial negative. Pelvis x-ray negative knee x-ray negative CT abdomen/pelvis showed diverticulosis large fecal material. 2D echo showed more than 70% stage I diastolic dysfunction. Today WBC is 7.9. Electrolytes replaced per protocol. Patient is cleared to be discharged to [place] once insurance approved. Follow-up with PCP in 2 to 3 days. Follow up with the nipple machine operator within one week. Procedure(s): REVIEW OF SYSTEMS CONSTITUTIONAL: Denies fevers, chills, or night sweats. Positive for weight loss, loss of appetite NEUROLOGICAL: Denies headache, amaurosis fugax, motor weakness, sensory deficit, vertigo/spinning sensation, gait abnormalities, or tremors. ENT: No hearing loss, otalgia, otorrhea, rhinitis, rhinorrhea, hoarseness, or sore throat. CARDIOVASCULAR: Denies any exertional angina, dyspnea on exertion, orthopnea, paroxysmal nocturnal dyspnea, palpitations, life-threatening arrhythmias, claudication. PULMONARY: Denies any shortness of breath, cough, phlegm/sputum, hemoptysis, pleuritic chest pain. GASTROINTESTINAL: Denies any type of dysphagia to either liquids or solids. Denies nausea, vomiting, pyrosis, early satiety, abdominal pain, diarrhea, constipation, or changes in stool consistency or caliber. Denies coffee-ground emesis, hematemesis, hematochezia, or melanotic stools. GENITOURINARY: Denies frequency, urgency, nocturia, hematuria or incontinence (Storage/Irritative symptoms.) Low urinary stream, straining to void, urinary intermittency or hesitancy, splitting of the voiding stream, terminal dribbling. ENDOCRINOLOGIC: Denies polyuria, polydipsia, polyphagia or heat/cold intole rances. HEMATOLOGIC: Denies thrombophilia/previous clots, or coagulopathy/bleeding disorders. ONCOLOGIC: Denies personal history of malignancy. DERMATOLOGIC: Denies rashes or pruritus. PSYCHIATRIC: Denies any suicidal or homicidal ideation. Denies hallucinations. Musculoskeletal: positive for pain in knees bilaterally PHYSICAL EXAM GENERAL APPEARANCE: The patient is awake, alert, and oriented, in no acute cardiopulmonary distress. Patient appears very debilitated NEUROLOGICAL: Cranial nerves II-XII grossly intact. Motor is 5/5 in bilateral upper and lower extremities proximal to distal. No sensory deficits. HEENT: Face is symmetric. Pupils are equal and reactive. Extraocular movements are intact. He has bruising noted in the right orbital area of the face NECK: Supple. No JVD. No thyromegaly. No submental, submandibular, pre- /postauricular, occipital or supraclavicular lymphadenopathy. CHEST: Normal chest expansion. No Telemetry. LUNGS: Absence of any rales, rhonchi or any wheezing. CARDIOVASCULAR: Regular. S1 and S2 normal. No appreciable rubs, murmurs or gallops. ABDOMEN: Soft, nontender, and nondistended. There is no rebound, voluntary guarding, or rigidity. : Deferred. No Choi. EXTREMITIES: Non-edematous and not cyanotic. No clubbing. Good capillary refill. She has bruising noted in the knees bilateral SKIN: No skin breakdown. Assessment/Plan: ASSESSMENT: Mechanical fall POA Rhabdomyolysis POA Acute Dehydration Acute Debility due to above Right facial orbital ecchymosis secondary to fall Mild troponin elevation likely in setting of rhabdomyolysis History of diabetes mellitus type 2 Unintentional weight loss Breast cancer Uncontrolled Hypertension Hyperlipidemia History of PVD Hypokalemia Home Medications: Reported Medications Lisinopril (Lisinopril) 10 Mg Tablet, 10 MG PO DAILY, TAB 12/27/21 Oxybutynin Chloride (Oxybutynin Chloride ER) 10 Mg Tab.er.24, 10 MG PO DAILY 12/27/21 Calcium Carb & Cit/Vitamin D3 (Calcium + D3 ER Tablet) 1 Each Tablet.er, 2 EACH PO DAILY, TAB 12/27/21 Clopidogrel Bisulfate (Clopidogrel) 75 Mg Tablet, 75 MG PO DAILY, TAB 12/27/21 Omeprazole (Omeprazole) 20 Mg Capsule.dr, 20 MG PO DAILY, CAP 12/27/21 Pravastatin Sodium (Pravastatin Sodium) 40 Mg Tablet, 40 MG PO HS, TAB 12/27/21 Metformin HCl (Metformin HCl) 500 Mg Tablet, 1000 MG PO BID, TAB 12/27/21 Insulin Lispro (Humalog) 100 Unit/1 Ml Insuln.pen, 6 UNITS SQ DAILY, SYRINGE 12/27/21 Insulin Degludec (Tresiba) 100 Unit/1 Ml Vial, 64 UNIT SQ DAILY, VIAL 12/27/21 Discontinued Scripts Lidocaine (Pain Relief Patch) 4 % Adh..patch, 1 EACH TP DAILY for 10 Days, #10 ADH.PATCH 2 Refills Prov:LENKA CLARK MD 12/11/24 Cefdinir (Cefdinir) 300 Mg Capsule, 1 CAP PO BID for 5 Days, #10 CAP 0 Refills Prov:LENKA CLARK MD 12/11/24 Acetaminophen with Codeine (Acetaminophen-Cod #3 Tablet) 300 Mg-30 Mg Tablet, 1 TAB PO Q6H PRN for PAIN LEVEL 2 TO 5, #20 TAB 0 Refills Prov:SIA KHANNA MD 11/19/24 Time spent arranging discharge: 31-60 minutes ATTESTATION BY PHYSICIAN I have seen and examined the patient. I reviewed the documentation, medical decision making, and treatment plan as noted by the mid-level provider above. I agree with the findings and plan of care. Shyanne Logan MD, KATARZYNA B [facility]IER Dec 20, 2024 12:22
[2024-12-20] MEDS: MELATONIN 5 MG TABLET PO PRN (21:34)
--- NOTE | 2024-12-20 22:26 | PN ---
endocrinology progress note Date of Service: Dec 20, 2024 subjective: hyperglycemia is improving REVIEW OF SYSTEMS CONSTITUTIONAL: Denies fevers, chills, or night sweats. Positive for weight loss, loss of appetite NEUROLOGICAL: Denies headache, amaurosis fugax, motor weakness, sensory deficit, vertigo/spinning sensation, gait abnormalities, or tremors. ENT: No hearing loss, otalgia, otorrhea, rhinitis, rhinorrhea, hoarseness, or sore throat. CARDIOVASCULAR: Denies any exertional angina, dyspnea on exertion, orthopnea, paroxysmal nocturnal dyspnea, palpitations, life-threatening arrhythmias, claudication. PULMONARY: Denies any shortness of breath, cough, phlegm/sputum, hemoptysis, pleuritic chest pain. GASTROINTESTINAL: Denies any type of dysphagia to either liquids or solids. Denies nausea, vomiting, pyrosis, early satiety, abdominal pain, diarrhea, constipation, or changes in stool consistency or caliber. Denies coffee-ground emesis, hematemesis, hematochezia, or melanotic stools. ENDOCRINOLOGIC: Denies polyuria, polydipsia, polyphagia or heat/cold intolerances. HEMATOLOGIC: Denies thrombophilia/previous clots, or coagulopathy/bleeding disorders. ONCOLOGIC: Denies personal history of malignancy. DERMATOLOGIC: Denies rashes or pruritus. PSYCHIATRIC: Denies any suicidal or homicidal ideation. Denies hallucinations. Musculoskeletal: positive for pain in knees bilaterally PAST MEDICAL HISTORY: Diabetes mellitus type 2, history breast cancer, history of PVD, hypertension, hyperlipidemia PAST SURGICAL HISTORY: History of peripheral intervention, right shoulder surgery, spine surgery, cataract surgery, tooth extraction PAST SOCIAL HISTORY: Currently denied any smoking, alcohol, drug use FAMILY HISTORY: Denied any pertinent family history Coded Allergies: No Known Allergies (Unverified Allergy, Unknown, 07/26/21) ASSESSMENT: DM-2, HBA1C 7.7% off insulin for 1 month. off glipizide. she takes metformin. denies any hypoglycemia at home. Mechanical fall POA Rhabdomyolysis POA Dehydration - improved Debility Right facial orbital ecchymosis secondary to fall Mild troponin elevation likely in setting of rhabdomyolysis Unintentional weight loss Breast cancer Hypertension Hyperlipidemia History of PVD Hypokalemia PLAN: continue low dose ssi monitor glucose qx6 hourly continue to hold insulin and glipizide at discharge. start tradjenta 5 mg daily and will need tradjenta 5 mg daily at discharge Vitals/Labs Vital Signs Date Time Temp Pulse Resp B/P (MAP) Pulse Ox O2 Delivery O2 Flow Rate FiO2 12/20/24 20:28 97.9 88 17 133/70 98 Room Air 12/20/24 11:04 21 12/20/24 08:00 0 Laboratory Tests 12/20/24 06:14 Medications Current Medications Sodium Chloride 1,000 ml @ 1,000 mls/hr Q1H STAT IV Last administered on 12/16/24at 16:50; Start 12/16/24 at 15:31; Stop 12/16/24 at 16:30; Status DC Famotidine 20 mg BID IV Last administered on 12/16/24at 20:25; Start 12/16/24 at 21:00; Stop 12/17/24 at 06:56; Status DC Sodium Chloride 1,000 ml @ 125 mls/hr Q8H IV Last administered on 12/20/24at 05:21; Start 12/16/24 at 16:30; Stop 01/15/25 at 16:29 Ceftriaxone Sodium 1 gm Q24H IVPB Last administered on 12/19/24at 15:33; Start 12/16/24 at 16:30; Stop 12/20/24 at 08:49; Status DC Potassium Chloride 100 ml @ 100 mls/hr AD PRN IV Last administered on 12/18/24at 09:36; Start 12/16/24 at 16:30; Stop 01/15/25 at 16:29 Potassium Chloride 20 meq AD PRN PO Last administered on 12/19/24at 20:50; Start 12/16/24 at 16:30; Stop 01/15/25 at 16:29 Potassium Chloride 20 meq AD PRN PO; Start 12/16/24 at 16:30; Stop 01/15/25 at 16:29 Magnesium Sulfate 50 ml @ 0 mls/hr PROTOCOL PRN IV Last administered on 12/19/24at 04:57; Start 12/16/24 at 16:30; Stop 12/19/24 at 11:47; Status DC Acetaminophen 500 mg Q6H PRN PO Last administered on 12/20/24at 20:54; Start 12/16/24 at 17:00; Stop 01/15/25 at 16:59 Insulin Human Regular INSULIN SLIDING SCAL... ACHS SQ Last administered on 12/20/24at 17:56; Start 12/16/24 at 21:00; Stop 01/15/25 at 20:59 Lisinopril 10 mg DAILY PO Last administered on 12/20/24at 11:47; Start 12/17/24 at 09:00; Stop 01/16/25 at 08:59 Home Med (Calcium Carb & Cit/ Vitamin... DAILY PO; Start 12/17/24 at 09:00; Stop 01/16/25 at 08:59 Insulin Glargine 64 units DAILY SQ; Start 12/17/24 at 09:00; Stop 12/17/24 at 07:47; Status DC Insulin Human Lispro 6 unit DAILY SQ; Start 12/17/24 at 09:00; Stop 12/17/24 at 07:47; Status DC Pantoprazole Sodium 40 mg DAILY PO Last administered on 12/20/24at 11:46; Start 12/17/24 at 09:00; Stop 01/16/25 at 08:59 Oxybutynin Chloride 10 mg DAILY PO; Start 12/17/24 at 09:00; Stop 12/17/24 at 07:54; Status DC Atorvastatin Calcium 10 mg HS PO; Start 12/17/24 at 21:00; Stop 12/17/24 at 07:54; Status DC Potassium Chloride 40 meq ONCE ONCE PO Last administered on 12/17/24at 10:44; Start 12/17/24 at 07:00; Stop 12/17/24 at 07:01; Status DC Potassium Chloride 40 meq ONCE ONCE PO Last administered on 12/17/24at 16:16; Start 12/17/24 at 16:00; Stop 12/17/24 at 16:01; Status DC Enoxaparin Sodium 30 mg DAILY SQ; Start 12/18/24 at 09:00; Stop 12/18/24 at 09:35; Status DC Magnesium Sulfate 4 gm AD IV; Start 12/18/24 at 07:30; Stop 12/18/24 at 07:12; Status DC Potassium Chloride 40 meq ONCE ONCE PO Last administered on 12/18/24at 07:19; Start 12/18/24 at 07:30; Stop 12/18/24 at 07:31; Status DC Potassium Chloride 20 meq ONCE ONCE PO Last administered on 12/18/24at 12:45; Start 12/18/24 at 12:00; Stop 12/18/24 at 12:01; Status DC Potassium Chloride 40 meq ONCE ONCE PO Last administered on 12/18/24at 21:48; Start 12/18/24 at 21:00; Stop 12/18/24 at 21:01; Status DC Lorazepam 0.5 mg ONCE ONCE IM Last administered on 12/18/24at 14:49; Start 12/18/24 at 15:00; Stop 12/18/24 at 15:01; Status DC Dextrose 50 ml STK-MED ONCE IV Last administered on 12/18/24at 16:40; Start 12/18/24 at 16:31; Stop 12/18/24 at 16:33; Status DC Dextrose 50 ml AD PRN IV; Start 12/18/24 at 16:30; Stop 01/17/25 at 16:29 Glucagon 1 mg AD PRN IM; Start 12/18/24 at 16:30; Stop 01/17/25 at 16:29 Haloperidol Lactate 2.5 mg ONCE ONCE IM Last administered on 12/18/24at 21:48; Start 12/18/24 at 19:30; Stop 12/18/24 at 20:01; Status DC Hydralazine HCl 10 mg Q6H PRN IV; Start 12/19/24 at 09:30; Stop 01/18/25 at 09:29 Magnesium Sulfate 50 ml @ 0 mls/hr PROTOCOL IV Last administered on 12/20/24at 07:10; Start 12/19/24 at 12:00; Stop 01/18/25 at 11:59 Hydralazine HCl 25 mg BID PO Last administered on 12/20/24at 20:54; Start 12/19/24 at 21:00; Stop 01/18/25 at 20:59 Melatonin 5 mg HS PRN PO Last administered on 12/20/24at 21:34; Start 12/20/24 at 00:00; Stop 01/19/25 at 00:00 Melatonin 5 mg STK-MED ONCE PO Last administered on 12/20/24at 00:05; Start 12/19/24 at 23:50; Stop 12/19/24 at 23:56; Status DC Linagliptin 5 mg ONCE ONCE PO Last administered on 12/20/24at 11:45; Start 12/20/24 at 09:00; Stop 12/20/24 at 09:01; Status DC Levofloxacin/ Dextrose 750 mg Q24H IV; Start 12/20/24 at 09:00; Stop 12/20/24 at 08:55; Status DC Levofloxacin 750 mg Q24H PO Last administered on 12/20/24at 11:45; Start 12/20/24 at 09:00; Stop 12/30/24 at 08:59 CAMILLE JON MD Dec 20, 2024 22:26
[2024-12-21 04:06] VITALS: BP 143/73; PULSE 82; RESP 18; TEMP 98.1
[2024-12-21 08:00] VITALS: BP 146/67; PULSE 74; RESP 19; TEMP 98.2
--- NOTE | 2024-12-21 10:58 | PN ---
[facility] PROGRESS NOTE Date of Service: Dec 21, 2024 Time of Service: 10:[address] Logan SUBJECTIVE: [ 12/16/24 74-year-old female with past medical history of diabetes mellitus type history of breast cancer , history of PVD, hypertension, hyperlipidemia who presented to the hospital secondary to fall at home. Patient lives by herself and states today while walking outside she she tripped on her fall and fell on her knees. Patient had presented to the ED yesterday for similar complaints. Patient's history is obtained from patient and from her daughter. Patient at the time tripped and fell and hit her head on the concrete. She came to the ED and underwent a CT head which showed no evidence of intracranial bleed. She was noted to have right frontal scalp contusion without evidence of fracture patient was discharged home for outpatient set up for custodial placement. Patient again fell today which was unwitnessed. She tripped on her foot and fell on her knees. She denied losing any consciousness, chest pain, palpitations, fever, chills, abdominal pain, nausea, denied any dysuria, changes in her bowel movement. She was noted to have bruising on the right orbital area. She states she has not been eating well at home. She has a history of breast cancer and sees oncologist and [place]. She is unable to recall his name. She does not use walker or cane for ambulation. Daughter was concerned since patient has been living alone and was trying to get outpatient follow up with her custodial for rehab. Secondary to recurrent fall she thereafter came to the hospital further evaluation. Additionally daughter states since las t year patient has lost around 60 lb. Patient has noticed decreased appetite. She denies any melena, hematochezia, hematemesis On chart review patient was recently and was discharged on 12/11/2024. During hospitalization patient was ruled out for ACS. Patient for her diabetes has only been taking metformin. On her discharge summary she was noted to be on Tresiba 64 units, Humalog 6 units. Per patient she has not been taking insulin for more than a month. Her A1c during hospitalization was noted to be 7.8. She is currently only taking metformin. Labs in the ED were notable for white count of 15.3, hemoglobin was 12.1, platel et count was 338 K, sodium was 135, potassium was 3.4, creatinine was 0.5 Her troponin was 107, total CK was 4233 Patient is temperature on presentation was 98.1, heart rate was 74, blood pressure was 146/88, patient was saturating 99% on room air The patient underwent a CT head which was negative, cervical CT showed no fracture, CT maxillofacial showed no displaced fracture, patient underwent bilateral pelvis x-ray which was negative 12/17/24 patient was seen by nurse practitioner and physician during rounding in room 421 comfortably lying in bed. WBC is trending down today is 11.2. Patient continues to be on Rocephi meantime. CK dropped from 4233 to 2622. Patient continues to be on normal saline at 125 mL/hour troponin is trending down yesterday was88 today 67. Case management was consulted for sniff. 2D echo still pending. We will continue to monitor patient in the meantime. A.m. labs 12/18/24 patient was seen by nurse practitioner and physician during rounding in room 421. WBC is trending down today is 7.3. Also hemoglobin dropped from 10.5 to 8.1 and hematocrit 33 dropped to 26.2. We will repeat CBC. Potassium today is 3.0 be replaced with total of 120 mEq of potassium. Magnesium 1.1 we will be replaced with 4 g of magnesium and 2 g in the afternoon. CK is trending down yesterday was 2622 today is 1038. We will continue the fluids 0.9 at 125 mL/hour. Anticipated discharge within 24 hours. We will continue to monitor patient. A.m. labs. 12/19/24 patient was seen by nurse practitioner and physician during rounding in room 421. One-to-one was discontinued. CK today is 1302. Patient will receive 400 cc bolus of normal saline. Patient will continue normal saline at 125 mL/hour in the meantime. Per hand worker patient will be started on Tradjenta 5 mg daily at discharge. Patient is still having high blood pressures in the mornings and in the evening. We will add hydralazine 25 mg p.o. b.i.d. for now. Patient is pending [facility] disposition once insurance approved. We will continue to monitor patient in the meantime. A.m. labs 12/20/24 74-year-old female with past medical history of diabetes mellitus type history of breast cancer , history of PVD, hypertension, hyperlipidemia who presented to the hospital secondary to fall at home. Patient lives by herself and states today while walking outside she she tripped on her fall and fell on her knees. Patient had presented to the ED yesterday for similar complaints. Patient's history is obtained from patient and from her daughter. Patient at the time tripped and fell and hit her head on the concrete. She came to the ED and underwent a CT head which showed no evidence of intracranial bleed. She was noted to have right frontal scalp contusion without evidence of fracture patient was discharged home for outpatient set up for custodial placement. Patient again fell today which was unwitnessed. She tripped on her foot and fell on her knees. She denied losing any consciousness, chest pain, palpitations, fever, chills, abdominal pain, nausea, denied any dysuria, changes in her bowel movement. She was noted to have bruising on the right orbital area. She states she has not been eating well at home. She has a history of breast cancer and sees oncologist and [place]. She is unable to recall his name. She does not use walker or cane for ambulation. Daughter was concerned since patient has been living alone and was trying to get outpatient follow up with her custodial for rehab. Secondary to recurrent fall she thereafter came to the hospital further evaluation. Additionally daughter states since last year patient has lost around 60 lb. Patient has noticed decreased appetite. She denies any melena, hematochezia, hematemesis On chart review patient was recently and was discharged on 12/11/2024. During hospitalization patient was ruled out for ACS. Patient for her diabetes has only been taking metformin. On her discharge summary she was noted to be on Tresiba 64 units, Humalog 6 units. Per patient she has not been taking insulin for more than a month. Her A1c during hospitalization was noted to be 7.8. She is currently only taking metformin. Labs in the ED were notable for white count of 15.3, hemoglobin was 12.1, platelet count was 338 K, sodium was 135, potassium was 3.4, creatinine was 0.5 Her troponin was 107, total CK was 4233 Patient is temperature on presentation was 98.1, heart rate was 74, blood pressure was 146/88, patient was saturating 99% on room air The patient underwent a CT head which was negative, cervical CT showed no fracture, CT maxillofacial showed no displaced fracture, patient underwent bilateral pelvis x-ray which was negative Throughout the hospitalization patient's was evaluated by hand worker and was started on new DM medications. On admission patient's CK was 4233 today is 463. Blood is growing Streptococcus hominis. Patient was placed on levofloxacin. Chest x-ray was negative. Head CT negative. Cervical spine CT negative. CT maxillofacial negative. Pelvis x-ray negative knee x-ray negative CT abdomen/pelvis showed diverticulosis large fecal material. 2D echo showed more than 70% stage I diastolic dysfunction. Today WBC is 7.9. Electrolytes replaced per protocol. Patient is cleared to be discharged to [facility] once insurance approved. Follow-up with PCP in 2 to 3 days. Follow up with the hand worker within one week. 12/21/24 patient was seen by [employer] and physician during rounding in room 423. Patient was discharged to [facility] yesterday, unfortunately patient is still pending approval. We will continue to monitor patient in the meantime. A.m. labs] REVIEW OF SYSTEMS CONSTITUTIONAL: Denies fevers, chills, or night sweats. Positive for weight loss, loss of appetite NEUROLOGICAL: Denies headache, amaurosis fugax, motor weakness, sensory deficit, vertigo/spinning sensation, gait abnormalities, or tremors. ENT: No hearing loss, otalgia, otorrhea, rhinitis, rhinorrhea, hoarseness, or sore throat. CARDIOVASCULAR: Denies any exertional angina, dyspnea on exertion, orthopnea, paroxysmal nocturnal dyspnea, palpitations, life-threatening arrhythmias, claudication. PULMONARY: Denies any shortness of breath, cough, phlegm/sputum, hemoptysis, pleuritic chest pain. GASTROINTESTINAL: Denies any type of dysphagia to either liquids or solids. Denies nausea, vomiting, pyrosis, early satiety, abdominal pain, diarrhea, constipation, or changes in stool consistency or caliber. Denies coffee-ground emesis, hematemesis, hematochezia, or melanotic stools. GENITOURINARY: Denies frequency, urgency, nocturia, hematuria or incontinence (Storage/Irritative symptoms.) Low urinary stream, straining to void, urinary intermittency or hesitancy, splitting of the voiding stream, terminal dribbling. ENDOCRINOLOGIC: Denies polyuria, polydipsia, polyphagia or heat/cold intolerances. HEMATOLOGIC: Denies thrombophilia/previous clots, or coagulopathy/bleeding disorders. ONCOLOGIC: Denies personal history of malignancy. DERMATOLOGIC: Denies rashes or pruritus. PSYCHIATRIC: Denies any suicidal or homicidal ideation. Denies hallucinations. Musculoskeletal: positive for pain in knees bilaterally PHYSICAL EXAM GENERAL APPEARANCE: The patient is awake, alert, and oriented, in no acute cardiopulmonary distress. Patient appears very debilitated NEUROLOGICAL: Cranial nerves II-XII grossly intact. Motor is 5/5 in bilateral upper and lower extremities proximal to distal. No sensory deficits. HEENT: Face is symmetric. Pupils are equal and reactive. Extraocular movements are intact. He has bruising noted in the right orbital area of the face NECK: Supple. No JVD. No thyromegaly. No submental, submandibular, pre- /postauricular, occipital or supraclavicular lymphadenopathy. CHEST: Normal chest expansion. No Telemetry. LUNGS: Absence of any rales, rhonchi or any wheezing. CARDIOVASCULAR: Regular. S1 and S2 normal. No appreciable rubs, murmurs or gallops. ABDOMEN: Soft, nontender, and nondistended. There is no rebound, voluntary guarding, or rigidity. : Deferred. No Choi. EXTREMITIES: Non-edematous and not cyanotic. No clubbing. Good capillary refill. She has bruising noted in the knees bilateral SKIN: No skin breakdown. Vital Signs (last 8hr) Date Time Temp Pulse Resp B/P (MAP) Pulse Ox O2 Delivery O2 Flow Rate FiO2 12/21/24 08:00 98.2 74 19 146/67 97 Room Air 12/21/24 04:06 98.1 82 18 143/73 97 Room Air LABS: Laboratory: Test 12/21/24 06:35 12/20/24 19:27 12/20/24 06:14 Range/Units Whole Blood Glucose 100 70-110 MG/DL Bedside Glucose Comment Notified Nurse White Blood Count 7.9 4.8-10.8 K/uL Red Blood Count 4.01 4.00-5.50 MIL/uL Hemoglobin 10.3 L 12.0-16.0 g/dL Hematocrit 33.7 L 36-48 % Mean Corpuscular Volume 84.0 79-99 fL Mean Corpuscular Hemoglobin 25.7 L 27.0-33.0 pg Mean Corpuscular Hemoglobin Concent 30.6 L 32.0-36.0 g/dL Red Cell Distribution Width 15.1 11.0-15.5 % Platelet Count 324 130-400 K/uL Mean Platelet Volume 11.0 H 7.5-10.5 fL Immature Granulocyte % (Auto) 0.4 0-1 % Neutrophils (%) (Auto) 63.7 40.0-77.0 % Lymphocytes (%) (Auto) 28.0 21.0-51.0 % Monocytes (%) (Auto) 6.0 3.0-13.0 % Eosinophils (%) (Auto) 1.3 0.0-8.0 % Basophils (%) (Auto) 0.6 0.0-5.0 % Neutrophils # (Auto) 5.0 1.8-7.7 K/uL Lymphocytes # (Auto) 2.2 1.0-4.8 K/uL Monocytes # (Auto) 0.5 0.1-1.0 K/uL Eosinophils # (Auto) 0.10 0.00-0.70 K/uL Basophils # (Auto) 0.05 0.00-0.20 K/uL Absolute Immature Granulocyte (auto 0.03 0-1 K/uL Nucleated Red Blood Cells 0.0 0.0-0.19 % Sodium Level 142 136-145 mmol/L Potassium Level 4.2 3.5-5.1 mmol/L Chloride Level 106 101-111 mmol/L Carbon Dioxide Level 29 21-32 mmol/L Blood Urea Nitrogen 8 7-18 mg/dL Creatinine 0.4 L 0.5-1.0 mg/dL Glomerular Filtration Rate Calc 103 >90 mL/min Random Glucose 118 H 70-105 mg/dL Total Calcium 8.5 8.5-10.1 mg/dL Magnesium Level 1.80 1.80-2.40 mg/dL Total Bilirubin 0.3 0.2-1.0 mg/dL Aspartate Amino Transf (AST/SGOT) 39 H 10-37 U/L Alanine Aminotransferase (ALT/SGPT) 31 12-78 U/L Alkaline Phosphatase 180 H 50-136 U/L Total Creatine Kinase 463 #*H 21-232 U/L Total Protein 5.9 L 6.0-8.3 g/dL Albumin 2.6 L 3.5-5.0 g/dL Current Medications Medications (Trade) Dose Ordered Sig/Jessica Route PRN Reason Start Time Stop Time Status Last Admin Dose Admin Acetaminophen (TYLenol 500MG TAB) 500 mg Q6H PRN PO MILD PAIN (1-3) 12/16/24 17:00 01/15/25 16:59 12/21/24 09:07 500 MG Atorvastatin Calcium (LIPItor 10MG) 10 mg HS PO 12/17/24 21:00 12/17/24 07:54 DC Ceftriaxone Sodium (ROCEphine 1G INJ) 1 gm Q24H IVPB 12/16/24 16:30 12/20/24 08:49 DC 12/19/24 15:33 1 GM Dextrose (D50w) 50 ml AD PRN IV HYPOGLYCEMIA PROTOCOL 12/18/24 16:30 01/17/25 16:29 Enoxaparin Sodium (Lovenox) 30 mg DAILY SQ 12/18/24 09:00 12/18/24 09:35 DC Famotidine (Pepcid 20mg Vial) 20 mg BID IV 12/16/24 21:00 12/17/24 06:56 DC 12/16/24 20:25 20 MG Glucagon (Glucagon 1mg Kit) 1 mg AD PRN IM HYPOGLYCEMIA PROTOCOL 12/18/24 16:30 01/17/25 16:29 Home Med (Home Medication) (Calcium Carb & Cit/ Vitamin... DAILY PO 12/17/24 09:00 01/16/25 08:59 Hydralazine HCl (APRESOLine 20MG INJ) 10 mg Q6H PRN IV ADMINISTER FOR SBP > 150 12/19/24 09:30 01/18/25 09:29 Hydralazine HCl ([id number] TAB) 25 mg BID PO 12/19/24 21:00 01/18/25 20:59 12/21/24 09:01 25 MG Insulin Glargine (LANtus 100 UNITS/ML 10 ML VIAL) 64 units DAILY SQ 12/17/24 09:00 12/17/24 07:47 DC Insulin Human Lispro (HumaLOG LISpro 100 UNIT/ML 3ML) 6 unit DAILY SQ 12/17/24 09:00 12/17/24 07:47 DC Insulin Human Regular (humuLIN R 100 UNIT/ML 3ML) INSULIN SLIDING SCAL... ACHS SQ 12/16/24 21:00 01/15/25 20:59 12/20/24 17:56 3 UNIT Levofloxacin (LEvaquIN 750MG TAB) 750 mg Q24H PO 12/20/24 09:00 12/30/24 08:59 12/21/24 09:01 750 MG Levofloxacin/ Dextrose (LEvaquIN 750 MG/ D5W 150 ML) 750 mg Q24H IV 12/20/24 09:00 12/20/24 08:55 DC Lisinopril (Prinivil 10mg) 10 mg DAILY PO 12/17/24 09:00 01/16/25 08:59 12/21/24 09:01 10 MG Magnesium Sulfate 50 ml @ 0 mls/hr PROTOCOL IV 12/19/24 12:00 01/18/25 11:59 12/20/24 07:10 25 MLS/HR Magnesium Sulfate 50 ml @ 0 mls/hr PROTOCOL PRN IV hypomagnesemia 12/16/24 16:30 12/19/24 11:47 DC 12/19/24 04:57 25 MLS/HR Magnesium Sulfate (Magnesium 4gm Premix 100ml) 4 gm AD IV 12/18/24 07:30 12/18/24 07:12 DC Melatonin (Melatonin) 5 mg HS PRN PO INSOMNIA 12/20/24 00:00 01/19/25 00:00 12/20/24 21:34 5 MG Oxybutynin Chloride (ditROPAN XL) 10 mg DAILY PO 12/17/24 09:00 12/17/24 07:54 DC Pantoprazole Sodium (PROTonix 40MG TAB) 40 mg DAILY PO 12/17/24 09:00 01/16/25 08:59 12/21/24 09:01 40 MG Potassium Chloride 100 ml @ 100 mls/hr AD PRN IV POTASSIUM PROTOCOL 12/16/24 16:30 01/15/25 16:29 12/18/24 09:36 100 MLS/HR Potassium Chloride (K-Dur/Klor-Con 20meq) 20 meq AD PRN PO POTASSIUM PROTOCOL 12/16/24 16:30 01/15/25 16:29 Potassium Chloride (KCl 10% Elixir 20meq/15ml) 20 meq AD PRN PO POTASSIUM PROTOCOL 12/16/24 16:30 01/15/25 16:29 12/19/24 20:50 20 MEQ Sodium Chloride 1,000 ml @ 125 mls/hr Q8H IV 12/16/24 16:30 01/15/25 16:29 12/21/24 00:21 125 MLS/HR Sodium Chloride 1,000 ml @ 1,000 mls/hr Q1H STAT IV 12/16/24 15:31 12/16/24 16:30 DC 12/16/24 16:50 1,000 MLS/HR DIAGNOSTICS / RADIOLOGY: [ ] ASSESSMENT: Mechanical fall POA Rhabdomyolysis POA Acute Dehydration Acute Debility due to above Right facial orbital ecchymosis secondary to fall Mild troponin elevation likely in setting of rhabdomyolysis History of diabetes mellitus type 2 Unintentional weight loss Breast cancer Uncontrolled Hypertension Hyperlipidemia History of PVD Hypokalemia ATTESTATION BY PHYSICIAN I have seen and examined the patient. I reviewed the documentation, medical decision making, and treatment plan as noted by the mid-level provider above. I agree with the findings and plan of care. Shyanne Logan MD, [employer] Dec 21, 2024 10:58
[2024-12-21 12:00] VITALS: BP 109/58; PULSE 100; RESP 19; TEMP 99.5
[2024-12-21 12:10] VITALS: O2SAT 99
--- NOTE | 2024-12-21 12:34 | NUR ---
CM NOTE: ANGIE UNGER CM SPOKE TO SOLEDAD Dudley/ANGIE, INSURANCE DENIED SNF. CM SPOKE TO PT'S JAY RIGGINS AND DAUGHTER VINAY, MADE AWARE OF ABOVE. INFORMED DAUGHTER PT MAY HAVE POSSIBLE HOME HEALTH FOR PT INSTEAD AT HOME, BUT PT WILL NEED TO FOLLOW UP WITH PT'S PCP. DTR AGREEABLE, STATE WILL FOLLOW UP WITH DR PIZARRO FOR HOME HEALTH PT AT HOME. DAUGHTER MADE AWARE, ANTICIPATE DC HOME TODAY, DAUGHTER AGREEABLE. MARY TIDWELL MADE AWARE. PRIMARY NURSE WONG CARTER UDPATED. DCP HOME ONCE MD CLEARED. CM TO CONTINUE TO FOLLOW UP. Addendum: 12/21/24 at 1238 by ALANNA CONTRERAS LVN CM Amended: Links added.
[2024-12-21] MEDS ORDERED: HYDR25 PO (15:37)
[2024-12-21] MEDS ORDERED: LEVO750T68 PO (15:37)
--- NOTE | 2024-12-21 15:41 | DS ---
Discharge Summary Hospital Course Summary: DATE OF ADMISSION:[12/16/2024] DATE OF DISCHARGE:[12/20/2024] DISPOSITION:[Home] CONDITION:[Medically stable] CONSULTANTS:[Relay Worker] FOLLOW UP APPOINTMENTS:[PCP 2 to 3 days. 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 Patient lives by herself and states today while walking outside she she tripped on her fall and fell on her knees. Patient had presented to the ED yesterday for similar complaints. Patient's history is obtained from patient and from her daughter. Patient at the time tripped and fell and hit her head on the concrete. She came to the ED and underwent a CT head which showed no evidence of intracranial bleed. She was noted to have right frontal scalp contusion without evidence of fracture patient was discharged home for outpatient set up for retirement placement. Patient again fell today which was unwitnessed. She tripped on her foot and fell on her knees. She denied losing any consciousness, chest pain, palpitations, fever, chills, abdominal pain, nausea, denied any dysuria, changes in her bowel movement. She was noted to have bruising on the right orbital area. She states she has not been eating well at home. She has a history of breast cancer and sees oncologist and [place]. She is unable to recall his name. She does not use walker or cane for ambulation. Daughter was concerned since patient has been living alone and was trying to get outpatient follow up with her retirement for rehab. Secondary to recurrent fall she thereafter came to the hospital further evaluation. Additionally daughter states since last year patient has lost around 60 lb. Patient has noticed decreased appetite. She denies any melena, hematochezia, hematemesis On chart review patient was recently and was discharged on 12/11/2024. During hospitalization patient was ruled out for ACS. Patient for her diabetes has only been taking metformin. On her discharge summary she was noted to be on Tresiba 64 units, Humalog 6 units. Per patient she has not been taking insulin for more than a month. Her A1c during hospitalization was noted to be 7.8. She is currently only taking metformin. Labs in the ED were notable for white count of 15.3, hemoglobin was 12.1, platelet count was 338 K, sodium was 135, potassium was 3.4, creatinine was 0.5 Her troponin was 107, total CK was 4233 Patient is temperature on presentation was 98.1, heart rate was 74, blood pressure was 146/88, patient was saturating 99% on room air The patient underwent a CT head which was negative, cervical CT showed no fracture, CT maxillofacial showed no displaced fracture, patient underwent bilateral pelvis x-ray which was negative Throughout the hospitalization patient's was evaluated by surveying teacher and was started on new DM medications. On admission patient's CK was 4233 today is 463. Blood is growing Streptococcus hominis. Patient was placed on levofloxacin. Chest x-ray was negative. Head CT negative. Cervical spine CT negative. CT maxillofacial negative. Pelvis x-ray negative knee x-ray negative CT abdomen/pelvis showed diverticulosis large fecal material. 2D echo showed more than 70% stage I diastolic dysfunction. Today WBC is 7.9. Electrolytes replaced per protocol. Patient is cleared to be discharged to home Follow-up with PCP in 2 to 3 days. Follow up with the surveying teacher within one week. Procedure(s): REVIEW OF SYSTEMS CONSTITUTIONAL: Denies fevers, chills, or night sweats. Positive for weight loss, loss of appetite NEUROLOGICAL: Denies headache, amaurosis fugax, motor weakness, sensory deficit, vertigo/spinning sensation, gait abnormalities, or tremors. ENT: No hearing loss, otalgia, otorrhea, rhinitis, rhinorrhea, hoarseness, or sore throat. CARDIOVASCULAR: Denies any exertional angina, dyspnea on exertion, orthopnea, paroxysmal nocturnal dyspnea, palpitations, life-threatening arrhythmias, claudication. PULMONARY: Denies any shortness of breath, cough, phlegm/sputum, hemoptysis, pleuritic chest pain. GASTROINTESTINAL: Denies any type of dysphagia to either liquids or solids. Denies nausea, vomiting, pyrosis, early satiety, abdominal pain, diarrhea, constipation, or changes in stool consistency or caliber. Denies coffee-ground emesis, hematemesis, hematochezia, or melanotic stools. GENITOURINARY: Denies frequency, urgency, nocturia, hematuria or incontinence (Storage/Irritative symptoms.) Low urinary stream, straining to void, urinary intermittency or hesitancy, splitting of the voiding stream, terminal dribbling. ENDOCRINOLOGIC: Denies polyuria, polydipsia, polyphagia or heat/cold intolerances. HEMATOLOGIC: Denies thrombophilia/previous clots, or coagulopathy/bleeding disorders. ONCOLOGIC: Denies personal history of malignancy. DERMATOLOGIC: Denies rashes or pruritus. PSYCHIATRIC: Denies any suicidal or homicidal ideation. Denies hallucinations. Musculoskeletal: positive for pain in knees bilaterally PHYSICAL EXAM GENERAL APPEARANCE: The patient is awake, alert, and oriented, in no acute cardiopulmonary distress. Patient appears very debilitated NEUROLOGICAL: Cranial nerves II-XII grossly intact. Motor is 5/5 in bilateral upper and lower extremities proximal to distal. No sensory deficits. HEENT: Face is symmetric. Pupils are equal and reactive. Extraocular movements are intact. He has bruising noted in the right orbital area of the face NECK: Supple. No JVD. No thyromegaly. No submental, submandibular, pre- /postauricular, occipital or supraclavicular lymphadenopathy. CHEST: Normal chest expansion. No Telemetry. LUNGS: Absence of any rales, rhonchi or any wheezing. CARDIOVASCULAR: Regular. S1 and S2 normal. No appreciable rubs, murmurs or gallops. ABDOMEN: Soft, nontender, and nondistended. There is no rebound, voluntary guarding, or rigidity. : Deferred. No Choi. EXTREMITIES: Non-edematous and not cyanotic. No clubbing. Good capillary refill. She has bruising noted in the knees bilateral SKIN: No skin breakdown. Assessment/Plan: ASSESSMENT: Mechanical fall POA Rhabdomyolysis POA Acute Dehydration Acute Debility due to above Right facial orbital ecchymosis secondary to fall Mild troponin elevation likely in setting of rhabdomyolysis History of diabetes mellitus type 2 Unintentional weight loss Breast cancer Uncontrolled Hypertension Hyperlipidemia History of PVD Hypokalemia Home Medications: Reported Medications Lisinopril (Lisinopril) 10 Mg Tablet, 10 MG PO DAILY, TAB 12/27/21 Oxybutynin Chloride (Oxybutynin Chloride ER) 10 Mg Tab.er.24, 10 MG PO DAILY 12/27/21 Calcium Carb & Cit/Vitamin D3 (Calcium + D3 ER Tablet) 1 Each Tablet.er, 2 EACH PO DAILY, TAB 12/27/21 Clopidogrel Bisulfate (Clopidogrel) 75 Mg Tablet, 75 MG PO DAILY, TAB 12/27/21 Omeprazole (Omeprazole) 20 Mg Capsule.dr, 20 MG PO DAILY, CAP 12/27/21 Pravastatin Sodium (Pravastatin Sodium) 40 Mg Tablet, 40 MG PO HS, TAB 12/27/21 Metformin HCl (Metformin HCl) 500 Mg Tablet, 1000 MG PO BID, TAB 12/27/21 Insulin Lispro (Humalog) 100 Unit/1 Ml Insuln.pen, 6 UNITS SQ DAILY, SYRINGE 12/27/21 Insulin Degludec (Tresiba) 100 Unit/1 Ml Vial, 64 UNIT SQ DAILY, VIAL 12/27/21 Discontinued Scripts Lidocaine (Pain Relief Patch) 4 % Adh..patch, 1 EACH TP DAILY for 10 Days, #10 ADH.PATCH 2 Refills Prov:LENKA CLARK MD 12/11/24 Cefdinir (Cefdinir) 300 Mg Capsule, 1 CAP PO BID for 5 Days, #10 CAP 0 Refills Prov:LENKA CLARK MD 12/11/24 Acetaminophen with Codeine (Acetaminophen-Cod #3 Tablet) 300 Mg-30 Mg Tablet, 1 TAB PO Q6H PRN for PAIN LEVEL 2 TO 5, #20 TAB 0 Refills Prov:SIA KHANNA MD 11/19/24 Time spent arranging discharge: 31-60 minutes ATTESTATION BY PHYSICIAN I have seen and examined the patient. I reviewed the documentation, medical decision making, and treatment plan as noted by the mid-level provider above. I agree with the findings and plan of care. Shyanne Logan MD, [facility] CLINICAL LABORATORY MANAGER Dec 21, 2024 15:41
[2024-12-21 16:00] VITALS: BP 134/74; PULSE 88; RESP 19; TEMP 98
--- NOTE | 2024-12-21 16:01 | PN ---
endocrinology progress note Date of Service: Dec 21, 2024 subjective: hyperglycemia is improving REVIEW OF SYSTEMS CONSTITUTIONAL: Denies fevers, chills, or night sweats. Positive for weight loss, loss of appetite NEUROLOGICAL: Denies headache, amaurosis fugax, motor weakness, sensory deficit, vertigo/spinning sensation, gait abnormalities, or tremors. ENT: No hearing loss, otalgia, otorrhea, rhinitis, rhinorrhea, hoarseness, or sore throat. CARDIOVASCULAR: Denies any exertional angina, dyspnea on exertion, orthopnea, paroxysmal nocturnal dyspnea, palpitations, life-threatening arrhythmias, claudication. PULMONARY: Denies any shortness of breath, cough, phlegm/sputum, hemoptysis, pleuritic chest pain. GASTROINTESTINAL: Denies any type of dysphagia to either liquids or solids. Denies nausea, vomiting, pyrosis, early satiety, abdominal pain, diarrhea, constipation, or changes in stool consistency or caliber. Denies coffee-ground emesis, hematemesis, hematochezia, or melanotic stools. ENDOCRINOLOGIC: Denies polyuria, polydipsia, polyphagia or heat/cold intolerances. HEMATOLOGIC: Denies thrombophilia/previous clots, or coagulopathy/bleeding disorders. ONCOLOGIC: Denies personal history of malignancy. DERMATOLOGIC: Denies rashes or pruritus. PSYCHIATRIC: Denies any suicidal or homicidal ideation. Denies hallucinations. Musculoskeletal: positive for pain in knees bilaterally PAST MEDICAL HISTORY: Diabetes mellitus type 2, history breast cancer, history of PVD, hypertension, hyperlipidemia PAST SURGICAL HISTORY: History of peripheral intervention, right shoulder surgery, spine surgery, cataract surgery, tooth extraction PAST SOCIAL HISTORY: Currently denied any smoking, alcohol, drug use FAMILY HISTORY: Denied any pertinent family history Coded Allergies: No Known Allergies (Unverified Allergy, Unknown, 07/26/21) ASSESSMENT: DM-2, HBA1C 7.7% off insulin for 1 month. off glipizide. she takes metformin. denies any hypoglycemia at home. Mechanical fall POA Rhabdomyolysis POA Dehydration - improved Debility Right facial orbital ecchymosis secondary to fall Mild troponin elevation likely in setting of rhabdomyolysis Unintentional weight loss Breast cancer Hypertension Hyperlipidemia History of PVD Hypokalemia PLAN: continue low dose ssi monitor glucose qx6 hourly continue to hold insulin and glipizide at discharge. start tradjenta 5 mg daily and will need tradjenta 5 mg daily at discharge Vitals/Labs Vital Signs Date Time Temp Pulse Resp B/P (MAP) Pulse Ox O2 Delivery O2 Flow Rate FiO2 12/21/24 12:10 99 Room Air* 0 21 12/21/24 12:00 99.5 100 19 109/58 Medications Current Medications Sodium Chloride 1,000 ml @ 1,000 mls/hr Q1H STAT IV Last administered on 12/16/24at 16:50; Start 12/16/24 at 15:31; Stop 12/16/24 at 16:30; Status DC Famotidine 20 mg BID IV Last administered on 12/16/24at 20:25; Start 12/16/24 at 21:00; Stop 12/17/24 at 06:56; Status DC Sodium Chloride 1,000 ml @ 125 mls/hr Q8H IV Last administered on 12/21/24at 00:21; Start 12/16/24 at 16:30; Stop 01/15/25 at 16:29 Ceftriaxone Sodium 1 gm Q24H IVPB Last administered on 12/19/24at 15:33; Start 12/16/24 at 16:30; Stop 12/20/24 at 08:49; Status DC Potassium Chloride 100 ml @ 100 mls/hr AD PRN IV Last administered on 12/18/24at 09:36; Start 12/16/24 at 16:30; Stop 01/15/25 at 16:29 Potassium Chloride 20 meq AD PRN PO Last administered on 12/19/24at 20:50; Start 12/16/24 at 16:30; Stop 01/15/25 at 16:29 Potassium Chloride 20 meq AD PRN PO; Start 12/16/24 at 16:30; Stop 01/15/25 at 16:29 Magnesium Sulfate 50 ml @ 0 mls/hr PROTOCOL PRN IV Last administered on 12/19/24at 04:57; Start 12/16/24 at 16:30; Stop 12/19/24 at 11:47; Status DC Acetaminophen 500 mg Q6H PRN PO Last administered on 12/21/24at 09:07; Start 12/16/24 at 17:00; Stop 01/15/25 at 16:59 Insulin Human Regular INSULIN SLIDING SCAL... ACHS SQ Last administered on 12/20/24at 17:56; Start 12/16/24 at 21:00; Stop 01/15/25 at 20:59 Lisinopril 10 mg DAILY PO Last administered on 12/21/24at 09:01; Start 12/17/24 at 09:00; Stop 01/16/25 at 08:59 Home Med (Calcium Carb & Cit/ Vitamin... DAILY PO; Start 12/17/24 at 09:00; Stop 01/16/25 at 08:59 Insulin Glargine 64 units DAILY SQ; Start 12/17/24 at 09:00; Stop 12/17/24 at 07:47; Status DC Insulin Human Lispro 6 unit DAILY SQ; Start 12/17/24 at 09:00; Stop 12/17/24 at 07:47; Status DC Pantoprazole Sodium 40 mg DAILY PO Last administered on 12/21/24at 09:01; Start 12/17/24 at 09:00; Stop 01/16/25 at 08:59 Oxybutynin Chloride 10 mg DAILY PO; Start 12/17/24 at 09:00; Stop 12/17/24 at 07:54; Status DC Atorvastatin Calcium 10 mg HS PO; Start 12/17/24 at 21:00; Stop 12/17/24 at 07:54; Status DC Potassium Chloride 40 meq ONCE ONCE PO Last administered on 12/17/24at 10:44; Start 12/17/24 at 07:00; Stop 12/17/24 at 07:01; Status DC Potassium Chloride 40 meq ONCE ONCE PO Last administered on 12/17/24at 16:16; Start 12/17/24 at 16:00; Stop 12/17/24 at 16:01; Status DC Enoxaparin Sodium 30 mg DAILY SQ; Start 12/18/24 at 09:00; Stop 12/18/24 at 09:35; Status DC Magnesium Sulfate 4 gm AD IV; Start 12/18/24 at 07:30; Stop 12/18/24 at 07:12; Status DC Potassium Chloride 40 meq ONCE ONCE PO Last administered on 12/18/24at 07:19; Start 12/18/24 at 07:30; Stop 12/18/24 at 07:31; Status DC Potassium Chloride 20 meq ONCE ONCE PO Last administered on 12/18/24at 12:45; Start 12/18/24 at 12:00; Stop 12/18/24 at 12:01; Status DC Potassium Chloride 40 meq ONCE ONCE PO Last administered on 12/18/24at 21:48; Start 12/18/24 at 21:00; Stop 12/18/24 at 21:01; Status DC Lorazepam 0.5 mg ONCE ONCE IM Last administered on 12/18/24at 14:49; Start 12/18/24 at 15:00; Stop 12/18/24 at 15:01; Status DC Dextrose 50 ml STK-MED ONCE IV Last administered on 12/18/24at 16:40; Start 12/18/24 at 16:31; Stop 12/18/24 at 16:33; Status DC Dextrose 50 ml AD PRN IV; Start 12/18/24 at 16:30; Stop 01/17/25 at 16:29 Glucagon 1 mg AD PRN IM; Start 12/18/24 at 16:30; Stop 01/17/25 at 16:29 Haloperidol Lactate 2.5 mg ONCE ONCE IM Last administered on 12/18/24at 21:48; Start 12/18/24 at 19:30; Stop 12/18/24 at 20:01; Status DC Hydralazine HCl 10 mg Q6H PRN IV; Start 12/19/24 at 09:30; Stop 01/18/25 at 09:29 Magnesium Sulfate 50 ml @ 0 mls/hr PROTOCOL IV Last administered on 12/20/24at 07:10; Start 12/19/24 at 12:00; Stop 01/18/25 at 11:59 Hydralazine HCl 25 mg BID PO Last administered on 12/21/24at 09:01; Start 12/19/24 at 21:00; Stop 01/18/25 at 20:59 Melatonin 5 mg HS PRN PO Last administered on 12/20/24at 21:34; Start 12/20/24 a t 00:00; Stop 01/19/25 at 00:00 Melatonin 5 mg STK-MED ONCE PO Last administered on 12/20/24at 00:05; Start 12/19/24 at 23:50; Stop 12/19/24 at 23:56; Status DC Linagliptin 5 mg ONCE ONCE PO Last administered on 12/20/24at 11:45; Start 12/20/24 at 09:00; Stop 12/20/24 at 09:01; Status DC Levofloxacin/ Dextrose 750 mg Q24H IV; Start 12/20/24 at 09:00; Stop 12/20/24 at 08:55; Status DC Levofloxacin 750 mg Q24H PO Last administered on 12/21/24at 09:01; Start 12/20/24 at 09:00; Stop 12/30/24 at 08:59 CAMILLE JON MD Dec 21, 2024 16:01
[2024-12-22] MEDS ORDERED: LINA5TAB PO (16:10)
== END 2024-12-21 16:58 | disposition home health service (06) | DRG 605 ==
LOC: EDH 12:21 → EDHIP 16:27 → 4DH 20:55
PROVIDERS: ADMIT Internal Medicine; ATTEND Internal Medicine
DX: S00.03XA Contusion of scalp, initial encounter (principal); E87.1 Hypo-osmolality and hyponatremia; M62.82 Rhabdomyolysis; E86.0 Dehydration; E11.51 Type 2 diabetes mellitus with diabetic peripheral angiopathy without gangrene; E87.6 Hypokalemia; E11.65 Type 2 diabetes mellitus with hyperglycemia; R63.4 Abnormal weight loss; W01.0XXA Fall on same level from slipping, tripping and stumbling without subsequent striking against object, initial encounter; Y93.01 Activity, walking, marching and hiking; R79.89 Other specified abnormal findings of blood chemistry; D72.829 Elevated white blood cell count, unspecified; E78.5 Hyperlipidemia, unspecified; I10 Essential (primary) hypertension; Z79.4 Long term (current) use of insulin; Z79.84 Long term (current) use of oral hypoglycemic drugs; Z85.3 Personal history of malignant neoplasm of breast; Y92.098 Other place in other non-institutional residence as the place of occurrence of the external cause; Y99.8 Other external cause status; Z68.20 Body mass index [BMI] 20.0-20.9, adult
CPT/HCPCS: 36415; 70450; 70486; 71045; 72125; 72170; 73565; 74176; 80048; 80053; 81001; 82550; 82948; 83036; 83735; 84132; 84145; 84443; 84484; 85025; 85610; 85730; 86140; 87040; 87086; 87186; 87635; 87804; 93005; 93306; G0378; J0696; J1630; J1650; J1815; J2060; J3475; J3480; J3490; J7070; 73560

== ENCOUNTER 2024-12-22 12:20 | Emergency (ER) | payer MEDICARE ==
[~2024-12-22] VITALS: Ht 162.6 cm; Wt 53.5 kg
[~2024-12-22 12:20] MED LIST changes: -ACET-2079 PO; -CEFD300C3 PO; +HYDR25 PO; +LEVO750T68 PO; -LIDO-112 TP
--- NOTE | 2024-12-22 12:46 | NUR ---
ABOUT TO TRIAGE PT BUT HAS BEEN TRANSFERRED TO CT
--- NOTE | 2024-12-22 13:23 | HMCIMG ---
CT HEAD/BRAIN W/O CONTRAST INDICATION: head injury TECHNIQUE: CT HEAD/BRAIN W/O CONTRAST. CT was performed with one or more of the following dose reduction techniques: Automated exposure control, adjustment of the mA and/or kV according to the patient's size, or use of the iterative reconstruction technique. Comparison: None FINDINGS: Acute right subdural hematoma is seen measuring up to 6 mm in thickness. There is mass effect with 3 mm midline shift to the left. Diffuse atrophy and nonspecific white matter changes are seen. Right scalp soft tissue swelling/hematoma is noted. The visualized paranasal sinuses and mastoid air cells are normally aerated. IMPRESSION: Acute right subdural hematoma is seen measuring up to 6 mm in thickness. There is mass effect with 3 mm midline shift to the left. Diffuse atrophy and nonspecific white matter changes are seen. Right scalp soft tissue swelling/hematoma is noted. Critical findings discussed with the clinical team on 12/22/2024 1:20 PM [facility] [employer] . ER physician.
--- NOTE | 2024-12-22 13:36 | NUR ---
TRANSFER REQUEST INITIATED WITH [facility].
--- NOTE | 2024-12-22 13:37 | ERN ---
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 Family reports head injury, but denies any LOC, vomiting or any other associated symptoms at this time. As per family, patient lost her balance. Allergies: Coded Allergies: No Known Allergies (Unverified Allergy, Unknown, 07/26/21) Home Meds Active Scripts Linagliptin (Tradjenta) 5 Mg Tablet, 5 MG PO DAILY, #30 TAB Prov:LEIGHANNINDERSidNAKUL B [employer]KE PRODUCTION HEATER 12/22/24 Levofloxacin (Levaquin 750Mg Tabs) 750 Mg Tablet, 750 MG PO Q24H, #10 TAB Prov:LEIGHANNCLAU RODRIGUEZYNA B [employer]KE PRODUCTION HEATER 12/21/24 Hydralazine HCl (Apresoline) 25 Mg Tab, 25 MG PO BID, #60 TAB Prov:OFCLAU RODRIGUEZYNA B [employer]KE PRODUCTION HEATER 12/21/24 Reported Medications Lisinopril (Lisinopril) 10 Mg Tablet, 10 MG PO DAILY, TAB 12/27/21 Oxybutynin Chloride (Oxybutynin Chloride ER) 10 Mg Tab.er.24, 10 MG PO DAILY 12/27/21 Calcium Carb & Cit/Vitamin D3 (Calcium + D3 ER Tablet) 1 Each Tablet.er, 2 EACH PO DAILY, TAB 12/27/21 Clopidogrel Bisulfate (Clopidogrel) 75 Mg Tablet, 75 MG PO DAILY, TAB 12/27/21 Omeprazole (Omeprazole) 20 Mg Capsule.dr, 20 MG PO DAILY, CAP 12/27/21 Pravastatin Sodium (Pravastatin Sodium) 40 Mg Tablet, 40 MG PO HS, TAB 12/27/21 Metformin HCl (Metformin HCl) 500 Mg Tablet, 1000 MG PO BID, TAB 12/27/21 Discontinued Reported Medications Insulin Lispro (Humalog) 100 Unit/1 Ml Insuln.pen, 6 UNITS SQ DAILY, SYRINGE 12/27/21 Insulin Degludec (Tresiba) 100 Unit/1 Ml Vial, 64 UNIT SQ DAILY, VIAL 12/27/21 Discontinued Scripts Lidocaine (Pain Relief Patch) 4 % Adh..patch, 1 EACH TP DAILY for 10 Days, #10 ADH.PATCH 2 Refills Prov:LENKA CLARK MD 12/11/24 Cefdinir (Cefdinir) 300 Mg Capsule, 1 CAP PO BID for 5 Days, #10 CAP 0 Refills Prov:LENKA CLARK MD 12/11/24 Acetaminophen with Codeine (Acetaminophen-Cod #3 Tablet) 300 Mg-30 Mg Tablet, 1 TAB PO Q6H PRN for PAIN LEVEL 2 TO 5, #20 TAB 0 Refills Prov:SIA KHANNA MD 11/19/24 Past Medical History Past Medical History: Cancer, Hypertension Additional Past Medical Hx: FALLS, PENDING NH PLACEMENT 12.16.2024 Surgical History: Cholecystectomy, Other Surgical History Other: R MASECTOMY, SPINAL SURGERY Family History: Negative Social History: Negative History: Not Applicable Review of System Dictation Constitutional: Negative for fever,chills, and weight loss Eyes: Negative for injury, pain,redness, and discharge ENT: Negative for injury,pain or swelling Cardiovascular: Negative for chest pain, palpitations, and edema Respiratory: Negative for shortness of breath, cough, and wheezing, Abdomen/GI: Negative for abdominal pain, nausea, vomiting, diarrhea, and constipation Back: Negative for injury and pain : Negative for injury, bleeding and discharge MS/Extremity: Negative for injury and deformity Skin: Negative for rash, and discoloration Neuro: Positive for head injury Negative for headache, weakness, numbness, tingling, and seizure Psych: Negative for suicide ideation, homicidal ideation, and hallucinations Initial Vital Sign VS Vital Signs Date Time Temp Pulse Resp B/P (MAP) Pulse Ox O2 Delivery O2 Flow Rate FiO2 12/22/24 13:54 98.6 83 16 178/80 Room Air 12/22/24 13:57 98 0 21 Physical Exam Dictation General: awake, alert, NAD Head/Face: Normocephalic, right facial ecchymosis Eyes: PERRL, EOMI, vision at baseline ENT: oral cavity clear, TMs clear, no signs of infection Neck: Trachea midline, supple, no nuchal rigidity Cardiovascular: RRR, normal S1/S2, No MRGs, no JVD Respiratory: CTAB, no respiratory distress, No rales or wheezes Abdomen: Soft, non-tender, non-distended, normal bowel sounds, no guarding or rebound. Skin: Warm, dry, normal turgor, no rash MS/Extremity: Pulses equal, no cyanosis, neurovascular intact, FROM Neuro: COAx4, GCS 15, strength 5/5, CN 2-12 intact, normal cerebellar exam, normal gait, Psych: Normal behavior, mood, and affect normal Results (Laboratory/Radiology) Laboratory/Radiology Laboratory Tests Test 12/22/24 13:57 White Blood Count 11.1 K/uL (4.8-10.8) H Red Blood Count 4.39 MIL/uL (4.00-5.50) Hemoglobin 11.4 g/dL (12.0-16.0) L Hematocrit 36.7 % (36-48) Mean Corpuscular Volume 83.6 fL (79-99) Mean Corpuscular Hemoglobin 26.0 pg (27.0-33.0) L Mean Corpuscular Hemoglobin Concent 31.1 g/dL (32.0-36.0) L Red Cell Distribution Width 15.3 % (11.0-15.5) Platelet Count 361 K/uL (130-400) Mean Platelet Volume 10.8 fL (7.5-10.5) H Immature Granulocyte % (Auto) 0.7 % (0-1) Neutrophils (%) (Auto) 78.6 % (40.0-77.0) H Lymphocytes (%) (Auto) 13.3 % (21.0-51.0) L Monocytes (%) (Auto) 6.5 % (3.0-13.0) Eosinophils (%) (Auto) 0.4 % (0.0-8.0) Basophils (%) (Auto) 0.5 % (0.0-5.0) Neutrophils # (Auto) 8.7 K/uL (1.8-7.7) H Lymphocytes # (Auto) 1.5 K/uL (1.0-4.8) Monocytes # (Auto) 0.7 K/uL (0.1-1.0) Eosinophils # (Auto) 0.04 K/uL (0.00-0.70) Basophils # (Auto) 0.05 K/uL (0.00-0.20) Absolute Immature Granulocyte (auto 0.08 K/uL (0-1) Nucleated Red Blood Cells 0.0 % (0.0-0.19) Prothrombin Time 10.1 SEC (9.6-11.6) Prothromb Time International Ratio <= 0.93 (0.85-1.15) Activated Partial Thromboplast Time 25.4 SEC (26.3-35.5) L Sodium Level 137 mmol/L (136-145) Potassium Level 4.3 mmol/L (3.5-5.1) Chloride Level 98 mmol/L (101-111) L Carbon Dioxide Level 32 mmol/L (21-32) Blood Urea Nitrogen 10 mg/dL (7-18) Creatinine 0.5 mg/dL (0.5-1.0) Glomerular Filtration Rate Calc 97 mL/min (>90) Random Glucose 165 mg/dL (70-105) H Total Calcium 9.1 mg/dL (8.5-10.1) Troponin I High Sensitivity 9 ng/L (4-50) Labs Reviewed?: Yes EKG Comment: EKG 12/22/2024 time 2:06 p.m. ventricular rate 89, IN 157, QRS D 89, QT 362. Sinus rhythm, probable left atrial enlargement. No STEMI CT Scan Comment: CHRISTINE: head injury ORDERING PHYSICIAN: MONICA CARTAGENA MD PROCEDURE: HEAD WO - CT HEAD/BRAIN W/O CONTRAST CT HEAD/BRAIN W/O CONTRAST INDICATION: head injury TECHNIQUE: CT HEAD/BRAIN W/O CONTRAST. CT was performed with one or more of the following dose reduction techniques: Automated exposure control, adjustment of the mA and/or kV according to the patient's size, or use of the iterative reconstruction technique. Comparison: None FINDINGS: Acute right subdural hematoma is seen measuring up to 6 mm in thickness. There is mass effect with 3 mm midline shift to the left. Diffuse atrophy and nonspecific white matter changes are seen. Right scalp soft tissue swelling/hematoma is noted. The visualized paranasal sinuses and mastoid air cells are normally aerated. IMPRESSION: Acute right subdural hematoma is seen measuring up to 6 mm in thickness. There is mass effect with 3 mm midline shift to the left. Diffuse atrophy and nonspecific white matter changes are seen. Right scalp soft tissue swelling/hematoma is noted. Critical findings discussed with the clinical team on 12/22/2024 1:20 PM FORGING DIE SINKER . ER physician. DICTATED BY: PRISCA PATTON MD DATE: 12/22/24 1317 REASON: AMS ORDERING PHYSICIAN: MONICA CARTAGENA MD PROCEDURE: HEAD WO - CT HEAD/BRAIN W/O CONTRAST CT HEAD/BRAIN W/O CONTRAST INDICATION: AMS TECHNIQUE: CT HEAD/BRAIN W/O CONTRAST. CT was performed with one or more of the following dose reduction techniques: Automated exposure control, adjustment of the mA and/or kV according to the patient's size, or use of the iterative reconstruction technique. Comparison: None FINDINGS: Acute right subdural hematoma is seen measuring 1.6 cm in thickness. There is mass effect with effacement of the lateral ventricles and midline shift to the left of approximately 6.7 mm. Diffuse atrophy and nonspecific white matter changes are noted. Right scalp soft tissue swelling/hematoma is noted. The visualized paranasal sinuses and mastoid air cells are normally aerated. IMPRESSION: Acute right subdural hematoma is seen measuring 1.6 cm in thickness. There is mass effect with effacement of the lateral ventricles and midline shift to the left of approximately 6.7 mm. Diffuse atrophy and nonspecific white matter changes are noted. Right scalp soft tissue swelling/hematoma is noted. DICTATED BY: PRISCA PATTON MD DATE: 12/22/24 1558 ELECTRONICALLY SIGNED BY: PRISCA PATTON MD DATE: 12/22/24 1602 ED Course ED Course Orders Procedure Category Date Status Time Ct Head/Brain W/O CT 12/22/24 Resulted Contrast 12:27 12 Lead Ekg Tracing- EKG 12/22/24 Complete Technical 13:22 Cbc With Differential LAB 12/22/24 Complete 13:22 Basic Metabolic Panel LAB 12/22/24 Complete 13:22 Pt And Ptt LAB 12/22/24 Complete 13:22 Troponin I High LAB 12/22/24 Complete Sensitivity 13:22 Chest 1vw RAD 12/22/24 Resulted 13:22 Ct Cervical Spine W/O CT 12/22/24 Resulted Contrast 13:55 Ct Chest/Abd/Pelv CT 12/22/24 Resulted W/Conrast 13:55 Levetiracetam 500 PHA 12/22/24 Complete Mg/5 Ml Sd V (Keppra 5 14:00 Nicardipine 25mg Inj PHA 12/22/24 Complete (Cardene 25mg Inj) 14:00 Nicardipine 25mg Inj PHA 12/22/24 Complete (Cardene 25mg Inj) 13:57 Levetiracetam 500 PHA 1/26/25 Complete Mg/5 Ml Sd V (Keppra 5 13:57 Levetiracetam 500 PHA 12/22/24 Complete Mg/5 Ml Sd V (Keppra 5 14:00 Etomidate 20mg Vial PHA 12/22/24 Complete (Amidate 20mg Vial) 15:04 Etomidate 20mg Vial PHA 12/22/24 Complete (Amidate 20mg Vial) 15:30 Propofol 1000 Mg/100 PHA 12/22/24 Complete Ml (Diprivan 1000mg 15:30 Midazolam 100mg-0.9% PHA 12/22/24 Complete Ns 100ml (Midazolam 15:30 Rocuronium Palmer PHA 12/22/24 Complete (Zemuron) 15:04 Propofol 1000 Mg/100 PHA 12/22/24 Complete Ml (Diprivan 1000mg 15:05 Rocuronium Palmer PHA 12/22/24 Complete (Zemuron) 15:30 Chest 1vw RAD 12/22/24 Resulted 15:15 Ct Head/Brain W/O CT 12/22/24 Resulted Contrast 15:16 Iohexol (Omnipaque) PHA 12/22/24 Complete 15:28 Mannitol 25% 50ml PHA 12/22/24 Complete Vial (Mannitol 25% 50m 16:00 Mannitol 20% 500ml PHA 12/22/24 Complete Bag (Osmitrol 20% 500 16:30 Mannitol 20% 500ml PHA 12/22/24 Complete Bag (Osmitrol 20% 500 16:11 Current Medications Medications (Trade) Dose Ordered Sig/Jessica Route PRN Reason Start Time Stop Time Status Last Admin Dose Admin Etomidate (Amidate 20mg Vial) 20 mg ONCE ONCE IVP 12/22/24 15:30 12/22/24 15:31 DC 12/22/24 15:12 Etomidate (Amidate 20mg Vial) 20 mg STK-MED ONCE .ROUTE 12/22/24 15:04 12/22/24 15:04 DC 12/22/24 15:12 Iohexol (Omnipaque) 75 ml STK-MED ONCE IV 12/22/24 15:28 12/22/24 15:33 DC Levetiracetam (kepPRA 500 MG/5 ML SD VIAL) 500 mg STK-MED ONCE IV 12/22/24 13:57 12/22/24 13:58 DC Levetiracetam (kepPRA 500 MG/5 ML SD VIAL) 1,000 mg ONCE IV 12/22/24 14:00 12/22/24 13:58 DC Levetiracetam (kepPRA 500 MG/5 ML SD VIAL) 1,000 mg ONCE ONCE IV 12/22/24 14:00 12/22/24 14:01 DC 12/22/24 14:00 Mannitol 500 ml @ As Directed STK-MED ONCE IV 12/22/24 16:11 12/22/24 16:11 DC Mannitol (Mannitol 25% 50ml Vial) 50 gm ONCE IV 12/22/24 16:00 12/22/24 16:10 DC Mannitol (Osmitrol 20% 500ml Bag) 50 gm ONCE ONCE IV 12/22/24 16:30 12/22/24 16:31 DC 12/22/24 16:30 Midazolam HCl (Midazolam 100mg-0.9% NS 100ml) 100 ml ONCE ONCE IV 12/22/24 15:30 12/22/24 15:31 DC 12/22/24 15:28 Nicardipine HCl (CarDENE 25MG INJ) 25 mg STK-MED ONCE IV 12/22/24 13:57 12/22/24 13:58 DC Nicardipine HCl 25 mg/Sodium Chloride 250 ml @ 0 mls/hr PROTOCOL IV 12/22/24 14:00 12/22/24 17:45 DC 12/22/24 13:58 Propofol 100 ml @ As Directed STK-MED ONCE IV 12/22/24 15:05 12/22/24 15:05 DC 12/22/24 15:31 Propofol (DIPRivan 1000MG/ 100ML) 1,000 mg PROTOCOL PRN IV SEDATION 12/22/24 15:30 12/22/24 17:45 DC Rocuronium Palmer (ZemuRON) 50 mg ONCE ONCE IV 12/22/24 15:30 12/22/24 15:31 DC 12/22/24 15:12 Rocuronium Palmer (ZemuRON) 50 mg STK-MED ONCE .ROUTE 12/22/24 15:04 12/22/24 15:04 DC 12/22/24 15:12 Vital Signs Date Time Temp Pulse Resp B/P (MAP) Pulse Ox O2 Delivery O2 Flow Rate FiO2 12/22/24 16:28 98.8 103 16 129/76 100 Ventilator+ 100 12/22/24 16:19 98.6 106 22 130/77 Ventilator+ 100 12/22/24 16:16 98.6 108 22 144/71 Ventilator+ 100 12/22/24 16:10 109 19 134/80 Ventilator+ 0 100 12/22/24 16:06 98.6 110 22 150/88 Ventilator+ 100 12/22/24 15:57 98.6 108 22 157/83 100 Ventilator+ 100 12/22/24 15:31 98.6 112 22 171/57 Ventilator+ 100 12/22/24 15:22 98.6 134 22 155/77 Ventilator+ 98 12/22/24 15:18 98.6 134 22 155/77 Ventilator+ 98 12/22/24 15:14 100 12/22/24 15:13 98.6 134 22 151/62 Ventilator+ 98 12/22/24 15:09 98.6 110 20 151/62 Room Air* 0 12/22/24 15:01 98.6 122 20 164/75 Room Air* 0 12/22/24 14:55 98.6 122 20 181/95 Room Air* 0 12/22/24 14:54 98.6 122 20 200/102 98 Room Air* 0 12/22/24 14:48 98.6 118 18 200/102 Room Air* 0 12/22/24 14:46 98.6 118 18 185/91 Room Air* 0 12/22/24 14:25 98.6 99 18 145/72 Room Air* 0 12/22/24 14:17 98.6 95 18 135/70 96 Room Air* 0 12/22/24 14:11 98.6 89 18 178/80 Room Air* 0 12/22/24 14:10 98.6 89 18 168/80 Room Air* 0 12/22/24 13:58 110 178/98 12/22/24 13:57 89 18 178/80 98 Room Air* 0 12/22/24 13:54 98.6 83 16 178/80 Room Air Medical Decision Making MDM MDM: Differential diagnosis: Fall, head injury, subdural hematoma 1320- spoke to radiologist about head CT showing subdural hematoma 1321- called for a trauma transfer at this time 1345- transfer center Dr. Pate Trauma Surgeon- will talk to neurosurgeon to see if she can accept patient for ER to ER transfer 1350- Patient was accepted at [facility] 1451- Patient has had acute change in mental status becoming confused and restless. Will provide airway protection. 1554- [place] at [facility] [place] they do not have the capacity to take the patient 1611- [facility] transfer center, accept patient for ER to ER transfer. 1618- Dr. Duran ER physician and Dr. Barron trauma surgeon accept patient Rationale: Tests considered and ordered secondary to shared decision making include: labs, ECG and radiology Previous outside records reviewed: Old ER visits. Risk of complication and/or morbidity or mortality of patient management: None Medications-Per medication reconciliation Need for hospitalization: Patient does meet criteria for hospitalization. Patient will be transferred out of facility Need for emergency major/minor surgery: No There are no social concerns with this patient. Patient's prior external medical records from other ER visits were reviewed by me as indicated. Prior testing and results from previous visits were reviewed. Prior tests were taken into account with medical decision making and resource utilization, independent historian/historians were used to obtain complete medical history. I independently interpreted the test that were performed, results were reviewed by me and considered findings on radiology if ordered. Medical management and examination interpretation discussions were had by me with other qualified healthcare professionals as indicated for the patient's care. Status update on patient at 4:03 p.m., patient had a significant mental status change becoming altered and restless in bed requiring airway protection patient was intubated with rapid sequence intubation post x-ray stable, x-ray stable, patient was taken back to CT scan while pending transfer CT of the head shows significant change in worsening of subdural hematoma with mass effect and compression of the right 3rd and 4th ventricle, status was called back to the Trauma Center [facility] again the neurosurgeon and trauma surgeon are amenable with taking the patient and going directly to the OR however the transfer center congressional representative stated that there was no available bed space at [facility] to accept the patient at this time. We advised the transfer center that we would look for another trauma center to take this patient due to the uncertainty of timeframe in which the capacity would be available to accept transfer. Spoke to [facility] which accepted the patient ER to ER stat code 3 transfer for neurosurgical evaluation and surgery. [facility] called back at 4:18 p.m. reporting that they now had space and are willing to take the patient they reported that the surgeon and trauma team accepted the patient at 1:48 p.m. however the facility gave availability at 4:18 p.m.. EMS called code 3 Procedure Time of Intubation: 15:14 Intubation Method: orotracheal Tube Size (cm): 7.5 (22 at lips) Medications: Versed (Etomidate and rocuronium) Breath Sounds after Intubation: equal Intubation Complications: no complications Post Intubation Xray: Yes Critical Care Note Critical Time: other (Total critical care time was 33 minutes. Excluding time for procedures. Management of critically ill patient with concern for acute decompensation. Management included interpretation of laboratory values and imaging, hemodynamics, time for consultation with consultants and admitting physician.) DX & DISP Disposition: Transfer ([place]gent transfer [place] [facility] Decision to Admit Date: Dec 22, 2024 Decision to Admit Time: 13:50 Departure Impression: Primary Impression: Subdural bleeding Additional Impressions: Fall, Head injury Condition: Critical Referrals: DAMARIS PIZARRO MD (PCP) MONICA CARTAGENA MD Dec 22, 2024 13:37
--- NOTE | 2024-12-22 13:38 | NUR ---
AWAITING FOR PT, NOT BACK FROM CT
--- NOTE | 2024-12-22 13:53 | NUR ---
PT'S DAUGHETR STATES PT WAS ACTUALLY IN LOBBY BUT DID NOT KNOW. PT WAS CALLED MULTIPLE TIMES BUT NO ANSWER. PT NOW IN ROOM 15 AND TRIAGE ASSESSMENT DONE NOW.
[2024-12-22] MEDS: niCARDIpine 25MG INJ IV ONE (13:57)
[2024-12-22] MEDS: leveTIRACEtam 500 MG/5 ML SD VIAL IV ONE ×2 (13:57→14:00)
[2024-12-22] MEDS: niCARDIpine 25MG INJ 25 MG in 0.9% NACL 250ML 240 ML IV SCH (13:58)
[2024-12-22] MEDS ORDERED: leveTIRACEtam 500 MG/5 ML SD VIAL IV SCH (14:00)
[2024-12-22 14:06] LABS: BASOPHILS # (AUTO) 0.05 K/uL (0.00-0.20); BASOPHILS % (AUTO) 0.5 % (0.0-5.0); EOSINOPHILS # (AUTO) 0.04 K/uL (0.00-0.70); EOSINOPHILS % (AUTO) 0.4 % (0.0-8.0); HEMATOCRIT 36.7 % (36-48); IMMATURE GRANULOCYTE ABSOLUTE 0.08 K/uL (0-1); LYMPHOCYTES # (AUTO) 1.5 K/uL (1.0-4.8); LYMPHOCYTES % (AUTO) 13.3 % (21.0-51.0); MEAN CORPUSCULAR HGB CONC 31.1 g/dL (32.0-36.0); MEAN CORPUSCULAR VOLUME 83.6 fL (79-99); MONOCYTES # (AUTO) 0.7 K/uL (0.1-1.0); MONOCYTES % (AUTO) 6.5 % (3.0-13.0); NEUTROPHILS # (AUTO) 8.7 K/uL (1.8-7.7); NEUTROPHILS % (AUTO) 78.6 % (40.0-77.0); PLATELET COUNT (AUTO) 361 K/uL (130-400); RED BLOOD CELL COUNT(AUTO) 4.39 MIL/uL (4.00-5.50); RED CELL DISTRIBUTION WIDTH 15.3 % (11.0-15.5); WHITE BLOOD COUNT (AUTO) 11.1 K/uL (4.8-10.8)
[2024-12-22 14:16] LABS: INR <= 0.93 (0.85-1.15); PROTHROMBIN TIME 10.1 SEC (9.6-11.6)
[2024-12-22 14:17] LABS: PARTIAL THROMBOPLASTIN TIME 25.4 SEC (26.3-35.5)
[2024-12-22 14:18] LABS: CREATININE 0.5 mg/dL (0.5-1.0); POTASSIUM 4.3 mmol/L (3.5-5.1)
--- NOTE | 2024-12-22 15:10 | NUR ---
STOP DAVID IV AT 1510 STARTING INTUBATION NOW 1510
[2024-12-22] MEDS: ETOMIDATE 20MG VIAL ONE (15:12)
[2024-12-22] MEDS: ETOMIDATE 20MG VIAL IVP ONE (15:12)
[2024-12-22] MEDS: rocuRONium bROMide 10MG/1ML 5ML VL IV ONE (15:12)
[2024-12-22] MEDS: rocuRONium bROMide 10MG/1ML 5ML VL ONE (15:12)
[2024-12-22 15:14] VITALS: O2SAT 99
[2024-12-22] MEDS: MIDAZOLAM 100MG-0.9% NS 100ML 100ML BAG IV ONE (15:28)
[2024-12-22] MEDS ORDERED: IOHEXOL-350 75 ML VIAL IV ONE (15:28)
[2024-12-22] MEDS ORDERED: proPOFol 1000 MG/100 ML IV PRN (15:30)
[2024-12-22] MEDS: proPOFol 1000 MG/100 ML 100 ML IV ONE (15:31)
--- NOTE | 2024-12-22 15:32 | NUR ---
1510 INTUBATION STARTS, 1514 PT INTUBATED SUCCESSFULLY TUBE IN PLACE AND SECURED, VITALS STABLE DOCTOR AT BEDSIDE. 1515 PT PLACED ON VENT SETTINGS: RATE 16 450 TIDAL AT 100% PT TRANSFERRED TO RADIOLOGY DEPT VIA STRETCHER DANDRE, WATLER CARTER AND LUC LA TECH AT TRANSFERRED.
--- NOTE | 2024-12-22 15:59 | HMCIMG ---
INDICATION: FOR TUBE PLACEMENT TECHNIQUE: CHEST 1VW COMPARISON: 12/22/2024 FINDINGS/IMPRESSION: Prominent bilateral interstitial markings which may represent bronchitis or vascular congestion in the proper clinical setting. Endotracheal tube terminates approximately 3.3 cm above the tommy. Enteric tube terminates in the stomach. Stable cardiac silhouette. Mild degenerative changes of the spine. The visualized upper abdomen appears unremarkable.
[2024-12-22] MEDS ORDERED: MANNITOL 25% 50ML VIAL IV SCH (16:00)
--- NOTE | 2024-12-22 16:00 | HMCIMG ---
INDICATION: fall TECHNIQUE: CHEST 1VW COMPARISON: 12/16/2024 FINDINGS/IMPRESSION: Prominent bilateral interstitial markings which may represent bronchitis or vascular congestion in the proper clinical setting. Mild cardiomegaly Stable osseous structures. The visualized upper abdomen appears unremarkable.
--- NOTE | 2024-12-22 16:02 | HMCIMG ---
CT HEAD/BRAIN W/O CONTRAST INDICATION: AMS TECHNIQUE: CT HEAD/BRAIN W/O CONTRAST. CT was performed with one or more of the following dose reduction techniques: Automated exposure control, adjustment of the mA and/or kV according to the patient's size, or use of the iterative reconstruction technique. Comparison: None FINDINGS: Acute right subdural hematoma is seen measuring 1.6 cm in thickness. There is mass effect with effacement of the lateral ventricles and midline shift to the left of approximately 6.7 mm. Diffuse atrophy and nonspecific white matter changes are noted. Right scalp soft tissue swelling/hematoma is noted. The visualized paranasal sinuses and mastoid air cells are normally aerated. IMPRESSION: Acute right subdural hematoma is seen measuring 1.6 cm in thickness. There is mass effect with effacement of the lateral ventricles and midline shift to the left of approximately 6.7 mm. Diffuse atrophy and nonspecific white matter changes are noted. Right scalp soft tissue swelling/hematoma is noted.
--- NOTE | 2024-12-22 16:04 | HMCIMG ---
CT CERVICAL SPINE W/O CONTRAST HISTORY: fall TECHNIQUE: CT CERVICAL SPINE W/O CONTRAST. Sagittal and coronal images were produced. CT was performed with one or more of the following dose reduction techniques: Automated exposure control, adjustment of the mA and/or kV according to the patient's size, or use of the iterative reconstruction technique. FINDINGS: Evaluation of the cord and discs is limited with CT. No evidence of acute displaced fracture or dislocation. The lateral masses of C1 align with C2. No prevertebral soft tissue swelling. There is diffuse osteopenia degraded evaluation of the study. Multilevel degenerative changes are noted Soft tissues of the neck are grossly within normal limits. This study cannot exclude ligamentous injury. IMPRESSION: No evidence of displaced cervical spine fracture or dislocation. Correlate clinically. There is diffuse osteopenia degraded evaluation of the study. Multilevel degenerative changes are noted
[2024-12-22] MEDS ORDERED: LINA5TAB PO (16:10)
[2024-12-22 16:28] VITALS: BP 129/76; PULSE 103; RESP 16; TEMP 98.8; O2SAT 100
[2024-12-22] MEDS: MANNITOL 20% 500 ML IV.SOLN IV ONE (16:30)
[2024-12-22] MEDS: MANNITOL 20% 500ML BAG 500 ML IV ONE (16:31)
--- NOTE | 2024-12-22 16:58 | EKG ---
[facility] Test Date: 2024-12-22 Test Time: 14:06:33 Pat Name: KERWIN MRORISSEY Department: ED Room: Gender: F [employer]borne Operations: 3229 : 1950 Requested By: MONICA CARTAGENA Order Number: [id number] Reading MD: Kristy Beavers Measurements Intervals [place] Rate: 89 P: 37 NV: 157 QRS: 14 QRSD: 89 T: 36 QT: 362 QTc: 440 Interpretive Statements Sinus rhythm Probable left atrial enlargement Compared to ECG 12/16/2024 12:45:55 ST (T wave) deviation no longer present Electronically Signed On 12-23-2024 16:07:54 FIELD PROFESSIONAL by Kristy Beavers Please click the below link to view image of tracing.
--- NOTE | 2024-12-22 17:02 | NUR ---
1700 REPORT GIVEN TO JAI CARTER AT 1703, PT STABLE NO DISTRESS VITALS WNL PERRAMITORS. PT TANSPORTED BY EMS DRIP MECIATIONS CONTINUOUS AND VENTED. DAUGHTER AWARE AT PT SIDE FOR TRANSFER. PT OUT OF DOOR BY EMS UTILITY TRACTOR OPERATOR AT 1705.
--- NOTE | 2024-12-23 15:05 | HMCIMG ---
CT CHEST WITHOUT CONTRAST. CT ABDOMEN WITHOUT CONTRAST. CT PELVIS WITHOUT CONTRAST INDICATION: Fall; No specific site of pain/injury provided in patient history. TECHNIQUE: Routine 5 mm thick axial images were acquired from the thoracic inlet through the pelvis without contrast. CT was performed with one or more of the following dose reduction techniques: Automated exposure control, adjustment of the mA and/or kV according to patient size, or use of iterative reconstruction technique. COMPARISON: None FINDINGS: CT CHEST: Endotracheal tube is present. Distal end of NG tube enters the stomach and tip returns to near the gastroesophageal junction. The heart size is normal. Coronary arterial wall calcific plaque noted. No pericardial effusion noted. Trace calcific plaque along the aortic arch john without aneurysmal dilation. The trachea and airways are patent. No evidence for pulmonary nodule, consolidation, or cavitary lesion. No axillary, hilar, or mediastinal lymphadenopathy. Trace bilateral pleural fluid with subjacent passive atelectasis. No evidence for pneumothorax. Chronic severe T5 vertebral body compression deformity. Chronic lower sternal fracture deformity. Chronic lateral right lower rib fracture deformities. A few chronic lateral left lower rib fracture deformities. CT ABDOMEN: The liver is normal in size and smooth in contour without biliary duct dilation. The spleen is normal in size.. The gallbladder is absent. The pancreas appears normal without pancreatic duct dilation. The adrenal glands appear normal. Both kidneys appear normal. . No evidence for intra-abdominal free air or free or organized fluid collection. No aortic aneurysmal dilation.. CT PELVIS: Left groin surgical clips. No evidence for free air or free or organized pelvic fluid collection. No significant pelvic adenopathy detected. Several diverticula along the distal greater than proximal colon, and moderate stool burden. Terminal ileum also appears normal. The appendix appears normal. Choi catheter occupies the urinary bladder. Streak artifact from L4-L5 and L5-S1 interbody spacers. IMPRESSION: No specific site of pain/injury provided in patient history. 1. Trace bilateral pleural fluid with subjacent passive atelectasis, but no evidence for any acute thoracic, abdominal, pelvic, or spinal injury. 2. Diverticulosis coli and moderate stool burden. 3. Arteriosclerotic disease as described. 4. Distal end of NG tube enters the stomach and tip returns to near the gastroesophageal junction.
== END 2024-12-22 17:43 | disposition short-term general hospital (02) ==
LOC: EDH 12:20
DX: S06.5XAA Traumatic subdural hemorrhage with loss of consciousness status unknown, initial encounter (principal); I10 Essential (primary) hypertension; Z79.02 Long term (current) use of antithrombotics/antiplatelets; Z79.84 Long term (current) use of oral hypoglycemic drugs; Z79.899 Other long term (current) drug therapy; Z90.49 Acquired absence of other specified parts of digestive tract; W18.39XA Other fall on same level, initial encounter; Y93.89 Activity, other specified; Y92.89 Other specified places as the place of occurrence of the external cause; Y99.8 Other external cause status
CPT/HCPCS: 99291; 31500; 70450 ×2; 96365; 96366; 71045 ×2; 84484; 80048; 85025; 85610; 85730; 36415; 72125; 71250; 74176; 93005; 96368; J1953; J3490 ×5; J2704; J7050; 71260; 74177; 94002; J2150; Q9967